=== PATIENT | female | born 1940 | race Caucasian/White ===

== ENCOUNTER 2023-07-06 05:36 | Inpatient (IN) | payer MEDICARE ==
[2023-07-06 05:51] LABS: Glucose,Whole Blood 220 mg/dL (70-110)
[2023-07-06 05:59] LABS: Basophils % (A) 0 %; Eosinophils # (A) 0.1 k/uL (0-0.7); Eosinophils % (A) 1 %; HCT 38.9 % (34.0-46.0); HGB 12.4 gm/dL (11.4-16.0); Hypochromasia Slight; Lymphocytes # (A) 0.5 k/uL (1.0-4.8); Lymphocytes % (A) 3 %; MCH 28.4 pg (25.0-35.0); MCHC 31.9 g/dL (31.0-37.0); MCV 89.1 fL (80.0-100.0); Mean Platelet Volume 9.2; Monocytes # (A) 0.3 k/uL (0-1.0); Monocytes % (A) 2 %; Neutrophils # (A) 14.8 k/uL (1.3-7.7); Neutrophils % (A) 94 %; Platelet Count 318 k/uL (150-450); RBC 4.36 m/uL (3.80-5.40); RDW 14.7 % (11.5-15.5); WBC 15.8 k/uL (3.8-10.6)
[2023-07-06 06:09] LABS: ALT 28 U/L (4-34); AST 35 U/L (14-36); African American GFR (CKD) >90 (>60 ml/min/1.73 sqM); Albumin 3.2 g/dL (3.5-5.0); Alkaline Phosphatase 102 U/L (38-126); Anion Gap 11 mmol/L; Blood Urea Nitrogen 15 mg/dL (7-17); Calcium 8.2 mg/dL (8.4-10.2); Carbon Dioxide 29 mmol/L (22-30); Chloride 93 mmol/L (98-107); Creatine Kinase 26 U/L (30-135); Glucose 235 mg/dL (74-99); Non-African American GFR(CKD) 83 (>60 ml/min/1.73 sqM); Sodium 133 mmol/L (137-145); Total Bilirubin 1.5 mg/dL (0.2-1.3)
--- NOTE | 2023-07-06 06:11 | ED ---
General Adult HPI - General Stated complaint: Possible stroke Time Seen by Provider: 07/06/23 05:38 Source: EMS Mode of arrival: EMS Limitations: altered mental status - History of Present Illness Initial comments: This is an 82-year-old female with a past medical history including previous CVA with right-sided deficits presents emergency department via EMS from a nursing facility for concern for a new stroke. It was reported the patient recently went to her nursing facility yesterday and was speaking it having full conversations around 10 PM which was her last known normal. The patient was awoken at 4:30 this morning and was reportedly minimally responsive, only to painful stimuli. EMS was called and arrival of the patient was responsive to painful stimuli however had slurring of speech and inability to answer any questions. On arrival, the patient was slurring her speech and mumbling without any comprehensible words. The patient denied of any movement in any of her extremities against gravity. The patient was able to provide any further answers any questions. - Related Data Home Medications Medication Instructions Recorded Confirmed Acetaminophen [Tylenol 8 Hour] 650 mg PO Q6H PRN 07/06/23 07/06/23 Apixaban [Eliquis] 2.5 mg PO BID@0700,1900 07/06/23 07/06/23 Aspirin 81 mg PO DAILY 07/06/23 07/06/23 Atorvastatin [Lipitor] 40 mg PO HS@199907/06/23 07/06/23 Citalopram Hydrobromide [CeleXA] 20 mg PO DAILY 07/06/23 07/06/23 Fludrocortisone [Florinef] 0.1 mg PO DAILY 07/06/23 07/06/23 Icy Hot Back External Patch 5% 1 patch TRANSDERM 07/06/23 07/06/23 Insulin Glargine,Hum.rec.anlog 5 units SQ HS@199907/06/23 07/06/23 [Lantus Solostar Pen] Insulin Lispro [humaLOG Kwikpen] See Protocol SQ ACHS 07/06/23 07/06/23 Levothyroxine Sodium [Synthroid] 25 mcg PO DAILY@0500 07/06/23 07/06/23 Metoprolol Tartrate [Lopressor] 25 mg PO BID 07/06/23 07/06/23 Multivitamins, Thera [Multivitamin 1 tab PO DAILY 07/06/23 07/06/23 (formulary)] amLODIPine [Norvasc] 5 mg PO DAILY 07/06/23 07/06/23 Allergies Allergy/AdvReac Type Severity Reaction Status Date / Time Sulfa (Sulfonamide Allergy Unknown Verified 07/06/23 08:03 Antibiotics) Review of Systems ROS Statement: Those systems with pertinent positive or pertinent negative responses have been documented in the HPI. ROS Other: All systems not noted in ROS Statement are negative. General Exam Limitations: altered mental status (ANOx0), physical limitation General appearance: lethargic Head exam: Present: atraumatic, normocephalic, normal inspection Eye exam: Present: normal appearance, PERRL Pupils: Present: normal accommodation ENT exam: Present: normal exam, normal oropharynx, mucous membranes moist Neck exam: Present: normal inspection, full ROM Respiratory exam: Present: normal lung sounds bilaterally Cardiovascular Exam: Present: normal rhythm, tachycardia, normal heart sounds GI/Abdominal exam: Present: soft, normal bowel sounds Extremities exam: Present: normal inspection, other (No movement of any e xtremity to gravity). Absent: full ROM Back exam: Present: normal inspection, full ROM Neurological exam: Present: altered (ANOx0), motor sensory deficit. Absent: alert, oriented X3, CN II-XII intact Psychiatric exam: Present: normal affect, other (Lethargic, arouses to painful stimuli only). Absent: normal mood Skin exam: Present: warm, dry Course Vital Signs 07/06/23 07/06/23 07/06/23 05:42 05:46 06:08 Temperature 96.9 F L Pulse Rate 112 H 96 93 Respiratory 22 20 20 Rate Blood Pressure 136/72 139/71 142/78 O2 Sat by Pulse 90 L 93 L 95 Oximetry Fraction of Inspired Oxygen (FIO2) 07/06/23 07/06/23 07/06/23 06:38 06:53 07:23 Temperature Pulse Rate 98 93 96 Respiratory 18 19 20 Rate Blood Pressure 136/78 118/73 O2 Sat by Pulse 96 95 96 Oximetry Fraction of Inspired Oxygen (FIO2) 07/06/23 07/06/23 07/06/23 12:00 16:00 18:30 Temperature 98.1 F 98.3 F Pulse Rate 98 85 120 H Respiratory 15 12 24 Rate Blood Pressure 156/86 140/70 171/107 O2 Sat by Pulse 97 95 79 L Oximetry Fraction of Inspired Oxygen (FIO2) 07/06/23 07/06/23 07/06/23 19:23 19:41 20:00 Temperature 98.1 F Pulse Rate 101 H Respiratory 24 Rate Blood Pressure 157/87 O2 Sat by Pulse 100 Oximetry Fraction of 100 100 Inspired Oxygen (FIO2) EKG Findings - EKG Comments: EKG Findings:: An EKG was obtained and was interpreted by myself showing a rate of 106, QRS duration of 91, QTC of 423. This EKG showed an atrial fibrillation with minor rapid ventricular response. There was however no ST segment elevation or depression noted. Medical Decision Making - Medical Decision Making Was pt. sent in by a medical professional or institution (, PA, TELEGRAPH INSPECTOR, urgent care, hospital, or [facility]...) When possible be specific @ -Yes, patient was sent in by nursing facility Did you speak to anyone other than the patient for history (EMS, parent, family, police, friend...)? What history was obtained from this source @ -Yes, EMS who stated the patient's last known normal was at 10 PM and was found at 4:30 this morning. Did you review nursing and triage notes (agree or disagree)? Why? @ -I reviewed and agree with nursing and triage notes Were old charts reviewed (outside hosp., previous admission, EMS record, old EKG, old radiological studies, urgent care reports/EKG's, [facility] records)? Report findings @ -No old charts were reviewed Differential Diagnosis (chest pain, altered mental status, abdominal pain women, abdominal pain men, vaginal bleeding, weakness, fever, dyspnea, syncope, headache, dizziness, GI bleed, back pain, seizure, CVA, palpatations, mental health)? @ -CVA, TIA, intracranial hemorrhage, intracranial mass EKG interpreted by me (3pts min.). @ -As above X-rays interpreted by me (1pt min.). @ -Chest x-ray was ordered at this time. CT interpreted by me (1pt min.). @ -CT head and CTA head and neck was obtained per stroke protocol and was interpreted by myself showing a right pericolosal artery occlusion and a chronic left-sided infarct. U/S interpreted by me (1pt. min.). @ -None done What testing was considered but not performed or refused? (CT, X-rays, U/S, labs)? Why? @ -None What meds were considered but not given or refused? Why? @ -None Did you discuss the management of the patient with other professionals (liza burns i.e., Dr., PA, TELEGRAPH INSPECTOR, lab, RT, psych nurse, sr. social media & mobile manager, portable power tool repairer, teacher, chief operations officer, home health care case manager)? Give summary @ -Yes, neurointerventionalist, Dr. Garcia was contacted per protocol at [phone]. He denied agreed that the patient is not a TPA candidate at this time as she is outside the window. The primary care physician was also contacted regarding admission. Was smoking cessation discussed for >3mins.? @ -No Was critical care preformed (if so, how long)? @ -Yes, see above Were there social determinants of health that impacted care today? How? (Homelessness, low income, unemployed, alcoholism, drug addiction, transportation, low edu. Level, literacy, decrease access to med. care, skilled nursing, rehab)? @ -No Was there de-escalation of care discussed even if they declined (Discuss DNR or withdrawal of care, Hospice)? DNR status @ -No What co-morbidities impacted this encounter? (DM, HTN, Smoking, COPD, CAD, Cancer, CVA, ARF, Chemo, Hep., AIDS, mental health diagnosis, sleep apnea, morbid obesity)? @ -Previous CVA, atrial fibrillation, hypertension Was patient admitted / discharged? Hospital course, mention meds given and route, prescriptions, significant lab abnormalities, going to OR and other pertinent info. @ -The patient was seen and evaluated in emergency department. Immediately on arrival, code stroke was called and code stroke protocol was followed. Imaging and laboratory workup was obtained. The patient had a significantly high NIH of 32 secondary to inability of the patient to follow commands and significant deficits. She was outside the window decided to be candidate at this time. Undiagnosed new problem with uncertain prognosis? @ -No Drug Therapy requiring intensive monitoring for toxicity (Heparin, Nitro, Insulin, Cardizem)? @ -No Were any procedures done? @ -No Diagnosis/symptom? @ -Acute CVA Acute, or Chronic, or Acute on Chronic? @ -Acute Uncomplicated (without systemic symptoms) or Complicated (systemic symptoms)? @ -Complicated Side effects of treatment? @ -No Exacerbation, Progression, or Severe Exacerbation? @ -No Poses a threat to life or bodily function? How? (Chest pain, [place], [place], pneumonia, PE, COPD, DKA, ARF, appy, cholecystitis, CVA, Diverticulitis, Homicidal, Suicidal, threat to staff... and all critical care pts) @ -Yes, worsening CVA can lead to permanent damage and possible . - Lab Data Result diagrams: 07/06/23 13:20 07/06/23 05:50 Lab Results 07/06/23 07/06/23 07/06/23 Range/Units 05:49 05:50 05:50 WBC 15.8 H (3.8-10.6) k/uL RBC 4.36 (3.80-5.40) m/uL Hgb 12.4 (11.4-16.0) gm/dL Hct 38.9 (34.0-46.0) % MCV 89.1 (80.0-100.0) fL MCH 28.4 (25.0-35.0) pg MCHC 31.9 (31.0-37.0) g/dL RDW 14.7 (11.5-15.5) % Plt Count 318 (150-450) k/uL MPV 9.2 Neutrophils % 94 % Lymphocytes % 3 % Monocytes % 2 % Eosinophils % 1 % Basophils % 0 % Neutrophils # 14.8 H (1.3-7.7) k/uL Lymphocytes # 0.5 L (1.0-4.8) k/uL Monocytes # 0.3 (0-1.0) k/uL Eosinophils # 0.1 (0-0.7) k/uL Basophils # 0.0 (0-0.2) k/uL Hypochromasia Slight PT 11.5 (9.0-12.0) sec INR 1.1 (<1.2) APTT 23.8 (22.0-30.0) sec Sodium (137-145) mmol/L Potassium (3.5-5.1) mmol/L Chloride (98-107) mmol/L Carbon Dioxide (22-30) mmol/L Anion Gap mmol/L BUN (7-17) mg/dL Creatinine (0.52-1.04) mg/dL Est GFR (CKD-EPI)AfAm (>60 ml/min/1.73 sqM) Est GFR (CKD-EPI)NonAf (>60 ml/min/1.73 sqM) Glucose (74-99) mg/dL POC Glucose (mg/dL) 220 H (70-110) mg/dL POC Glu Possum Trapper ID Christos Lauren Calcium (8.4-10.2) mg/dL Total Bilirubin (0.2-1.3) mg/dL AST (14-36) U/L ALT (4-34) U/L Alkaline Phosphatase (38-126) U/L Creatine Kinase (30-135) U/L Troponin I (0.000-0.034) ng/mL Total Protein (6.3-8.2) g/dL Albumin (3.5-5.0) g/dL 07/06/23 07/06/23 Range/Units 05:50 05:50 WBC (3.8-10.6) k/uL RBC (3.80-5.40) m/uL Hgb (11.4-16.0) gm/dL Hct (34.0-46.0) % MCV (80.0-100.0) fL MCH (25.0-35.0) pg MCHC (31.0-37.0) g/dL RDW (11.5-15.5) % Plt Count (150-450) k/uL MPV Neutrophils % % Lymphocytes % % Monocytes % % Eosinophils % % Basophils % % Neutrophils # (1.3-7.7) k/uL Lymphocytes # (1.0-4.8) k/uL Monocytes # (0-1.0) k/uL Eosinophils # (0-0.7) k/uL Basophils # (0-0.2) k/uL Hypochromasia PT (9.0-12.0) sec INR (<1.2) APTT (22.0-30.0) sec Sodium 133 L (137-145) mmol/L Potassium 3.4 L (3.5-5.1) mmol/L Chloride 93 L (98-107) mmol/L Carbon Dioxide 29 (22-30) mmol/L Anion Gap 11 mmol/L BUN 15 (7-17) mg/dL Creatinine 0.63 (0.52-1.04) mg/dL Est GFR (CKD-EPI)AfAm >90 (>60 ml/min/1.73 sqM) Est GFR (CKD-EPI)NonAf 83 (>60 ml/min/1.73 sqM) Glucose 235 H (74-99) mg/dL POC Glucose (mg/dL) (70-110) mg/dL POC Glu Possum Trapper ID Calcium 8.2 L (8.4-10.2) mg/dL Total Bilirubin 1.5 H (0.2-1.3) mg/dL AST 35 (14-36) U/L ALT 28 (4-34) U/L Alkaline Phosphatase 102 (38-126) U/L Creatine Kinase 26 L (30-135) U/L Troponin I <0.012 (0.000-0.034) ng/mL Total Protein 7.0 (6.3-8.2) g/dL Albumin 3.2 L (3.5-5.0) g/dL Critical Care Time Critical Care Time: Yes Total Critical Care Time: 35 Disposition Clinical Impression: CVA (cerebral vascular accident) Disposition: ADMITTED IP TO THIS [facility] Condition: Serious Is patient prescribed a controlled substance at d/c from ED?: No Time of Disposition: 06:30 Decision to Admit Reason: Admit from EC Decision Date: 07/06/23 Decision Time: 06:30
[2023-07-06 06:12] LABS: Potassium 3.4 mmol/L (3.5-5.1)
--- NOTE | 2023-07-06 06:31 | CT ---
EXAM: CT Head Without Intravenous Contrast CLINICAL HISTORY: ITS.REASON CT Reason: Neuro deficit, acute, stroke suspected TECHNIQUE: Axial computed tomography images of the head/brain without intravenous contrast. CTDI is 56 mGy and DLP is 1633.6 mGy-cm. This CT exam was performed using one or more of the following dose reduction techniques: automated exposure control, adjustment of the mA and/or kV according to patient size, and/or use of iterative reconstruction technique. COMPARISON: No relevant prior studies available. FINDINGS: Brain: Encephalomalacia within the left superior frontal gyrus with additional hypodensity extending to the left middle frontal gyrus. Findings likely relate to chronic infarction. No signs of acute infarction identified. Consider MRI if there is further concern. Areas of decreased attenuation in the deep cerebral white matter are consistent with small vessel ischemic/degenerative changes. The cerebral and cerebellar sulci are prominent consistent with brain atrophy. No hemorrhage. Ventricles: Unremarkable. No ventriculomegaly. Bones/joints: Unremarkable. No acute fracture. Soft tissues: Unremarkable. Vasculature: Atherosclerotic disease. Sinuses: Unremarkable as visualized. Mastoid air cells: Unremarkable as visualized. No mastoid effusion. Orbits: Bilateral lens replacements. IMPRESSION: 1. Encephalomalacia within the left superior frontal gyrus with additional hypodensity extending to the left middle frontal gyrus. Findings likely relate to chronic infarction. No signs of acute infarction identified. Consider MRI if there is further concern. 2. Small vessel ischemic/degenerative changes. 3. Cerebral and cerebellar atrophy.
--- NOTE | 2023-07-06 06:36 | CT ---
EXAM: CT Angiography Head and Neck With Intravenous Contrast CLINICAL HISTORY: ITS.REASON CT Reason: Neuro deficit, acute, stroke suspected TECHNIQUE: [place] of [place]/head and neck CT angiography protocol performed with intravenous contrast. CTDI is 48.8 mGy and DLP is 1119 mGy-cm. This CT exam was performed using one or more of the following dose reduction techniques: automated exposure control, adjustment of the mA and/or kV according to patient size, and/or use of iterative reconstruction technique. MIP reconstructed images were created and reviewed. COMPARISON: None. FINDINGS: Limitations: Limited examination given lack of thin axial imaging of the head. This limits diagnostic accuracy. HEAD: Right anterior cerebral artery: Unremarkable. No significant stenosis at the visualized segments. Anterior communicating artery is present. No aneurysm. Right middle cerebral artery: Unremarkable. No significant stenosis at the visualized segments. No aneurysm. Right posterior cerebral artery: Unremarkable. No occlusion or significant stenosis. No aneurysm. Right intracranial internal carotid artery: Moderate stenosis of the supraclinoid right internal carotid artery. No dissection or occlusion. Right intracranial vertebral artery: Unremarkable. No significant stenosis. No dissection or occlusion. Left anterior cerebral artery: Unremarkable. No significant stenosis at the visualized segments. No aneurysm. Left middle cerebral artery: Unremarkable. No significant stenosis at the visualized segments. No aneurysm. Left posterior cerebral artery: Unremarkable. No occlusion or significant stenosis. No aneurysm. Left intracranial internal carotid artery: Unremarkable. No significant stenosis. No dissection or occlusion. Left intracranial vertebral artery: Unremarkable. No significant stenosis. No dissection or occlusion. Basilar artery: Unremarkable. No significant stenosis. No aneurysm. Other vasculature: Atherosclerotic calcifications and plaque at the proximal left internal carotid artery without evidence of flow-limiting stenosis per NASCET criteria. Atherosclerotic calcifications and plaque at the proximal right internal carotid artery without evidence of flow- limiting stenosis per NASCET criteria. 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 Consider correlation with neurologic examination. NECK: Right common carotid artery: Unremarkable. No significant stenosis. No dissection or occlusion. Right extracranial internal carotid artery: Unremarkable. No significant stenosis. No dissection or occlusion. Right external carotid artery: Unremarkable. No occlusion. Right extracranial vertebral artery: Unremarkable. No significant stenosis. No dissection or occlusion. Left common carotid artery: Unremarkable. No significant stenosis. No dissection or occlusion. Left extracranial internal carotid artery: Unremarkable. No significant stenosis. No dissection or occlusion. Left external carotid artery: Unremarkable. No occlusion. Left extracranial vertebral artery: Unremarkable. No significant stenosis. No dissection or occlusion. Lung apices: Unremarkable as visualized. HEAD and NECK: Bones/joints: Moderate right vertebral ostial stenosis. No discrete lytic or blastic abnormalities. Soft tissues: Unremarkable. CAROTID STENOSIS REFERENCE USING NASCET CRITERIA: % ICA stenosis = (1 - narrowest ICA diameter/diameter of distal cervical ICA) x 100. Mild - <50% stenosis. Moderate - 50-69% stenosis. Severe - 70-94% stenosis. Near occlusion - 95-99% stenosis. Occluded - 100% stenosis. IMPRESSION: 1. Limited examination given lack of thin axial imaging of the head. This limits diagnostic accuracy. 2. 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 Consider correlation with neurologic examination. 3. [place] of atherosclerotic disease as described in the body of report. <MYCVCSECTION> Communications: 07/06/23 06:47 Call Doctor Regarding Above results, called Dr. Torres on 07/06 06:47 (-04:00)
[2023-07-06 06:45] LABS: INR 1.1 (<1.2); Partial Thromboplastin Time 23.8 sec (22.0-30.0); Prothrombin Time 11.5 sec (9.0-12.0)
[2023-07-06] MEDS: SODIUM CHLORIDE 0.9% 1,000 ML IV SCH (06:48)
--- NOTE | 2023-07-06 07:32 | XR ---
EXAMINATION TYPE: XR chest 1V portable DATE OF EXAM: 07/06/2023 HISTORY: Shortness of breath. COMPARISON: None. TECHNIQUE: Single view of the chest is submitted. FINDINGS: Demonstrated are scattered senescent parenchymal change. There is pulmonary venous congestion scattered infiltrates, bilateral pleural effusions and cardiomeg nhan. Hilar and mediastinal structures are within normal limits. Degenerative changes are seen of the dorsal spine. IMPRESSION: 1. There is pulmonary venous congestion scattered infiltrates, bilateral pleural effusions and cardi omegaly.
--- NOTE | 2023-07-06 10:50 | US ---
EXAMINATION TYPE: US carotid duplex BILAT DATE OF EXAM: 07/06/2023 COMPARISON: CTA CLINICAL INDICATION: Female, 82 years old with history of stroke; Stroke, unresponsive TECHNIQUE: Carotid duplex ultrasound examination. Indirect Doppler criteria was utilized. FINDINGS: EXAM MEASUREMENTS: RIGHT: Peak Systolic Velocity (PSV) cm/sec ----- Right CCA: 51.9 ----- Right ICA: 72.4 ----- Right ECA: 100.0 ICA/CCA ratio: 1.4 RIGHT: End Diastole cm/sec ----- Right CCA: 9.2 ----- Right ICA: 9.8 ----- Right ECA: 0.0 LEFT: Peak Systolic Velocity (PSV) cm/sec ----- Left CCA: 46.9 ----- Left ICA: 63.6 ----- Left ECA: 86.7 ICA/CCA ratio: 1.4 LEFT: End Diastole cm/sec ----- Left CCA: 12.0 ----- Left ICA: 23.5 ----- Left ECA: 0.0 VERTEBRALS (direction of flow): Right Vertebral: Antegrade Left Vertebral: Antegrade Rhythm: Arrhythmia GLASS SAGGER NOTES: Pt heavy breathing, unresponsive during exam- difficult to scan No evidence of elevated velocities bilaterally IMPRESSION: Bilateral atherosclerotic changes with no significant hemodynamic stenosis identified. Criteria for Assigning % of Stenosis / Diameter reduction (Estimation based on the indirect measurements of the internal carotid artery velocities (ICA PSV). 1. Normal (no stenosis)=ICA PSV < 125 cm/s: ratio < 2.0: ICA EDV<40 cm/s. 2. Less than 50% stenosis=ICA PSV < 125 cm/s: ratio < 2.0: ICA EDV<40 cm/s. 3. 50 to 69% stenosis=ICA PSV of 125 to 230 cm/s: ration 2.0 ? 4.0: ICA EDV 40-100 cm/s. 4. Greater than 70% stenosis to near occlusion= ICA PSV > 230 cm/s: ratio > 4.0: ICA EDV > 100 cm/s. 5. Near occlusion= ICA PSV velocities may be low or undetectable: variable ratio and ICA EDV. 6. Total occlusion=unable to detect flow.
[2023-07-06] MEDS ORDERED: ACETAMINOPHEN TAB 325 MG TAB PO PRN (12:18)
--- NOTE | 2023-07-06 12:22 | P.CNNES ---
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 History is obtained from the patient's daughters were at bedside as well as medical record. According to patient daughters the patient the currently resides in [place] and it seems that she had an episode of unresponsiveness. Per the daughter the patient had an episode of unresponsiveness this past Sunday and it was brief. She had extensive workup and multiple EEGs according to the daughter and was negative for seizure. She had her initial stroke in January 2023 and had another stroke about 3 days ago. Per the daughter with her stroke she has episode of unresponsiveness in the past. She had EEG's and was told no seizure. She was evaluated by Dr. Mondragon and according to the daughter initially that when the patient was having episode of unresponsiveness she was initially placed on the Keppra but that was weaned off and then eventually stopped in April 2023 since was not felt they were seizures. According to the daughter the EEG she thinks they're short EEGs less than 1 hour. Currently she is more responsive for now. Patient is on eliquis 2.5mg bid, ASA 81mg daily and Lipitor 40mg daily as home medications. Some of the workup during his hospital visit consisted of: White blood cells 5.8 thousand and slightly neutrophilic Initial serum glucose is 235. Calcium is 8.2. Sodium is 133. Potassium 3.4. AST and ALT is within normal limits. CT of the head is reported as encephalomalacia with left superior frontal gyrus additional hypodensity and extending to the left middle frontal gyrus. Findings likely related to chronic infarction. No signs of acute infarction identified. Consider MRI there is further concern. Small vessel ischemic/degenerative changes. Cerebral and cerebellar atrophy. 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 CT of the head and neck was reported as limited examination given the lack of thin axial imaging of the head. This limits diagnostic accuracy. 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 Consider correlation with neurologic examination. [place] of atherosclerotic disease as described in the body of the report. Carotid duplex is reported as bilateral after squatting changes with no significant hemodynamic stenosis identified. Review of Systems Review of system: The 12 point system was reviewed and apparent positive and negative per HPI. Medications and Allergies Home Medications Medication Instructions Recorded Confirmed Type Acetaminophen [Tylenol 8 Hour] 650 mg PO Q6H PRN 07/06/23 07/06/23 History Apixaban [Eliquis] 2.5 mg PO BID@0700,1900 07/06/23 07/06/23 History Aspirin 81 mg PO DAILY 07/06/23 07/06/23 History Atorvastatin [Lipitor] 40 mg PO HS@199907/06/23 07/06/23 History Citalopram Hydrobromide [CeleXA] 20 mg PO DAILY 07/06/23 07/06/23 History Fludrocortisone [Florinef] 0.1 mg PO DAILY 07/06/23 07/06/23 History Icy Hot Back External Patch 5% 1 patch TRANSDERM HS 07/06/23 07/06/23 History Insulin Glargine,Hum.rec.anlog 5 units SQ HS@199907/06/23 07/06/23 History [Lantus Solostar Pen] Insulin Lispro [humaLOG Kwikpen] See Protocol SQ ACHS 07/06/23 07/06/23 History Levothyroxine Sodium [Synthroid] 25 mcg PO DAILY@0500 07/06/23 07/06/23 History Metoprolol Tartrate [Lopressor] 25 mg PO BID 07/06/23 07/06/23 History Multivitamins, Thera [Multivitamin 1 tab PO DAILY 07/06/23 07/06/23 History (formulary)] amLODIPine [Norvasc] 5 mg PO DAILY 07/06/23 07/06/23 History Allergies Allergy/AdvReac Type Severity Reaction Status Date / Time Sulfa (Sulfonamide Allergy Unknown Verified 07/06/23 08:03 Antibiotics) Physical Examination - Vital Signs Vital Signs: Vital Signs Temp Pulse Resp BP Pulse Ox 07/06/23 07:23 96 20 118/73 96 07/06/23 06:53 93 19 136/78 95 07/06/23 06:38 98 18 96 07/06/23 06:08 93 20 142/78 95 07/06/23 05:46 96 20 139/71 93 L 07/06/23 05:42 96.9 F L 112 H 22 136/72 90 L Intake and Output 07/05/23 07/06/23 07/06/23 22:59 06:59 14:59 Other: Weight 70 kg GENERAL: The patient is lying in bed and is not in acute distress. NEUROLOGICAL: Higher mental function: The patient is awake, alert, oriented to self, time. Patient states she is in the hospital but states she's over at [facility] then later states she is in [place]. Patient is slow following commands. Patient is following simple commands. Language is limited but no aphasia. No neglect. Cranial nerves: The pupils are round, equal and reactive to light. Visual vega are full to confrontation throughout. Extraocular movement is intact no nystagmus is noted. Facial sensation is normal to touch throughout. The facial strength is normal throughout. Tongue is midline and moved [id number] without any difficulty. No dysarthria is noted. Has mild hypophonia. Motor: The strength is limited in assessment individual muscles because of cooperation. Is lifting bilateral upper extremities but had to ascetain if focal weakness. Lowers are very limited but is able to wiggle right toes but not movement on the left (per family her baseline is has movement on the left). Normal bulk. Cerebellum: Unable to assess. Sensation: Inconsistent. Reflexes (right/left): Unable to assess. Plantars are mute bilaterally. Results - Laboratory Findings CBC and BMP: 07/06/23 05:50 07/06/23 05:50 Abnormal Lab Findings: Abnormal Labs 07/06/23 07/06/23 07/06/23 05:49 05:50 05:50 WBC 15.8 H Neutrophils # 14.8 H Lymphocytes # 0.5 L Sodium 133 L Potassium 3.4 L Chloride 93 L Glucose 235 H POC Glucose (mg/dL) 220 H Calcium 8.2 L Total Bilirubin 1.5 H Creatine Kinase 26 L Albumin 3.2 L Assessment and Plan Assessment: This is an 82-year-old woman with history of multiple strokes with residual righ t lower extremity weakness, atrial fibrillation on eliquis and ASA, episodes of unresponsiveness but had EEGs in the past and was told no seizures and was initially on short course of Keppra but eventually discontinued by her neurologist in April 2023 who presented emergency department because of the episode of unresponsiveness over [place]. Episode of unresponsiveness and on examination has significant left leg weakness--- rule out acute ischemic stroke versus post ictal ?occlusion of right pericallosal artery just distal to its ostium on CTA but examination is limited. History of multiple strokes (left JEAN territory stroke) in the first stroke is in January 2023 and the last one was about 3 weeks ago with residual right lower extremity weakness History of unresponsiveness and had multiple routine EEGs according to family members and it was feltseizures therefore Keppra was discontinued in April 2023 History of atrial fibrillation on eliquis and ASA. Plan: I ordered MRI of the brain, MRA of the head to rule out any stroke or any occlusion. And ordered 2D echo. Lipid panel is ordered and pending. I ordered a routine EEG to rule out any underlying seizure or discharges. I spoke with the family members (daughters) and they want to hold off antiepileptic use until the workup is done. If MR the brain is negative for acute stroke consider possible starting antiepileptic drug since it is possible that her prior EEGs were negative for any seizures or discharges since with are not capturing the episode while they're happening. Also consider a prolonged EEG as an outpatient. Family would like to keep her on the same dose of Eliquis 2.5mg bid and ASA 81mg daily. But if she does have any acute ischemic stroke then the event focal upon Eliquis or will change aspirin to Plavix. Continue Lipitor 40 mg daily at bedtime for secondary stroke prophylaxis I ordered TSH, vitamin B12, folate, ammonia, HbA1c. Continue neuro checks Cardiac monitoring PT, OT and RECORD CENTER COORDINATOR are consulted. Will defer the rest of medical management to the primary team. The plan is discussed with patient and her two daughters who are at bedside. Thank you for the consultation. Dr. Roca will start neurology service tomorrow A.M. Time with Patient: Greater than 30
[2023-07-06] MEDS: HYDROcodone/APAP 5-325MG 1 EACH TAB PO PRN (13:04)
[2023-07-06] MEDS: ASPIRIN 81 MG PO SCH (13:04)
[2023-07-06 13:44] LABS: Basophils % (A) 0 %; Eosinophils # (A) 0.1 k/uL (0-0.7); Eosinophils % (A) 1 %; HCT 35.1 % (34.0-46.0); HGB 11.4 gm/dL (11.4-16.0); Hypochromasia Slight; Lymphocytes # (A) 0.7 k/uL (1.0-4.8); Lymphocytes % (A) 5 %; MCH 28.9 pg (25.0-35.0); MCHC 32.4 g/dL (31.0-37.0); MCV 89.1 fL (80.0-100.0); Mean Platelet Volume 9.1; Monocytes # (A) 0.4 k/uL (0-1.0); Monocytes % (A) 3 %; Neutrophils # (A) 11.1 k/uL (1.3-7.7); Neutrophils % (A) 90 %; Platelet Count 291 k/uL (150-450); RBC 3.94 m/uL (3.80-5.40); RDW 14.7 % (11.5-15.5); WBC 12.3 k/uL (3.8-10.6)
--- NOTE | 2023-07-06 17:21 | P.HPIM ---
History of Present Illness H&P Date: 07/06/23 Chief Complaint: Altered mental status 82-year-old female with a past medical history including previous CVA with right-sided deficits presents emergency department via EMS from a nursing facility for concern for a new stroke. It was reported the patient recently went to her nursing facility yesterday and was speaking it having full conversa tions around 10 PM which was her last known normal. The patient was awoken at 4:30 this morning and was reportedly minimally responsive, only to painful stimuli. EMS was called and arrival of the patient was responsive to painful stimuli however had slurring of speech and inability to answer any questions. On arrival, the patient was slurring her speech and mumbling without any comprehensible words. The patient denied of any movement in any of her extremities against gravity. The patient was able to provide any further answers any questions. White blood cells 5.8 thousand and slightly neutrophilic Initial serum glucose is 235. Calcium is 8.2. Sodium is 133. Potassium 3.4. AST and ALT is within normal limits. CT of the head is reported as encephalomalacia with left superior frontal gyrus additional hypodensity and extending to the left middle frontal gyrus. Findings likely related to chronic infarction. No signs of acute infarction identified. Consider MRI there is further concern. Small vessel ischemic/degenerative changes. Cerebral and cerebellar atrophy. CT of the head and neck was reported as limited examination given the lack of thin axial imaging of the head. This limits diagnostic accuracy. 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 Consider correlation with neurologic examination. Carotid duplex is reported as bilateral after squatting changes with no significant hemodynamic stenosis identified. Review of Systems REVIEW OF SYSTEMS: CONSTITUTIONAL: No fever, no malaise, no fatigue. HEENT: No recent visual problems or hearing problems. Denied any sore throat. CARDIOVASCULAR: No chest pain, orthopnea, PND, no palpitations, no syncope. PULMONARY: No shortness of breath, no cough, no hemoptysis. GASTROINTESTINAL: No diarrhea, no nausea, no vomiting, no abdominal pain. NEUROLOGICAL: No headaches, no weakness, no numbness. HEMATOLOGICAL: Denies any bleeding or petechiae. GENITOURINARY: Denies any burning micturition, frequency, or urgency. MUSCULOSKELETAL/RHEUMATOLOGICAL: Denies any joint pain, swelling, or any muscle pain. ENDOCRINE: Denies any polyuria or polydipsia. The rest of the 14-point review of systems is negative. Medications and Allergies Home Medications Medication Instructions Recorded Confirmed Type Acetaminophen [Tylenol 8 Hour] 650 mg PO Q6H PRN 07/06/23 07/06/23 History Apixaban [Eliquis] 2.5 mg PO BID@0700,1900 07/06/23 07/06/23 History Aspirin 81 mg PO DAILY 07/06/23 07/06/23 History Atorvastatin [Lipitor] 40 mg PO HS@199907/06/23 07/06/23 History Citalopram Hydrobromide [CeleXA] 20 mg PO DAILY 07/06/23 07/06/23 History Fludrocortisone [Florinef] 0.1 mg PO DAILY 07/06/23 07/06/23 History Icy Hot Back External Patch 5% 1 patch TRANSDERM HS 07/06/23 07/06/23 History Insulin Glargine,Hum.rec.anlog 5 units SQ HS@199907/06/23 07/06/23 History [Lantus Solostar Pen] Insulin Lispro [humaLOG Kwikpen] See Protocol SQ ACHS 07/06/23 07/06/23 History Levothyroxine Sodium [Synthroid] 25 mcg PO DAILY@0500 07/06/23 07/06/23 History Metoprolol Tartrate [Lopressor] 25 mg PO BID 07/06/23 07/06/23 History Multivitamins, Thera [Multivitamin 1 tab PO DAILY 07/06/23 07/06/23 History (formulary)] amLODIPine [Norvasc] 5 mg PO DAILY 07/06/23 07/06/23 History Allergies Allergy/AdvReac Type Severity Reaction Status Date / Time Sulfa (Sulfonamide Allergy Unknown Verified 07/06/23 08:03 Antibiotics) Physical Exam Vitals: Vital Signs Temp Pulse Resp BP Pulse Ox 07/06/23 07:23 96 20 118/73 96 07/06/23 06:53 93 19 136/78 95 07/06/23 06:38 98 18 96 07/06/23 06:08 93 20 142/78 95 07/06/23 05:46 96 20 139/71 93 L 07/06/23 05:42 96.9 F L 112 H 22 136/72 90 L Intake and Output 07/05/23 07/06/23 07/06/23 22:59 06:59 14:59 Other: Weight 70 kg General appearance: lethargic Head exam: Present: atraumatic, normocephalic, normal inspection Eye exam: Present: normal appearance, PERRL Pupils: Present: normal accommodation ENT exam: Present: normal exam, normal oropharynx, mucous membranes moist Neck exam: Present: normal inspection, full ROM Respiratory exam: Present: normal lung sounds bilaterally Cardiovascular Exam: Present: normal rhythm, tachycardia, normal heart sounds GI/Abdominal exam: Present: soft, normal bowel sounds Extremities exam: Present: normal inspection, other (No movement of any extremity to gravity). Absent: full ROM Back exam: Present: normal inspection, full ROM Neurological exam: Present: altered (ANOx0), motor sensory deficit. Absent: alert, oriented X3, CN II-XII intact Psychiatric exam: Present: normal affect, other (Lethargic, arouses to painful stimuli only). Absent: normal mood Skin exam: Present: warm, dry Results CBC & Chem 7: 07/06/23 13:20 07/06/23 05:50 Labs: Abnormal Lab Results - Last 24 Hours (Table) 07/06/23 07/06/23 07/06/23 Range/Units 05:49 05:50 05:50 WBC 15.8 H (3.8-10.6) k/uL Neutrophils # 14.8 H (1.3-7.7) k/uL Lymphocytes # 0.5 L (1.0-4.8) k/uL Sodium 133 L (137-145) mmol/L Potassium 3.4 L (3.5-5.1) mmol/L Chloride 93 L (98-107) mmol/L Glucose 235 H (74-99) mg/dL POC Glucose (mg/dL) 220 H (70-110) mg/dL Calcium 8.2 L (8.4-10.2) mg/dL Total Bilirubin 1.5 H (0.2-1.3) mg/dL Creatine Kinase 26 L (30-135) U/L Albumin 3.2 L (3.5-5.0) g/dL Assessment and Plan Assessment: 1. Weakness/episode of unresponsiveness; CVA versus seizure disorder -- CT reveals questionable occlusion of right pericallosal artery just distal to its ostium; examination seems to be limited -- Patient has been evaluated by neurology with following recommendations -- MRI/MRA of the brain; 2-D echo; EEG to rule out seizure disorder -- Lipid profile, TSH, vitamin B12, folate, ammonia, HbA1c ordered - Monitor neuro checks; continue cardiac monitoring - Consult PT/OT/LIQUEFIER -- keep her on the same dose of Eliquis 2.5mg bid and ASA 81mg daily. But if she does have any acute ischemic stroke then the event focal upon Eliquis or will change aspirin to Plavix. Continue Lipitor 40 mg daily at bedtime for secondary stroke prophylaxis 2. Hypertension; Norvasc 5 mg daily; metoprolol 25 mg twice a day 3. Diabetes mellitus; long-term insulin use; continue home dose of insulin glargine; monitor Accu-Cheks before meals and at bedtime with insulin sliding scale 4. Hyperlipidemia; Lipitor 40 mg by mouth daily at bedtime 5. History of atrial fibrillation; on eliquis and ASA; remains rate controlled on metoprolol. 6. Hypothyroidism; levothyroxin 25 MCG daily DVT prophylaxis; SCDs/systemic anticoagulation CODE STATUS; full code
--- NOTE | 2023-07-06 17:29 | EEG ---
ELECTROENCEPHALOGRAM REPORT CLINICAL HISTORY: This is an 82-year-old woman with a history of stroke, who presents from nursing facility because of episode of unresponsiveness. The video EEG is obtained to evaluate for seizure and epileptiform activity. RELEVANT MEDICATIONS: The patient is not on any antiepileptic drugs. EEG TYPE: A routine 21-channel EEG with video using the 10/20 electrode placement system. DESCRIPTION: Wakefulness is obtained. During awake state, the background consists of low-to- moderate voltage of 6 to 7 Hz intermixed with delta activity. There is no physiological stage II sleep architecture. There is no focal slowing. INTERICTAL AND ICTAL: None. ACTIVATION PROCEDURE: Photic stimulation did not evoke a posterior driving response. There is no abnormality during the photic stimulation. Hyperventilation is not performed. CLINICAL INTERPRETATION: This is an abnormal routine EEG. The background slowing is suggestive of mild-to- moderate encephalopathy. Otherwise, there is no focal slowing, epileptiform discharge, or seizure on the EEG. Clinical correlation is recommended. MMLAURA / GERARDON: [id number] / SANTO
[2023-07-06 18:07] LABS: Appearance,Urine Clear (Clear); Bilirubin,Urine Negative (Negative); Blood,Urine Negative (Negative); Color,Urine Yellow; Glucose,Urine (UA) 4+ (Negative); Ketones,Urine 1+ (Negative); Leukocyte Esterase,Urine Negative (Negative); Nitrite,Urine Negative (Negative); Protein,Urine Trace (Negative); Urobilinogen,Urine <2.0 mg/dL (<2.0)
[2023-07-06] MEDS ORDERED: FUROSEMIDE 10 MG/ML 4 ML VIAL IV STA (18:32)
[2023-07-06 18:50] LABS: ABG HCO3 32 mmol/L (21-25); ABG Oxygen Saturation 97.5 % (94-97); ABG PCO2 40 mmHg (35-45); ABG PH 7.51 (7.35-7.45); ABG PO2 95 mmHg (83-108); ABG TCO2 33 mmol/L (19-24); Allen Test Performed? Yes
[2023-07-06 20:38] LABS: Glucose,Whole Blood 163 mg/dL (70-110)
[2023-07-06] MEDS: INSULIN ASPART (NovoLOG) 100 UNIT/ML VIAL SQ SCH (22:05)
[2023-07-06] MEDS: ATORVASTATIN 40 MG TAB PO SCH (22:05)
[2023-07-06] MEDS: INSULIN DETEMIR (LEVEMIR) 100 UNIT/ML SYR SQ SCH (23:05)
[2023-07-07 06:20] LABS: Glucose,Whole Blood 173 mg/dL (70-110)
[2023-07-07] MEDS: LEVOTHYROXINE 25 MCG TAB PO SCH (06:46)
[2023-07-07 09:52] LABS: Glucose,Whole Blood 163 mg/dL (70-110)
[2023-07-07] MEDS: MULTIVITAMINS, THERA 1 EACH TAB PO SCH (09:58)
[2023-07-07] MEDS: ASPIRIN 81 MG PO SCH (09:58)
[2023-07-07] MEDS: FLUDROCORTISONE 0.1 MG TAB PO SCH (09:58)
[2023-07-07] MEDS: CITALOPRAM HYDROBROMIDE 20 MG TAB PO SCH (09:58)
[2023-07-07] MEDS: INSULIN ASPART (NovoLOG) 100 UNIT/ML VIAL SQ SCH ×4 (10:00→20:56)
[2023-07-07] MEDS ORDERED: FUROSEMIDE 10 MG/ML 2 ML VIAL IV ONE (10:13)
--- NOTE | 2023-07-07 10:56 | CA ---
Transthoracic Echo Report Name: Willow Daniels Age: 82 Gender: F : 1940 Exam Date: 07/07/2023 08:57 Exam Location: [facility] Ht (in): 60 Wt (lb): 154 Ordering Physician: Kaushal Aguilera MD Attending/Referring Phys: Ale Easley;[id number] Warp Doffer Sharla Artis RDCS Procedure CPT: Indications: stroke Cardiac Hx: Hx of CABG Technical Quality: Good Contrast 1: Total Dose (mL): Contrast 2: Total Dose (mL): MEASUREMENTS (Male / Female) Normal Values 2D ECHO LV Diastolic Diameter PLAX 3.6 cm 4.2 - 5.9 / 3.9 - 5.3 cm LV Systolic Diameter PLAX 2.6 cm IVS Diastolic Thickness 1.2 cm 0.6 - 1.0 / 0.6 - 0.9 cm LVPW Diastolic Thickness 1.1 cm 0.6 - 1.0 / 0.6 - 0.9 cm LV Relative Wall Thickness 0.6 RV Internal Dim ED PLAX 3.5 cm LA Systolic Diameter LX 3.6 cm 3.0 - 4.0 / 2.7 - 3.8 cm LV Diastolic Volume MOD BP 30.9 cm??? 67 - 155 / 56 - 104 cm??? LV Systolic Volume MOD BP 24.7 cm??? - 58 / 19 - 49 cm??? LV Ejection Fraction MOD BP 19.9 % >= 55 % LV Cardiac Index MOD BP 337.8 cm???/min???m??? LV Diastolic Volume MOD 4C 28.0 cm??? LV Systolic Volume MOD 4C 16.8 cm??? LV Ejection Fraction MOD 4C 39.9 % LV Cardiac Index MOD 4C 613.2 cm???/min???m??? LV Diastolic Length 4C 6.7 cm LV Systolic Length 4C 5.7 cm LV Diastolic Volume MOD 2C 43.8 cm??? LV Systolic Volume MOD 2C 23.3 cm??? LV Ejection Fraction MOD 2C 46.9 % LV Cardiac Index MOD 2C 1129.6 cm???/min???m??? LV Diastolic Length 2C 6.3 cm LV Systolic Length 2C 4.5 cm LA Volume 61.0 cm??? 18 - 58 / 22 - 52 cm??? M-MODE Aortic Root Diameter MM 3.1 cm MV E Point Septal Separation 0.8 cm AV Cusp Separation MM 1.8 cm DOPPLER AV Peak Velocity 107.7 cm/s AV Peak Gradient 4.6 mmHg AI Peak Velocity 292.2 cm/s AI Peak Gradient 34.1 mmHg AI Pressure Half Time 665.4 ms MV Area PHT 5.1 cm??? MV Deceleration Time 135.9 ms TR Peak Velocity 338.2 cm/s TR Peak Gradient 45.8 mmHg Right Ventricular Systolic Press 50.7 mmHg FINDINGS Left Ventricle Left ventricular ejection fraction is estimated at 40-45 %. Small left ventricular cavity. Mildly increased septal wall thickness. Mildly increased posterior wall thickness. Moderatly decreased left ventricular ejection fraction. Right Ventricle Mild right ventricular dilatation. Moderate pulmonary hypertension. Right Atrium Normal right atrial size. Left Atrium Mildly increased left atrial volume. Mitral Valve Mitral valve thickened. Mild mitral annular calcification. Mild to moderate mitral regurgitation. Aortic Valve Trileaflet aortic valve. Mild aortic regurgitation. Tricuspid Valve Structurally normal tricuspid valve. Mild tricuspid regurgitation. Pulmonic Valve Structurally normal pulmonic valve. No pulmonic regurgitation. Pericardium No pericardial effusion, pleural effusion. Aorta Normal size aortic root and proximal ascending aorta. CONCLUSIONS Mildly impaired LV function with EF between 40-45% Thickened mitral valve/mitral valve prolapse was mild to moderate MR Previewed by: Dr. Bernard Farrell MD (Electronically Signed) Final Date: 07 July 2023 10:55
[2023-07-07 11:35] LABS: Glucose,Whole Blood 168 mg/dL (70-110)
--- NOTE | 2023-07-07 11:43 | P.CNPUL ---
History of Present Illness Consult date: 07/07/23 Requesting physician: Jet Coulter Reason for consult: other Chief complaint: Strokelike symptoms. History of present illness: Pulmonary consult dated 07/07/2023. 82-year-old female seen in the emergency department, on July 06. She has a history of prior CVA with right-sided deficits, and presents to the emergency department, from a nursing facility, for possible new CVA. The patient was found to be minimally responsive at the [facility], and only responsive to painful stimuli. For that reason, EMS was called, and she was brought to be evaluated. On arrival to the ER, the patient was slurring her words, and mumbling, without any comprehensible words. Brain CT showed evidence of encephalomalacia, within the left superior frontal gyrus with additional hypodensity extending to the left middle frontal gyrus. Findings were likely to reflect more chronic infarction then acute abnormality. Laboratory data includes a white count 12.3, hemoglobin 11.4, hematocrit 35.1, and a normal platelet count. Blood gases show pO2 of 95, pCO2 40, pH is 7.51. Sodium 133, potassium 3.4, chlorides 93, CO2 29, within normal BUN and creatinine. Pro- calcitonin level was 0.28. TSH was normal. Chest x-ray showed evidence of pulmonary vascular congestion, scattered infiltrates, and bilateral pleural effusions with cardiomegaly. Review of Systems REVIEW OF SYSTEMS: CONSTITUTIONAL: Confused. NEUROLOGIC: Slurred speech, mumbling her words. HEENT: [ Negative.] CARDIAC: [Negative.] PULMONARY: [Negative.] GI: [Negative.] : [Negative.] RHEUMATOLOGIC: [ Negative.] IMMUNOLOGIC: [ Negative.] ENDOCRINE: [Negative. ] DERMATOLOGIC: [Negative.] Medications and Allergies Home Medications Medication Instructions Recorded Confirmed Type Acetaminophen [Tylenol 8 Hour] 650 mg PO Q6H PRN 07/06/23 07/06/23 History Apixaban [Eliquis] 2.5 mg PO BID@0700,1900 07/06/23 07/06/23 History Aspirin 81 mg PO DAILY 07/06/23 07/06/23 History Atorvastatin [Lipitor] 40 mg PO HS@2000 07/06/23 07/06/23 History Citalopram Hydrobromide [CeleXA] 20 mg PO DAILY 07/06/23 07/06/23 History Fludrocortisone [Florinef] 0.1 mg PO DAILY 07/06/23 07/06/23 History Icy Hot Back External Patch 5% 1 patch TRANSDERM HS 07/06/23 07/06/23 History Insulin Glargine,Hum.rec.anlog 5 units SQ HS@199907/06/23 07/06/23 History [Lantus Solostar Pen] Insulin Lispro [humaLOG Kwikpen] See Protocol SQ ACHS 07/06/23 07/06/23 History Levothyroxine Sodium [Synthroid] 25 mcg PO DAILY@0500 07/06/23 07/06/23 History Metoprolol Tartrate [Lopressor] 25 mg PO BID 07/06/23 07/06/23 History Multivitamins, Thera [Multivitamin 1 tab PO DAILY 07/06/23 07/06/23 History (formulary)] amLODIPine [Norvasc] 5 mg PO DAILY 07/06/23 07/06/23 History Allergies Allergy/AdvReac Type Severity Reaction Status Date / Time Sulfa (Sulfonamide Allergy Unknown Verified 07/06/23 08:03 Antibiotics) Physical Exam Osteopathic Statement: *. No significant issues noted on an osteopathic structural exam other than those noted in the History and Physical/Consult. Vitals: Vital Signs Temp Pulse Pulse Pulse Resp BP BP 07/07/23 11:25 07/07/23 09:55 98 F 99 20 152/82 07/07/23 08:35 07/07/23 04:47 07/07/23 04:00 97.2 F L 104 H 145/73 07/07/23 02:00 104 H 24 07/06/23 23:31 07/06/23 22:10 98 F 110 H 145/70 07/06/23 20:00 98.1 F 101 H 24 157/87 07/06/23 19:41 07/06/23 19:23 07/06/23 18:30 120 H 24 171/107 07/06/23 16:00 98.3 F 85 12 140/70 07/06/23 12:00 98.1 F 98 15 156/86 Pulse Ox FiO2 07/07/23 11:25 50 07/07/23 09:55 100 07/07/23 08:35 50 07/07/23 04:47 50 07/07/23 04:00 95 07/07/23 02:00 07/06/23 23:31 80 07/06/23 22:10 100 07/06/23 20:00 100 07/06/23 19:41 100 07/06/23 19:23 100 07/06/23 18:30 79 L 07/06/23 16:00 95 07/06/23 12:00 97 Intake and Output 07/06/23 07/07/23 07/07/23 22:59 06:59 14:59 Other: Voiding Method External Catheter Weight 78 kg No acute distress, oriented, currently on BiPAP, with settings of 12/6 and 50%. No IV fluids.. HEENT examination is grossly unremarkable. Neck supple. Full range of motion. No adenopathy thyromegaly or neck vein distention. Cardiovascular examination reveals regular rhythm rate. S1-S2 normal. No S3 or S4. No discernible murmur noted. Heart rate 95 bpm. Heart sounds are distant. Lungs reveal scattered rhonchi. No wheezes or crackles. Saturations are 100% on BiPAP. Saturations are 90% on 6 L nasal cannula. Abdomen soft bowel sounds are heard. No masses or tenderness. Extremities are intact. No cyanosis clubbing or edema. Skin is without rash or lesion. Neurologic examination is brief but nonfocal. Results - Laboratory Findings CBC and BMP: 07/06/23 13:20 07/06/23 05:50 ABG ABG pH 7.51 (7.35-7.45) H 07/06/23 18:41 ABG pCO2 40 mmHg (35-45) 07/06/23 18:41 ABG pO2 95 mmHg (83-108) 07/06/23 18:41 ABG O2 Saturation 97.5 % (94-97) H 07/06/23 18:41 PT/INR, D-dimer PT 11.5 sec (9.0-12.0) 07/06/23 05:50 INR 1.1 (<1.2) 07/06/23 05:50 Abnormal lab findings: Abnormal Labs 07/06/23 07/06/23 07/06/23 05:49 05:50 05:50 WBC 15.8 H Neutrophils # 14.8 H Lymphocytes # 0.5 L ABG pH ABG HCO3 ABG Total CO2 ABG O2 Saturation Sodium 133 L Potassium 3.4 L Chloride 93 L Glucose 235 H POC Glucose (mg/dL) 220 H Hemoglobin A1c Calcium 8.2 L Total Bilirubin 1.5 H Creatine Kinase 26 L Albumin 3.2 L Vitamin B12 Procalcitonin Ur Specific [place] Urine Protein Urine Glucose (UA) Urine Ketones 07/06/23 07/06/23 07/06/23 13:20 13:20 13:20 WBC 12.3 H Neutrophils # 11.1 H Lymphocytes # 0.7 L ABG pH ABG HCO3 ABG Total CO2 ABG O2 Saturation Sodium Potassium Chloride Glucose POC Glucose (mg/dL) Hemoglobin A1c 8.6 H Calcium Total Bilirubin Creatine Kinase Albumin Vitamin B12 Procalcitonin 0.28 H Ur Specific [place] Urine Protein Urine Glucose (UA) Urine Ketones 07/06/23 07/06/23 07/06/23 13:20 17:55 18:41 WBC Neutrophils # Lymphocytes # ABG pH 7.51 H ABG HCO3 32 H ABG Total CO2 33 H ABG O2 Saturation 97.5 H Sodium Potassium Chloride Glucose POC Glucose (mg/dL) Hemoglobin A1c Calcium Total Bilirubin Creatine Kinase Albumin Vitamin B12 1382.0 H Procalcitonin Ur Specific [place] 1.050 H Urine Protein Trace H Urine Glucose (UA) 4+ H Urine Ketones 1+ H 07/06/23 07/07/23 07/07/23 20:37 06:18 09:49 WBC Neutrophils # Lymphocytes # ABG pH ABG HCO3 ABG Total CO2 ABG O2 Saturation Sodium Potassium Chloride Glucose POC Glucose (mg/dL) 163 H 173 H 163 H Hemoglobin A1c Calcium Total Bilirubin Creatine Kinase Albumin Vitamin B12 Procalcitonin Ur Specific [place] Urine Protein Urine Glucose (UA) Urine Ketones - Diagnostic Findings Chest x-ray: image reviewed Assessment and Plan Assessment: Acute on chronic neurologic symptomatology, rule out new CVA. Abnormal chest x-ray, consistent with either CHF/and/or pneumonia. History of hypertension. History of diabetes mellitus. History of atrial fibrillation. History of hyperlipidemia. History of hypothyroidism. Plan: Plan dated 07/07/2023. The patient's chest x-ray could be consistent with fluid overload/CHF, versus pneumonia. The patient's pro-calcitonin level is a bit elevated, and the patient was previously on Rocephin, but is now on Zosyn, for concerns of aspiration pneumonia. In addition, we ordered an N-terminal proBNP. Labs, x- rays, and medications are reviewed. The patient is stable clinically. Currently, she is on BiPAP, with settings of 12/6, and 50%. An echocardiogram has been ordered. Additional recommendations and suggestions are forthcoming. Prognosis is certainly guarded. Time with Patient: Greater than 30
[2023-07-07 11:55] LABS: Basophils % (A) 0 %; Eosinophils % (A) 0 %; HCT 38.4 % (34.0-46.0); HGB 12.1 gm/dL (11.4-16.0); Hypochromasia Moderate; Lymphocytes # (A) 0.5 k/uL (1.0-4.8); Lymphocytes % (A) 4 %; MCH 28.6 pg (25.0-35.0); MCHC 31.5 g/dL (31.0-37.0); MCV 90.9 fL (80.0-100.0); Mean Platelet Volume 10.4; Monocytes # (A) 0.3 k/uL (0-1.0); Monocytes % (A) 3 %; Neutrophils # (A) 11.3 k/uL (1.3-7.7); Neutrophils % (A) 92 %; Platelet Count 296 k/uL (150-450); RBC 4.23 m/uL (3.80-5.40); RDW 14.6 % (11.5-15.5); WBC 12.3 k/uL (3.8-10.6)
[2023-07-07 11:59] LABS: C Reactive Protein 15.7 mg/dL (<1.0)
[2023-07-07] MEDS: SODIUM CHLORIDE 0.9% 1,000 ML IV SCH (13:04)
[2023-07-07] MEDS: PIPERACILLIN-TAZOBACTAM 3.375 GM in SODIUM CHLORIDE 0.9% 100 ML IVPB SCH ×2 (13:04→20:23)
[2023-07-07 17:00] LABS: Glucose,Whole Blood 126 mg/dL (70-110)
--- NOTE | 2023-07-07 17:04 | P.PN ---
Subjective Progress Note Date: 07/07/23 82-year-old female with a past medical history including previous CVA with right-sided deficits presents emergency department via EMS from a nursing facility for concern for a new stroke. It was reported the patient recently went to her nursing facility yesterday and was speaking it having full conversations around 10 PM which was her last known normal. The patient was a woken at 4:30 this morning and was reportedly minimally responsive, only to painful stimuli. EMS was called and arrival of the patient was responsive to painful stimuli however had slurring of speech and inability to answer any questions. On arrival, the patient was slurring her speech and mumbling without any comprehensible words. The patient denied of any movement in any of her extremities against gravity. The patient was able to provide any further answers any questions. White blood cells 5.8 thousand and slightly neutrophilic Initial serum glucose is 235. Calcium is 8.2. Sodium is 133. Potassium 3.4. AST and ALT is within normal limits. CT of the head is reported as encephalomalacia with left superior frontal gyrus additional hypodensity and extending to the left middle frontal gyrus. Findings likely related to chronic infarction. No signs of acute infarction identified. Consider MRI there is further concern. Small vessel ischemic/degenerative changes. Cerebral and cerebellar atrophy. CT of the head and neck was reported as limited examination given the lack of thin axial imaging of the head. This limits diagnostic accuracy. 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 Consider correlation with neurologic examination. Carotid duplex is reported as bilateral after squatting changes with no signif icant hemodynamic stenosis identified. Objective - Vital Signs Vital signs: Vital Signs Temp 97.2 F L 07/07/23 04:00 Pulse 104 H 07/07/23 04:00 Resp 24 07/07/23 02:00 BP 145/73 07/07/23 04:00 Pulse Ox 95 07/07/23 04:00 FiO2 50 07/07/23 08:35 Intake & Output 07/06/23 07/07/23 07/07/23 18:59 06:59 18:59 Weight 78 kg Other: Voiding Method External Catheter - Exam Head exam: Present: atraumatic, normocephalic, normal inspection Eye exam: Present: normal appearance, PERRL Pupils: Present: normal accommodation Neck exam: Present: normal inspection, full ROM Respiratory exam: Present: normal lung sounds bilaterally Cardiovascular Exam: Present: normal rhythm, tachycardia, normal heart sounds GI/Abdominal exam: Present: soft, normal bowel sounds Extremities exam: Present: normal inspection, other (No movement of any extremity to gravity). Absent: full ROM Neurological exam: Present: altered (ANOx0), motor sensory deficit. Absent: alert, oriented X3, CN II-XII intact Skin exam: Present: warm, dry - Labs CBC & Chem 7: 07/07/23 10:24 07/06/23 05:50 Labs: Abnormal Lab Results - Last 24 Hours (Table) 07/06/23 07/06/23 07/06/23 Range/Units 13:20 13:20 13:20 WBC 12.3 H (3.8-10.6) k/uL Neutrophils # 11.1 H (1.3-7.7) k/uL Lymphocytes # 0.7 L (1.0-4.8) k/uL ABG pH (7.35-7.45) ABG HCO3 (21-25) mmol/L ABG Total CO2 (19-24) mmol/L ABG O2 Saturation (94-97) % POC Glucose (mg/dL) (70-110) mg/dL Hemoglobin A1c 8.6 H (<=6.0) % Vitamin B12 (200.0-944.0) pg/mL Procalcitonin 0.28 H (0.02-0.09) ng/mL Ur Specific [place] (1.001-1.035) Urine Protein (Negative) Urine Glucose (UA) (Negative) Urine Ketones (Negative) 07/06/23 07/06/23 07/06/23 Range/Units 13:20 17:55 18:41 WBC (3.8-10.6) k/uL Neutrophils # (1.3-7.7) k/uL Lymphocytes # (1.0-4.8) k/uL ABG pH 7.51 H (7.35-7.45) ABG HCO3 32 H (21-25) mmol/L ABG Total CO2 33 H (19-24) mmol/L ABG O2 Saturation 97.5 H (94-97) % POC Glucose (mg/dL) (70-110) mg/dL Hemoglobin A1c (<=6.0) % Vitamin B12 1382.0 H (200.0-944.0) pg/mL Procalcitonin (0.02-0.09) ng/mL Ur Specific [place] 1.050 H (1.001-1.035) Urine Protein Trace H (Negative) Urine Glucose (UA) 4+ H (Negative) Urine Ketones 1+ H (Negative) 07/06/23 07/07/23 07/07/23 Range/Units 20:37 06:18 09:49 WBC (3.8-10.6) k/uL Neutrophils # (1.3-7.7) k/uL Lymphocytes # (1.0-4.8) k/uL ABG pH (7.35-7.45) ABG HCO3 (21-25) mmol/L ABG Total CO2 (19-24) mmol/L ABG O2 Saturation (94-97) % POC Glucose (mg/dL) 163 H 173 H 163 H (70-110) mg/dL Hemoglobin A1c (<=6.0) % Vitamin B12 (200.0-944.0) pg/mL Procalcitonin (0.02-0.09) ng/mL Ur Specific [place] (1.001-1.035) Urine Protein (Negative) Urine Glucose (UA) (Negative) Urine Ketones (Negative) Assessment and Plan Assessment: 1. Weakness/episode of unresponsiveness; CVA versus seizure disorder -- CT reveals questionable occlusion of right pericallosal artery just distal to its ostium; examination seems to be limited -- Patient has been evaluated by neurology with following recommendations -- MRI/MRA of the brain; 2-D echo; EEG to rule out seizure disorder -- Lipid profile, TSH, vitamin B12, folate, ammonia, HbA1c ordered - Monitor neuro checks; continue cardiac monitoring - Consult PT/OT/REDUCTION PLANT SUPERVISOR -- keep her on the same dose of Eliquis 2.5mg bid and ASA 81mg daily. But if she does have any acute ischemic stroke then the event focal upon Eliquis or will change aspirin to Plavix. Continue Lipitor 40 mg daily at bedtime for secondary stroke prophylaxis 2. Hypertension; Norvasc 5 mg daily; metoprolol 25 mg twice a day 3. Diabetes mellitus; long-term insulin use; continue home dose of insulin glargine; monitor Accu-Cheks before meals and at bedtime with insulin sliding scale 4. Hyperlipidemia; Lipitor 40 mg by mouth daily at bedtime 5. History of atrial fibrillation; on eliquis and ASA; remains rate controlled on metoprolol. 6. Hypothyroidism; levothyroxin 25 MCG daily DVT prophylaxis; SCDs/systemic anticoagulation CODE STATUS; full code
--- NOTE | 2023-07-07 17:38 | P.PN ---
Subjective Progress Note Date: 07/07/23 Patient initially seen by Dr. Kaushal Aguilera. Please refer to his note for details. Patient is a 82-year-old female with history of multiple strokes, who presented because of unresponsiveness. Patient was found to have new left-sided weakness. EEG was negative for seizures. Stroke workup in process. Patient was already on Eliquis and aspirin prior to arrival to the hospital. Telemetry monitoring showing atrial fibrillation with a heart rate of 90, some PVC. Some of the workup during this hospital visit consisted of: White blood cells 5.8 thousand and slightly neutrophilic Initial serum glucose is 235. Calcium is 8.2. Sodium is 133. Potassium 3.4. AST and ALT is within normal limits. CT of the head is reported as encephalomalacia with left superior frontal gyrus additional hypodensity and extending to the left middle frontal gyrus. Findings likely related to chronic infarction. No signs of acute infarction identified. Consider MRI there is further concern. Small vessel ischemic/degenerative changes. Cerebral and cerebellar atrophy. I personally reviewed the CT of the head and the patient does have old left [place] encephalomalacia. CT of the head and neck was reported as limited examination given the lack of thin axial imaging of the head. This limits diagnostic accuracy. 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 Consider correlation with neurologic examination. [place] of atherosclerotic disease as described in the body of the report. Carotid duplex is reported as bilateral after squatting changes with no significant hemodynamic stenosis identified. Objective - Vital Signs Vital signs: Vital Signs Temp 98.1 F 07/07/23 13:00 Pulse 94 07/07/23 13:00 Resp 16 07/07/23 13:00 BP 148/87 07/07/23 13:00 Pulse Ox 99 07/07/23 13:00 FiO2 50 07/07/23 11:25 Intake & Output 07/06/23 07/07/23 07/07/23 18:59 06:59 18:59 Weight 78 kg 78 kg Other: Voiding Method External Catheter External Catheter - Exam Patient is alert and awake, no distress. Patient has slow mentation. Patient knows it is June and the year is 2022. She knows that she is in [facility] in [facility]. She has mildly slurred speech. On cranial nerve examination, pupils are equal, round and reactive to light, visual vega are full, face is symmetric. Tongue protrudes to the midline. On muscle strength testing, patient has right sided drift without pronation. The strength is (right/left) biceps 4+/4+, triceps 4/4, deltoid 3+4-/3+4-, hip flexion 2-3/2-3, ankle dorsiflexion 5/3+. No ataxia for [id number] testing although she is very slow to perform. She has slow mentation. Sensory to touch is equal. - Labs CBC & Chem 7: 07/08/23 16:53 07/09/23 10:18 Labs: Abnormal Lab Results - Last 24 Hours (Table) 07/06/23 07/06/23 07/06/23 Range/Units 13:20 13:20 13:20 WBC (3.8-10.6) k/uL Neutrophils # (1.3-7.7) k/uL Lymphocytes # (1.0-4.8) k/uL ABG pH (7.35-7.45) ABG HCO3 (21-25) mmol/L ABG Total CO2 (19-24) mmol/L ABG O2 Saturation (94-97) % POC Glucose (mg/dL) (70-110) mg/dL Hemoglobin A1c 8.6 H (<=6.0) % C-Reactive Protein (<1.0) mg/dL Vitamin B12 1382.0 H (200.0-944.0) pg/mL Procalcitonin 0.28 H (0.02-0.09) ng/mL Ur Specific [place] (1.001-1.035) Urine Protein (Negative) Urine Glucose (UA) (Negative) Urine Ketones (Negative) 07/06/23 07/06/23 07/06/23 Range/Units 17:55 18:41 20:37 WBC (3.8-10.6) k/uL Neutrophils # (1.3-7.7) k/uL Lymphocytes # (1.0-4.8) k/uL ABG pH 7.51 H (7.35-7.45) ABG HCO3 32 H (21-25) mmol/L ABG Total CO2 33 H (19-24) mmol/L ABG O2 Saturation 97.5 H (94-97) % POC Glucose (mg/dL) 163 H (70-110) mg/dL Hemoglobin A1c (<=6.0) % C-Reactive Protein (<1.0) mg/dL Vitamin B12 (200.0-944.0) pg/mL Procalcitonin (0.02-0.09) ng/mL Ur Specific [place] 1.050 H (1.001-1.035) Urine Protein Trace H (Negative) Urine Glucose (UA) 4+ H (Negative) Urine Ketones 1+ H (Negative) 07/07/23 07/07/23 07/07/23 Range/Units 06:18 09:49 10:24 WBC 12.3 H (3.8-10.6) k/uL Neutrophils # 11.3 H (1.3-7.7) k/uL Lymphocytes # 0.5 L (1.0-4.8) k/uL ABG pH (7.35-7.45) ABG HCO3 (21-25) mmol/L ABG Total CO2 (19-24) mmol/L ABG O2 Saturation (94-97) % POC Glucose (mg/dL) 173 H 163 H (70-110) mg/dL Hemoglobin A1c (<=6.0) % C-Reactive Protein (<1.0) mg/dL Vitamin B12 (200.0-944.0) pg/mL Procalcitonin (0.02-0.09) ng/mL Ur Specific [place] (1.001-1.035) Urine Protein (Negative) Urine Glucose (UA) (Negative) Urine Ketones (Negative) 07/07/23 07/07/23 07/07/23 Range/Units 10:24 11:31 16:59 WBC (3.8-10.6) k/uL Neutrophils # (1.3-7.7) k/uL Lymphocytes # (1.0-4.8) k/uL ABG pH (7.35-7.45) ABG HCO3 (21-25) mmol/L ABG Total CO2 (19-24) mmol/L ABG O2 Saturation (94-97) % POC Glucose (mg/dL) 168 H 126 H (70-110) mg/dL Hemoglobin A1c (<=6.0) % C-Reactive Protein 15.7 H (<1.0) mg/dL Vitamin B12 (200.0-944.0) pg/mL Procalcitonin (0.02-0.09) ng/mL Ur Specific [place] (1.001-1.035) Urine Protein (Negative) Urine Glucose (UA) (Negative) Urine Ketones (Negative) Assessment and Plan Assessment: This is an 82-year-old woman with history of multiple strokes with residual right lower extremity weakness, atrial fibrillation on eliquis and ASA, episodes of unresponsiveness but had EEGs in the past and was told no seizures and was initially on short course of Keppra but eventually discontinued by her neurologist (Jose Storm) in April 2023 who presented in emergency department because of the episode of unresponsiveness over [place]. Episode of unresponsiveness and on examination has significant left leg weakness--- rule out acute ischemic stroke versus post ictal ?occlusion of right pericallosal artery just distal to its ostium on CTA but examination is limited. History of multiple strokes (left [place] stroke) in the first stroke is in January 2023 and the last one was about 3 weeks ago with residual right lower extremity weakness History of unresponsiveness and had multiple routine EEGs according to family members and it was feltseizures therefore Keppra was discontinued in April 2023 History of atrial fibrillation on eliquis and ASA. Plan: Await MRI of the brain, MRA of the head to rule out any stroke or any occlusion. 2D echo revealed mildly impaired left ventricular systolic function with EF 40- 45%. Thickened mitral valve/mitral valve prolapse with mild to moderate MR. Mildly increased septal and posterior wall thickness. Left atrium is mildly increased in volume. Lipid panel with cholesterol is ordered and pending. EEG revealed mild to moderate encephalopathy. No epileptiform activity was seen. Hemoglobin A1c 8.6. Recommend optimize control of diabetes to target A1c < 7.0 B12 1382, folate 26, TSH 1.[address] Kaushal Aguilera head spoken with the family members (daughters) and they want to hold off antiepileptic use until the workup is done. If MR the brain is negati ve for acute stroke consider possible starting antiepileptic drug since it is possible that her prior EEGs were negative for any seizure discharges due to just not capturing the seizure activity. Also consider a prolonged EEG as an outpatient. Family would like to keep her on the same dose of Eliquis 2.5mg bid and ASA 81mg daily. But if she does have any acute ischemic stroke then Dr. Aguilera re commended to the continue Eliquis and may change aspirin to Plavix. Continue Lipitor 40 mg daily at bedtime for secondary stroke prophylaxis Continue neuro checks Cardiac monitoring PT, OT and SUPPORT REPRESENTATIVE are consulted. Will defer the rest of medical management to the primary team.
[2023-07-07] MEDS: ATORVASTATIN 40 MG TAB PO SCH (20:24)
[2023-07-07 20:34] LABS: Glucose,Whole Blood 140 mg/dL (70-110)
[2023-07-07] MEDS: INSULIN DETEMIR (LEVEMIR) 100 UNIT/ML SYR SQ SCH (22:41)
[2023-07-08] MEDS: PIPERACILLIN-TAZOBACTAM 3.375 GM in SODIUM CHLORIDE 0.9% 100 ML IVPB SCH ×3 (03:45→18:22)
[2023-07-08 06:09] LABS: Glucose,Whole Blood 154 mg/dL (70-110)
[2023-07-08] MEDS: SODIUM CHLORIDE 0.9% 1,000 ML IV SCH (06:43)
[2023-07-08] MEDS: INSULIN ASPART (NovoLOG) 100 UNIT/ML VIAL SQ SCH ×4 (06:43→20:16)
[2023-07-08] MEDS: LEVOTHYROXINE 25 MCG TAB PO SCH (06:43)
[2023-07-08] MEDS: CITALOPRAM HYDROBROMIDE 20 MG TAB PO SCH (08:57)
[2023-07-08] MEDS: ASPIRIN 81 MG PO SCH (08:57)
[2023-07-08] MEDS: MULTIVITAMINS, THERA 1 EACH TAB PO SCH (08:57)
[2023-07-08] MEDS: FLUDROCORTISONE 0.1 MG TAB PO SCH (08:57)
--- NOTE | 2023-07-08 10:37 | P.PN ---
Subjective Progress Note Date: 07/08/23 Principal diagnosis: CHF. Pulmonary consult dated 07/07/2023. 82-year-old female seen in the emergency department, on July 06. She has a history of prior CVA with right-sided deficits, and presents to the emergency department, from a nursing facility, for possible new CVA. The patient was found to be minimally responsive at the senior living, and only responsive to painful stimuli. For that reason, EMS was called, and she was brought to be evaluated. On arrival to the ER, the patient was slurring her words, and mumbling, without any comprehensible words. Brain CT showed evidence of encephalomalacia, within the left superior frontal gyrus with additional hypodensity extending to the left middle frontal gyrus. Findings were likely to reflect more chronic infarction then acute abnormality. Laboratory data includes a white count 12.3, hemoglobin 11.4, hematocrit 35.1, and a normal platelet count. Blood gases show pO2 of 95, pCO2 40, pH is 7.51. Sodium 133, p otassium 3.4, chlorides 93, CO2 29, within normal BUN and creatinine. Pro- calcitonin level was 0.28. TSH was normal. Chest x-ray showed evidence of pulmonary vascular congestion, scattered infiltrates, and bilateral pleural effusions with cardiomegaly. Progress note dated 07/08/2023. 82-year-old female seen yesterday in consultation. The patient was thought to have either pneumonia and/or heart failure. Clinically, she feels better today. She remains on O2 at 6 L, with saturations of 98%. That can be titrated down. She's getting saline at 20 mL an hour. She did not use BiPAP last night. She was on BiPAP yesterday when I saw her. Current labs included glucose 154. Objective - Vital Signs Vital signs: Vital Signs Temp 97.7 F 07/08/23 08:55 Pulse 95 07/08/23 08:55 Resp 18 07/08/23 08:55 BP 150/77 07/08/23 08:55 Pulse Ox 100 07/08/23 08:55 FiO2 50 07/07/23 11:25 Intake & Output 07/07/23 07/08/23 07/08/23 18:59 06:59 18:59 Intake Total 580 Output Total 750 Balance 580 -750 Weight 78 kg 79 kg Intake: Intake, IV Titration 100 Amount Piperacillin-Tazobactam 3 100 .375 gm In Sodium Chloride 0.9% 100 ml @ 25 mls/hr IVPB Q8H [facility] Rx#: [id number] Oral 480 Output: Urine 750 Other: Voiding Method External Catheter External Catheter - Exam No acute distress, oriented, currently on 6 L nasal cannula, with saturations of 98%. HEENT examination is grossly unremarkable. Neck supple. Full range of motion. No adenopathy thyromegaly or neck vein distention. Cardiovascular examination reveals regular rhythm rate. S1-S2 normal. No S3 or S4. No discernible murmur noted. Heart rate 89 bpm. Heart sounds are distant. Lungs reveal scattered rhonchi. No wheezes or crackles. Saturations are 98% on 6 L nasal cannula. Saturations are 90% on 6 L nasal cannula. Abdomen soft bowel sounds are heard. No masses or tenderness. Extremities are intact. No cyanosis clubbing or edema. Skin is without rash or lesion. Neurologic examination is brief but nonfocal. - Labs CBC & Chem 7: 07/07/23 10:24 07/06/23 05:50 Labs: Abnormal Lab Results - Last 24 Hours (Table) 07/07/23 07/07/23 07/07/23 Range/Units 10:24 10:24 10:24 WBC 12.3 H (3.8-10.6) k/uL Neutrophils # 11.3 H (1.3-7.7) k/uL Lymphocytes # 0.5 L (1.0-4.8) k/uL POC Glucose (mg/dL) (70-110) mg/dL C-Reactive Protein 15.7 H (<1.0) mg/dL Procalcitonin 0.30 H (0.02-0.09) ng/mL 07/07/23 07/07/23 07/07/23 Range/Units 11:31 16:59 20:32 WBC (3.8-10.6) k/uL Neutrophils # (1.3-7.7) k/uL Lymphocytes # (1.0-4.8) k/uL POC Glucose (mg/dL) 168 H 126 H 140 H (70-110) mg/dL C-Reactive Protein (<1.0) mg/dL Procalcitonin (0.02-0.09) ng/mL 07/08/23 Range/Units 06:05 WBC (3.8-10.6) k/uL Neutrophils # (1.3-7.7) k/uL Lymphocytes # (1.0-4.8) k/uL POC Glucose (mg/dL) 154 H (70-110) mg/dL C-Reactive Protein (<1.0) mg/dL Procalcitonin (0.02-0.09) ng/mL Assessment and Plan Assessment: Acute on chronic neurologic symptomatology, rule out new CVA. Abnormal chest x-ray, consistent with either CHF and/or pneumonia. History of hypertension. History of diabetes mellitus. History of atrial fibrillation. History of hyperlipidemia. History of hypothyroidism. Plan: Plan dated 07/07/2023. The patient's chest x-ray could be consistent with fluid overload/CHF, versus pneumonia. The patient's pro-calcitonin level is a bit elevated, and the patient was previously on Rocephin, but is now on Zosyn, for concerns of aspiration pneumonia. In addition, we ordered an N-terminal proBNP. Labs, x- rays, and medications are reviewed. The patient is stable clinically. Currently, she is on BiPAP, with settings of 12/6, and 50%. An echocardiogram has been ordered. Additional recommendations and suggestions are forthcoming. Prognosis is certainly guarded. Plan dated 07/08/2023. The patient did not use BiPAP last night. The patient is on 6 L nasal cannula, and saturations are 98%. I told her nurse, that the FiO2 can be titrated down. The patient remains on Zosyn. In addition, the patient is on Lasix. We will continue to follow make recommendations along the way. Prognosis is certainly guarded. Clinically, she appears much more comfortable today than yesterday. Time with Patient: Less than 30
[2023-07-08 11:24] LABS: Glucose,Whole Blood 164 mg/dL (70-110)
[2023-07-08] MEDS ORDERED: ZOLPIDEM 5 MG TAB PO PRN (12:28)
[2023-07-08] MEDS ORDERED: QUEtiapine 25 MG TAB PO PRN (12:28)
[2023-07-08] MEDS: HYDROcodone/APAP 5-325MG 1 EACH TAB PO PRN (12:33)
[2023-07-08 16:44] LABS: Glucose,Whole Blood 149 mg/dL (70-110)
[2023-07-08 17:17] LABS: Basophils % (A) 0 %; Eosinophils # (A) 0.1 k/uL (0-0.7); Eosinophils % (A) 1 %; HCT 37.4 % (34.0-46.0); HGB 12.4 gm/dL (11.4-16.0); Hypochromasia Slight; Lymphocytes # (A) 0.8 k/uL (1.0-4.8); Lymphocytes % (A) 9 %; MCH 29.2 pg (25.0-35.0); MCHC 33.3 g/dL (31.0-37.0); MCV 87.7 fL (80.0-100.0); Mean Platelet Volume 9.8; Monocytes # (A) 0.4 k/uL (0-1.0); Monocytes % (A) 4 %; Neutrophils # (A) 7.5 k/uL (1.3-7.7); Neutrophils % (A) 85 %; Platelet Count 260 k/uL (150-450); RBC 4.27 m/uL (3.80-5.40); WBC 8.9 k/uL (3.8-10.6)
[2023-07-08 20:11] LABS: Glucose,Whole Blood 149 mg/dL (70-110)
--- NOTE | 2023-07-08 20:29 | P.PN ---
Subjective Progress Note Date: 07/08/23 82-year-old female with a past medical history including previous CVA with right-sided deficits presents emergency department via EMS from a nursing facility for concern for a new stroke. It was reported the patient recently went to her nursing facility yesterday and was speaking it having full conversations around 10 PM which was her last known normal. The patient was a woken at 4:30 this morning and was reportedly minimally responsive, only to painful stimuli. EMS was called and arrival of the patient was responsive to painful stimuli however had slurring of speech and inability to answer any questions. On arrival, the patient was slurring her speech and mumbling without any comprehensible words. The patient denied of any movement in any of her extremities against gravity. The patient was able to provide any further answers any questions. White blood cells 5.8 thousand and slightly neutrophilic Initial serum glucose is 235. Calcium is 8.2. Sodium is 133. Potassium 3.4. AST and ALT is within normal limits. CT of the head is reported as encephalomalacia with left superior frontal gyrus additional hypodensity and extending to the left middle frontal gyrus. Findings likely related to chronic infarction. No signs of acute infarction identified. Consider MRI there is further concern. Small vessel ischemic/degenerative changes. Cerebral and cerebellar atrophy. CT of the head and neck was reported as limited examination given the lack of thin axial imaging of the head. This limits diagnostic accuracy. 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 Consider correlation with neurologic examination. Carotid duplex is reported as bilateral after squatting changes with no signif icant hemodynamic stenosis identified. 07/08/2023 The patient is seen and evaluated in room at bedside; more awake this morning; was thought to have either pneumonia and/or heart failure. Clinically, she feels better today. She remains on O2 at 6 L, with saturations of 98%. That can be titrated down. She did not use BiPAP last night. She was on BiPAP yesterday when I saw her. Current labs included glucose 154. The patient remains on Zosyn. In addition, the patient is on Lasix. -- Await MRI of the brain, MRA of the head to rule out any stroke or any occlusion. 2D echo revealed mildly impaired left ventricular systolic function with EF 40- 45%. Thickened mitral valve/mitral valve prolapse with mild to moderate MR. Mildly increased septal and posterior wall thickness. Left atrium is mildly increased in volume. EEG revealed mild to moderate encephalopathy. No epileptiform activity was seen. Neurology on board-- if MR the brain is negative for acute stroke consider possible starting antiepileptic drug since it is possible that her prior EEGs were negative for any seizures or discharges since with are not capturing the episode while they're happening. Also consider a prolonged EEG as an outpatient. Family would like to keep her on the same dose of Eliquis 2.5mg bid and ASA 81mg daily. But if she does have any acute ischemic stroke then the event focal upon Eliquis or will change aspirin to Plavix. Continue Lipitor 40 mg daily at bedtime for secondary stroke prophylaxis Objective - Vital Signs Vital signs: Vital Signs Temp 97.7 F 07/08/23 08:55 Pulse 95 07/08/23 08:55 Resp 18 07/08/23 08:55 BP 150/77 07/08/23 08:55 Pulse Ox 100 07/08/23 08:55 FiO2 50 07/07/23 11:25 Intake & Output 07/07/23 07/08/23 07/08/23 18:59 06:59 18:59 Intake Total 580 Output Total 750 Balance 580 -750 Weight 78 kg 79 kg Intake: Intake, IV Titration 100 Amount Piperacillin-Tazobactam 3 100 .375 gm In Sodium Chloride 0.9% 100 ml @ 25 mls/hr IVPB Q8H [facility] Rx#: [id number] Oral 480 Output: Urine 750 Other: Voiding Method External Catheter External Catheter - Exam Head exam: Present: atraumatic, normocephalic, normal inspection Eye exam: Present: normal appearance, PERRL Pupils: Present: normal accommodation Neck exam: Present: normal inspection, full ROM Respiratory exam: Present: normal lung sounds bilaterally Cardiovascular Exam: Present: normal rhythm, tachycardia, normal heart sounds GI/Abdominal exam: Present: soft, normal bowel sounds Extremities exam: Present: normal inspection, other (No movement of any extr emity to gravity). Absent: full ROM Neurological exam: Present: altered (ANOx0), motor sensory deficit. Absent: alert, oriented X3, CN II-XII intact Skin exam: Present: warm, dry - Labs CBC & Chem 7: 07/08/23 16:53 07/06/23 05:50 Labs: Abnormal Lab Results - Last 24 Hours (Table) 07/07/23 07/07/23 07/07/23 Range/Units 10:24 10:24 10:24 WBC 12.3 H (3.8-10.6) k/uL Neutrophils # 11.3 H (1.3-7.7) k/uL Lymphocytes # 0.5 L (1.0-4.8) k/uL POC Glucose (mg/dL) (70-110) mg/dL C-Reactive Protein 15.7 H (<1.0) mg/dL Procalcitonin 0.30 H (0.02-0.09) ng/mL 07/07/23 07/07/23 07/07/23 Range/Units 11:31 16:59 20:32 WBC (3.8-10.6) k/uL Neutrophils # (1.3-7.7) k/uL Lymphocytes # (1.0-4.8) k/uL POC Glucose (mg/dL) 168 H 126 H 140 H (70-110) mg/dL C-Reactive Protein (<1.0) mg/dL Procalcitonin (0.02-0.09) ng/mL 07/08/23 Range/Units 06:05 WBC (3.8-10.6) k/uL Neutrophils # (1.3-7.7) k/uL Lymphocytes # (1.0-4.8) k/uL POC Glucose (mg/dL) 154 H (70-110) mg/dL C-Reactive Protein (<1.0) mg/dL Procalcitonin (0.02-0.09) ng/mL Assessment and Plan Assessment: 1. Weakness/episode of unresponsiveness; CVA versus seizure disorder -- CT reveals questionable occlusion of right pericallosal artery just distal to its ostium; examination seems to be limited -- Patient has been evaluated by neurology with following recommendations -- MRI/MRA of the brain; 2-D echo; EEG to rule out seizure disorder -- Lipid profile, TSH, vitamin B12, folate, ammonia, HbA1c ordered - Monitor neuro checks; continue cardiac monitoring - Consult PT/OT/HEAD SCREEN WORKER -- keep her on the same dose of Eliquis 2.5mg bid and ASA 81mg daily. But if she does have any acute ischemic stroke then the event focal upon Eliquis or will change aspirin to Plavix. Continue Lipitor 40 mg daily at bedtime for secondary stroke prophylaxis 2. Hypertension; Norvasc 5 mg daily; metoprolol 25 mg twice a day 3. Diabetes mellitus; long-term insulin use; continue home dose of insulin glargine; monitor Accu-Cheks before meals and at bedtime with insulin sliding scale 4. Hyperlipidemia; Lipitor 40 mg by mouth daily at bedtime 5. History of atrial fibrillation; on eliquis and ASA; remains rate controlled on metoprolol. 6. Hypothyroidism; levothyroxin 25 MCG daily DVT prophylaxis; SCDs/systemic anticoagulation CODE STATUS; full code
[2023-07-08] MEDS: ATORVASTATIN 40 MG TAB PO SCH (20:40)
[2023-07-08] MEDS: INSULIN DETEMIR (LEVEMIR) 100 UNIT/ML SYR SQ SCH (21:40)
[2023-07-09 06:07] LABS: Glucose,Whole Blood 136 mg/dL (70-110)
[2023-07-09] MEDS: PIPERACILLIN-TAZOBACTAM 3.375 GM in SODIUM CHLORIDE 0.9% 100 ML IVPB SCH ×3 (06:38→17:46)
[2023-07-09] MEDS: LEVOTHYROXINE 25 MCG TAB PO SCH (06:43)
[2023-07-09] MEDS: INSULIN ASPART (NovoLOG) 100 UNIT/ML VIAL SQ SCH ×4 (06:43→21:46)
[2023-07-09] MEDS: FLUDROCORTISONE 0.1 MG TAB PO SCH (08:20)
[2023-07-09] MEDS: ASPIRIN 81 MG PO SCH (08:20)
[2023-07-09] MEDS: MULTIVITAMINS, THERA 1 EACH TAB PO SCH (08:21)
[2023-07-09] MEDS: CITALOPRAM HYDROBROMIDE 20 MG TAB PO SCH (08:21)
[2023-07-09] MEDS ORDERED: HEPARIN SODIUM,PORCINE 5,000 UNIT/ML 1 ML VIAL SQ SCH (09:45)
[2023-07-09] MEDS: APIXABAN 2.5 MG TABLET PO SCH ×2 (10:34→17:45)
[2023-07-09] MEDS: FAMOTIDINE 20 MG TAB PO SCH (10:34)
[2023-07-09 10:51] LABS: African American GFR (CKD) >90 (>60 ml/min/1.73 sqM); Blood Urea Nitrogen 14 mg/dL (7-17); Calcium 7.8 mg/dL (8.4-10.2); Carbon Dioxide 28 mmol/L (22-30); Glucose 175 mg/dL (74-99); Non-African American GFR(CKD) >90 (>60 ml/min/1.73 sqM)
[2023-07-09 11:01] LABS: Anion Gap 8 mmol/L; Chloride 95 mmol/L (98-107); Sodium 131 mmol/L (137-145)
[2023-07-09 11:06] LABS: Potassium 3.5 mmol/L (3.5-5.1)
[2023-07-09 11:26] LABS: Glucose,Whole Blood 192 mg/dL (70-110)
[2023-07-09] MEDS: SODIUM CHLORIDE 0.9% 1,000 ML IV SCH (12:01)
[2023-07-09] MEDS: FUROSEMIDE 10 MG/ML 2 ML VIAL IV SCH ×2 (12:42→21:45)
--- NOTE | 2023-07-09 13:26 | XR ---
EXAMINATION TYPE: XR chest 2V DATE OF EXAM: 07/09/2023 COMPARISON: 07/06/2023 TECHNIQUE: PA and lateral views submitted. HISTORY: Hypoxia FINDINGS: Interstitial pattern with bilateral consolidation small effusion. Postoperative changes with atrial a ppendage with median sternotomy changes. Atherosclerotic change aorta. No pneumothorax. Diffuse osteo penia. Arthropathy of the shoulder. Surgical clips in epigastrium. IMPRESSION: 1. CHF..
--- NOTE | 2023-07-09 14:39 | P.PN ---
Subjective Progress Note Date: 07/09/23 Patient evaluated today resting in bed no neurological deficits noted. Left sided weakness appears resolved at this time, patient does have chronic right weakness from prior stroke. Echocardiogram completed with an EF noted of 40- 45%. Patient remains on 5 L of oxygen with a oxygen saturation around 90%. Chest x-ray reveals CHF with bilateral consolidation and small effusion. Patient will be given IV Lasix. Pending MRI/MRA and neurology is following this patient closely. Remains on high flow cannula which is being weaned. Labs today show sodium of 131, BUN 14, creatinine 0.44, blood glucose 192. Review of Systems Constitutional: Denied any fatigue denied any fever. Cardio vascular: denied any chest pain, palpitations Gastrointestinal: denied any nausea, vomiting, diarrhea Pulmonary: Reports shortness of breath, cough Neurologic denied any new focal deficits All inpatient medications were reviewed and appropriate changes in these medications as dictated in the interval history and assessment and plan. PHYSICAL EXAMINATION: GENERAL: The patient is alert and oriented x3, not in any acute distress. Well developed, well nourished. HEENT: Pupils are round and equally reacting to light. EOMI. No scleral icterus. No conjunctival pallor. Normocephalic, atraumatic. No pharyngeal erythema. No thyromegaly. CARDIOVASCULAR: S1 and S2 present. No murmurs, rubs, or gallops. PULMONARY: Chest is clear to auscultation, no wheezing or crackles. ABDOMEN: Soft, nontender, nondistended, normoactive bowel sounds. No palpable organomegaly. MUSCULOSKELETAL: No joint swelling or deformity. EXTREMITIES: No cyanosis, clubbing, Bilateral lower extremity edema and right arm peripheral edema NEUROLOGICAL: Gross neurological examination did not reveal any focal deficits. Right UE weakness SKIN: No rashes. Assessment Significant episode of unresponsiveness rule out CVA versus seizure Acute hypoxic respiratory status failure secondary to possibly aspiration pneumonia with underlying CHF Hypertension Acute systolic CHF with EF of 40-45% Hyponatremia hypervolemic Diabetes mellitus insulin-dependent History of stroke with right-sided deficits Hyperlipidemia History of atrial fibrillation rate controlled Hypothyroidism History of colon and uterine cancer GI prophylaxis DVT prophylaxis Full code Plan Continue frequent neuro checks and neurology following closely patient to undergo an MRI/MRA today IV Lasix BID and strict intake and output monitoring Wean oxygen as tolerated Repeat labs in AM Therapy recommending subacute rehab versus ECF The impression and plan of care has been dictated by Janie Thompson Nurse Practitioner as directed. Dr. Vicky MD I have performed a history and physical examination and medical decision making of this patient, discussed the same with the dictator, and agree with the dictators assessment and plan as written, documented as a scribe. Based on total visit time, I have performed more than 50% of this visit. Objective - Vital Signs Vital signs: Vital Signs Temp 96.5 F L 07/09/23 08:00 Pulse 99 07/09/23 08:00 Resp 18 07/09/23 08:00 BP 145/82 07/09/23 08:00 Pulse Ox 90 L 07/09/23 08:00 FiO2 50 07/07/23 11:25 Intake & Output 07/08/23 07/09/23 07/09/23 18:59 06:59 18:59 Intake Total 220 Output Total 300 Balance -80 Weight 78 kg Intake: Intake, IV Titration 100 Amount Piperacillin-Tazobactam 3 100 .375 gm In Sodium Chloride 0.9% 100 ml @ 25 mls/hr IVPB Q8H [facility] Rx#: [id number] Oral 120 Output: Urine 300 Other: Voiding Method External Catheter External Catheter # Voids 1 - Labs CBC & Chem 7: 07/08/23 16:53 07/09/23 10:18 Labs: Abnormal Lab Results - Last 24 Hours (Table) 07/08/23 07/08/23 07/08/23 Range/Units 11:23 16:41 16:53 Lymphocytes # 0.8 L (1.0-4.8) k/uL POC Glucose (mg/dL) 164 H 149 H (70-110) mg/dL 07/08/23 07/09/23 Range/Units 20:07 06:05 Lymphocytes # (1.0-4.8) k/uL POC Glucose (mg/dL) 149 H 136 H (70-110) mg/dL Assessment and Plan Time with Patient: Less than 30
[2023-07-09] MEDS: HYDROcodone/APAP 5-325MG 1 EACH TAB PO PRN ×2 (14:53→21:47)
--- NOTE | 2023-07-09 16:06 | P.PN ---
Subjective Progress Note Date: 07/09/23 82-year-old female seen in the emergency department, on July 06. She has a history of prior CVA with right-sided deficits, and presents to the emergency department, from a nursing facility, for possible new CVA. The patient was found to be minimally responsive at the [facility], and only responsive to painful stimuli. For that reason, EMS was called, and she was brought to be evaluated. On arrival to the ER, the patient was slurring her words, and mumbling, without any comprehensible words. Brain CT showed evidence of encephalomalacia, within the left superior frontal gyrus with additional hypodensity extending to the left middle frontal gyrus. Findings were likely to reflect more chronic infarction then acute abnormality. Laboratory data includes a white count 12.3, hemoglobin 11.4, hematocrit 35.1, and a normal platelet count. Blood gases show pO2 of 95, pCO2 40, pH is 7.51. Sodium 133, potassium 3.4, chlorides 93, CO2 29, within normal BUN and creatinine. Pro- calcitonin level was 0.28. TSH was normal. Chest x-ray showed evidence of pulmonary vascular congestion, scattered infiltrates, and bilateral pleural effusions with cardiomegaly. Progress note dated 07/08/2023. 82-year-old female seen yesterday in consultation. The patient was thought to have either pneumonia and/or heart failure. Clinically, she feels better today. She remains on O2 at 6 L, with saturations of 98%. That can be titrated down. She's getting saline at 20 mL an hour. She did not use BiPAP last night. She was on BiPAP yesterday when I saw her. Current labs included glucose 154. On today's evaluation of 07/09/2023, seeing the patient for a follow-up. The patient is resting comfortably in bed. No signs of any significant respiratory distress. No focal neurological deficits. The patient's left-sided weakness is improved. Cardiac exam shows an ejection fraction of 40-45% and the patient's chest x-ray showed CHF and bilateral small pleural effusions the patient remains on IV Lasix. The patient has no significant complaints otherwise. Blood work from today shows a sodium level of 131, potassium level of 3.5, BUN is 40 with a creatinine of 0.4. Blood sugars at 192. Neuro workup is in progress and the patient is going to undergo an MRI/MRA of the brain. Chest x-ray from today still showing CHF with small pleural effusion and interstitial infiltrates bilaterally and the patient has previous sternotomy. The patient remains on IV Zosyn. The patient remains on Lasix 20 mg IV every 12 hours. The fluid balance over the past 24 hours essentially negative. The patient has no specific complaints at this point in time. Objective - Vital Signs Vital signs: Vital Signs Temp 96.5 F L 07/09/23 08:00 Pulse 99 07/09/23 08:00 Resp 18 07/09/23 08:00 BP 145/82 07/09/23 08:00 Pulse Ox 90 L 07/09/23 08:00 FiO2 50 07/07/23 11:25 Intake & Output 07/08/23 07/09/23 07/09/23 18:59 06:59 18:59 Intake Total 220 10 Output Total 300 Balance -80 10 Weight 78 kg Intake: Intake, IV Titration 100 Amount Piperacillin-Tazobactam 3 100 .375 gm In Sodium Chloride 0.9% 100 ml @ 25 mls/hr IVPB Q8H [facility] Rx#: [id number] Oral 120 10 Output: Urine 300 Other: Voiding Method External Catheter External Catheter External Catheter # Voids 1 - Exam No acute distress, oriented, currently on 2 L of oxygen by nasal cannula HEENT examination is grossly unremarkable. Neck supple. Full range of motion. No adenopathy thyromegaly or neck vein distention. Cardiovascular examination reveals regular rhythm rate. S1-S2 normal. No S3 or S4. No discernible murmur noted. Heart rate 89 bpm. Heart sounds are distant. Lungs reveal scattered rhonchi. No wheezes or crackles. The patient diminished breath sounds bilaterally Abdomen soft bowel sounds are heard. No masses or tenderness. Extremities are intact. No cyanosis clubbing or edema. Skin is without rash or lesion. Neurologically, the patient is awake and alert and the patient does not have any focal neurological deficit. Cranial nerves are essentially intact. - Labs CBC & Chem 7: 07/08/23 16:53 07/09/23 10:18 Labs: Abnormal Lab Results - Last 24 Hours (Table) 07/08/23 07/08/23 07/08/23 Range/Units 11:23 16:41 16:53 Lymphocytes # 0.8 L (1.0-4.8) k/uL POC Glucose (mg/dL) 164 H 149 H (70-110) mg/dL 07/08/23 07/09/23 Range/Units 20:07 06:05 Lymphocytes # (1.0-4.8) k/uL POC Glucose (mg/dL) 149 H 136 H (70-110) mg/dL Assessment and Plan Plan: Acute on chronic neurologic symptomatology, rule out new CVA., Currently inactive and stable and the patient is undergoing further workup including MRI/MRA of the brain. Acute hypoxic respiratory failure and the patient is currently on 2 L of O2 by nasal cannula. Chest x-ray at the time of presentation was more consistent with CHF with lower lobe pulmonary infiltrates. Aspiration pneumonia cannot be completely ruled out. The patient is currently on IV Zosyn. The patient is being dialyzed IV Lasix and the patient is also covered with broad-spectrum antibiotics. Chronic systolic heart failure with an ejection fraction of 40-45% along with some mild mitral regurgitation History of hypertension. History of diabetes mellitus. History of atrial fibrillation. The rate is controlled at this point in time History of hyperlipidemia. History of hypothyroidism. History of colon and uterine cancer Plan: Repeat chest x-ray in a.m. Wean down FiO2 and currently she is on 2 L Continue IV Lasix Continue on IV Zosyn MRI/MRA of the brain Obtain a follow-up chest x-ray We'll continue to follow Full CODE STATUS for now Review blood work in the morning
[2023-07-09 16:31] LABS: Glucose,Whole Blood 160 mg/dL (70-110)
--- NOTE | 2023-07-09 16:36 | MR ---
EXAMINATION TYPE: MR brain wo con DATE OF EXAM: 07/09/2023 2:02 PM COMPARISON: 07/06/2023.. CLINICAL INDICATION:Female, 82 years old with history of dysarthria; TECHNIQUE: Multi planar, multi sequence imaging was performed through the brain including: T1, T2, In version recovery, Diffusion weighted imaging, and gradient echo imaging. No gadolinium was given. FINDINGS: Multiple areas of restricted diffusion are seen within the posterior medial aspect of the r ight frontal lobe with at least a single focus within the left frontal lobe and area surrounded by wh ite matter change likely representing prior injury.. Ventricular dilation proportion to cerebral atro phy.. Scattered foci of high T2 signal intensity are seen within the periventricular white matter. M idline structures show no abnormality. Blooming artifact within the left thalamus compatible with neo or microhemorrhage. The bone marrow signal is within normal limits. Paranasal sinuses and mastoid air cells: No significant paranasal sinus disease. Visualized orbits: Bilaterally aphakia. IMPRESSION: 1. Acute/Subacute CVA involving the right medial frontal lobe possibly the cortex of the medial aspec t of the left frontal lobe which is superimposed on a remote appearing injury of the left frontal lob e. 2. Nonspecific white matter changes, likely secondary to small vessel ischemic disease.
--- NOTE | 2023-07-09 16:59 | MR ---
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 IV Contrast: None Findings: Vertebral arteries: The vertebral arteries are patent. Vertebral arteries are: Codominant. Basilar artery: The basilar artery is intact. The basilar artery bifurcation is normal. Internal Carotid arteries: The cervical, petrous, cavernous and supraclinoid segments are normal. Mil d to moderate narrowing of the right supraclinoid artery. JEAN: Prior mentioned occlusion of the right pericallosal artery is not in the [id number] on this M RA. Hypoplastic A1 segment on the right. ACOM: Present without evidence of aneurysm. MCA: Patent with no evidence of aneurysm. BUNDLES HANGER: Patent with no evidence of aneurysm. PCOM: Hypoplastic bilaterally. IMPRESSION: 1. No significant change from findings on CT. 2. Prior visualization of the occlusion of the right pericallosal artery is not in the [id number] on this MRA. 3. [id number] narrowing of the right supraclinoid internal carotid artery otherwise there is n o aneurysm or significant stenosis.
[2023-07-09 18:19] LABS: NT-Pro-B-Type Natriuretic Pept 803 pg/mL
[2023-07-09 21:27] LABS: Glucose,Whole Blood 199 mg/dL (70-110)
[2023-07-09] MEDS: INSULIN DETEMIR (LEVEMIR) 100 UNIT/ML SYR SQ SCH (21:45)
[2023-07-09] MEDS: ATORVASTATIN 40 MG TAB PO SCH (21:45)
[2023-07-10] MEDS: PIPERACILLIN-TAZOBACTAM 3.375 GM in SODIUM CHLORIDE 0.9% 100 ML IVPB SCH ×3 (04:34→21:20)
[2023-07-10] MEDS: SODIUM CHLORIDE 0.9% 1,000 ML IV SCH (04:34)
[2023-07-10 05:26] LABS: Chol/HDL Ratio 2.87 Ratio; LDL Cholesterol,Calculated 61.7 mg/dL (0.0-131.0)
[2023-07-10 06:05] LABS: Glucose,Whole Blood 183 mg/dL (70-110)
[2023-07-10] MEDS: LEVOTHYROXINE 25 MCG TAB PO SCH (06:35)
[2023-07-10] MEDS: INSULIN ASPART (NovoLOG) 100 UNIT/ML VIAL SQ SCH ×4 (06:35→21:21)
[2023-07-10] MEDS: APIXABAN 2.5 MG TABLET PO SCH ×2 (06:35→21:20)
[2023-07-10] MEDS: FAMOTIDINE 20 MG TAB PO SCH (08:36)
[2023-07-10] MEDS: FLUDROCORTISONE 0.1 MG TAB PO SCH (08:36)
[2023-07-10] MEDS: ASPIRIN 81 MG PO SCH (08:36)
[2023-07-10] MEDS: MULTIVITAMINS, THERA 1 EACH TAB PO SCH (08:36)
[2023-07-10] MEDS: CITALOPRAM HYDROBROMIDE 20 MG TAB PO SCH (08:36)
[2023-07-10] MEDS: FUROSEMIDE 10 MG/ML 2 ML VIAL IV SCH (08:36)
--- NOTE | 2023-07-10 10:42 | P.PN ---
Subjective Progress Note Date: 07/09/23 07/09/2023: Patient was seen for a follow-up. Patient says that she is feeling slightly better. Patient has been eating better, and was able to eat carrots mashed potatoes. Offers no new complaints. 07/07/2023: Patient initially seen by Dr. Kaushal Aguilera. Please refer to his note for details. Patient is a 82-year-old female with history of multiple strokes, who presented because of unresponsiveness. Patient was found to have new left- sided weakness. EEG was negative for seizures. Stroke workup in process. Patient was already on Eliquis and aspirin prior to arrival to the hospital. Telemetry monitoring showing atrial fibrillation with a heart rate of 90, some PVC. Some of the workup during this hospital visit consisted of: White blood cells 5.8 thousand and slightly neutrophilic Initial serum glucose is 235. Calcium is 8.2. Sodium is 133. Potassium 3.4. AST and ALT is within normal limits. CT of the head is reported as encephalomalacia with left superior frontal gyrus additional hypodensity and extending to the left middle frontal gyrus. Findings likely related to chronic infarction. No signs of acute infarction identified. Consider MRI there is further concern. Small vessel ischemic/degenerative changes. Cerebral and cerebellar atrophy. I personally reviewed the CT of the head and the patient does have old left JEAN territory encephalomalacia. CTA of the head and neck was reported as limited examination given the lack of thin axial imaging of the head. This limits diagnostic accuracy. 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 Consider correlation with neurologic examination. [place] of atherosclerotic disease as described in the body of the report. Carotid duplex is reported as bilateral atherosclerotic changes with no significant hemodynamic stenosis identified. Objective - Vital Signs Vital signs: Vital Signs Temp 96.7 F L 07/09/23 15:57 Pulse 112 H 07/09/23 15:57 Resp 18 07/09/23 15:57 BP 133/76 07/09/23 15:57 Pulse Ox 93 L 07/09/23 15:57 FiO2 50 07/07/23 11:25 Intake & Output 07/08/23 07/09/23 07/09/23 18:59 06:59 18:59 Intake Total 220 10 Output Total 300 Balance -80 10 Weight 78 kg Intake: Intake, IV Titration 100 Amount Piperacillin-Tazobactam 3 100 .375 gm In Sodium Chloride 0.9% 100 ml @ 25 mls/hr IVPB Q8H [facility] Rx#: [id number] Oral 120 10 Output: Urine 300 Other: Voiding Method External Catheter External Catheter External Catheter # Voids 1 - Exam Patient is alert and awake, no distress. Patient has slow mentation. Patient knows it is June and the year is 2022. She knows that she is in [facility] in [facility]. She has mildly slurred speech. On cranial nerve examination, pupils are equal, round and reactive to light, visual vega are full, face is symmetric. Tongue protrudes to the midline. On muscle strength testing, patient has right sided drift without pronation. The strength is (right/left) biceps 4+/4+, triceps 4/4, deltoid 3+4-/3+4-, hip flexion 2-3/2-3, ankle dorsiflexion 5/3+. No ataxia for vokfga-li-mldi testing although she is very slow to perform. She has slow mentation. Sensory to touch is equal. - Labs CBC & Chem 7: 07/08/23 16:53 07/09/23 10:18 Labs: Abnormal Lab Results - Last 24 Hours (Table) 07/08/23 07/09/23 07/09/23 Range/Units 20:07 06:05 10:18 Sodium 131 L (137-145) mmol/L Chloride 95 L (98-107) mmol/L Creatinine 0.44 L (0.52-1.04) mg/dL Glucose 175 H (74-99) mg/dL POC Glucose (mg/dL) 149 H 136 H (70-110) mg/dL Calcium 7.8 L (8.4-10.2) mg/dL 07/09/23 07/09/23 Range/Units 11:25 16:30 Sodium (137-145) mmol/L Chloride (98-107) mmol/L Creatinine (0.52-1.04) mg/dL Glucose (74-99) mg/dL POC Glucose (mg/dL) 192 H 160 H (70-110) mg/dL Calcium (8.4-10.2) mg/dL Assessment and Plan Assessment: This is an 82-year-old woman with history of multiple strokes with residual right lower extremity weakness, atrial fibrillation on eliquis and ASA, episodes of unresponsiveness but had EEGs in the past and was told no seizures and was initially on short course of Keppra but eventually discontinued by her neurologist (Jose Storm) in April 2023 who presented in emergency department because of the episode of unresponsiveness over [place]. Acute ischemic stroke involving the right medial frontal lobe in JEAN territory. Also a smaller area of acute ischemia in the left medial frontal lobe anteriorl y. Patient has presented with worsening of left leg weakness. 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 This is likely acute and symptomatic. History of multiple strokes (left JEAN territory stroke) in the first stroke is in January 2023 and the last one was about 3 weeks ago with residual right lower extremity weakness History of unresponsiveness and had multiple routine EEGs according to family members and it was felt seizures therefore Keppra was discontinued in April 2023 History of atrial fibrillation on eliquis and ASA. Plan: MRI of the brain revealed acute/subacute CVA involving the right medial frontal lobe possibly the cortex of the medial aspect of the left frontal lobe which is superimposed on a remote appearing injury of the left frontal lobe. I personally reviewed MRI, agree with the findings. There is evidence of an acute ischemic stroke right medial frontal lobe in JEAN territory. Also smaller area of acute ischemia in the left medial frontal lobe anteriorly. MRA of the head revealed no significant change from findings on the CT. Prior visualization of the occlusion of the right pericallosal artery is not in the field of view on this MRA. Mild to moderate narrowing of the right supraclinoid internal carotid artery. Otherwise there is no aneurysm or significant stenosis. 2D echo revealed mildly impaired left ventricular systolic function with EF 40- 45%. Thickened mitral valve/mitral valve prolapse with mild to moderate MR. Mildly increased septal and posterior wall thickness. Left atrium is mildly increased in volume. Consider DIANNE for recurrent embolic events. Lipid panel cholesterol 129, LDL 61, HDL 44 and triglycerides 112. Continue Lipitor 40 mg daily. EEG revealed mild to moderate encephalopathy. No epileptiform activity was seen. Hemoglobin A1c 8.6. Recommend optimize control of diabetes to target A1c < 7.0 B12 1382, folate 26, TSH 1.[address] Kaushal Aguilera head spoken with the family members (daughters) and they want to hold off antiepileptic use until the workup is done. If MR the brain is negative for acute stroke consider possible starting antiepileptic drug since it is possible that her prior EEGs were negative for any seizure discharges due to just not capturing the seizure activity. Also consider a prolonged EEG as an outpatient. Family would like to keep her on the same dose of Eliquis 2.5mg bid and ASA 81mg daily. But if she does have any acute ischemic stroke then Dr. Aguilera recommended to the continue Eliquis and may change aspirin to Plavix. Continue Lipitor 40 mg daily at bedtime for secondary stroke prophylaxis. Will discuss with primary physician regarding switching from aspirin to Plavix. Continue neuro checks Cardiac monitoring PT, OT and [employer] are consulted. Will defer the rest of medical management to the primary team.
[2023-07-10] MEDS: HYDROcodone/APAP 5-325MG 1 EACH TAB PO PRN (11:37)
[2023-07-10 11:39] LABS: Glucose,Whole Blood 112 mg/dL (70-110)
[2023-07-10 12:09] LABS: African American GFR (CKD) >90 (>60 ml/min/1.73 sqM); Anion Gap 3 mmol/L; Blood Urea Nitrogen 10 mg/dL (7-17); Carbon Dioxide 38 mmol/L (22-30); Chloride 88 mmol/L (98-107); Glucose 106 mg/dL (74-99); Magnesium 1.5 mg/dL (1.6-2.3); Non-African American GFR(CKD) 90 (>60 ml/min/1.73 sqM); Sodium 129 mmol/L (137-145)
[2023-07-10 12:27] LABS: Potassium 2.4 mmol/L (3.5-5.1)
--- NOTE | 2023-07-10 12:37 | P.PN ---
Subjective Progress Note Date: 07/10/23 82-year-old female seen in the emergency department, on July 06. She has a history of prior CVA with right-sided deficits, and presents to the emergency department, from a nursing facility, for possible new CVA. The patient was [facility], and only responsive to painful stimuli. For that reason, EMS was called, and she was brought to be evaluated. On arrival to the ER, the patient was slurring her words, and mumbling, without any comprehensible words. Brain CT showed evidence of encephalomalacia, within the left superior frontal gyrus with additional hypodensity extending to the left middle frontal gyrus. Findings were likely to reflect more chronic infarction then acute abnormality. Laboratory data includes a white count 12.3, hemoglobin 11.4, hematocrit 35.1, and a normal platelet count. Blood gases show pO2 of 95, pCO2 40, pH is 7.51. Sodium 133, potassium 3.4, chlorides 93, CO2 29, within normal BUN and creatinine. Pro- calcitonin level was 0.28. TSH was normal. Chest x-ray showed evidence of pulmonary vascular congestion, scattered infiltrates, and bilateral pleural effusions with cardiomegaly. Progress note dated 07/08/2023. 82-year-old female seen yesterday in consultation. The patient was thought to have either pneumonia and/or heart failure. Clinically, she feels better today. She remains on O2 at 6 L, with saturations of 98%. That can be titrated down. She's getting saline at 20 mL an hour. She did not use BiPAP last night. She was on BiPAP yesterday when I saw her. Current labs included glucose 154. On today's evaluation of 07/09/2023, seeing the patient for a follow-up. The patient is resting comfortably in bed. No signs of any significant respiratory distress. No focal neurological deficits. The patient's left-sided weakness is improved. Cardiac exam shows an ejection fraction of 40-45% and the patient's chest x-ray showed CHF and bilateral small pleural effusions the patient remains on IV Lasix. The patient has no significant complaints otherwise. Blood work from today shows a sodium level of 131, potassium level of 3.5, BUN is 40 with a creatinine of 0.4. Blood sugars at 192. Neuro workup is in progress and the patient is going to undergo an MRI/MRA of the brain. Chest x-ray from today still showing CHF with small pleural effusion and interstitial infiltrates bilaterally and the patient has previous sternotomy. The patient remains on IV Zosyn. The patient remains on Lasix 20 mg IV every 12 hours. The fluid balance over the past 24 hours essentially negative. The patient has no specific complaints at this point in time. 07/10/2023, I'm seeing the patient for a follow-up. The patient has been on oxygen and she remains on 1.5 L nasal cannula with a pulse ox of 93-94%. She has a congested cough. She is quite weak and debilitated. She is afebrile. She remains on broad-spectrum antibiotics and the patient remains on IV Zosyn. She is also receiving Lasix 20 mg IV every 12 hours. Blood work from today shows a sodium level of 129, potassium levels at 2.4 to be replaced, BUN is at 10 with a creatinine of 0.49. Neurologically, the patient is quite debilitated. She is weak. She is responsive. She does have some residual left-sided weakness. Her mentation is also slow. She is on aspirin and anticoagulation without a course regarding her chronic atrial fibrillation. Neurology is still on the case. MRI of the brain was completed yesterday and the patient was found to have an acute/subacute CVA involving the right medial frontal lobe possibly the cortex of the medial aspect of the left frontal lobe which is superimposed remote-appearing injury on the left frontal lobe. There is also nonspecific white matter changes. MRA of the brain showed no significant change and there was some mild to moderate narrowing of the right supraclinoid internal carotid artery otherwise there was no aneurysm. 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 Objective - Vital Signs Vital signs: Vital Signs Temp 97.7 F 07/10/23 08:35 Pulse 104 H 07/10/23 08:35 Resp 18 07/10/23 08:35 BP 116/69 07/10/23 08:35 Pulse Ox 97 07/10/23 09:41 FiO2 50 07/07/23 11:25 Intake & Output 07/09/23 07/10/23 07/10/23 18:59 06:59 18:59 Intake Total 10 Output Total 350 650 425 Balance -849 -651 -413 Weight 79.5 kg Intake: Oral 10 Output: Urine 350 650 425 Other: Voiding Method External Catheter External Catheter External Catheter - Exam No acute distress, oriented, currently on 2 L of oxygen by nasal cannula HEENT examination is grossly unremarkable. Neck supple. Full range of motion. No adenopathy thyromegaly or neck vein distention. Cardiovascular examination reveals regular rhythm rate. S1-S2 normal. No S3 or S4. No discernible murmur noted. Heart rate 89 bpm. Heart sounds are distant. Lungs reveal scattered rhonchi. No wheezes or crackles. The patient diminished breath sounds bilaterally Abdomen soft bowel sounds are heard. No masses or tenderness. Extremities are intact. No cyanosis clubbing or edema. Skin is without rash or lesion. Neurologically, the patient is awake and alert and the patient does not have any focal neurological deficit. Cranial nerves are essentially intact. - Labs CBC & Chem 7: 07/08/23 16:53 07/10/23 10:44 Labs: Abnormal Lab Results - Last 24 Hours (Table) 07/09/23 07/09/23 07/09/23 Range/Units 10:18 11:25 16:30 Sodium 131 L (137-145) mmol/L Chloride 95 L (98-107) mmol/L Creatinine 0.44 L (0.52-1.04) mg/dL Glucose 175 H (74-99) mg/dL POC Glucose (mg/dL) 192 H 160 H (70-110) mg/dL Calcium 7.8 L (8.4-10.2) mg/dL 07/09/23 07/10/23 Range/Units 21:14 06:03 Sodium (137-145) mmol/L Chloride (98-107) mmol/L Creatinine (0.52-1.04) mg/dL Glucose (74-99) mg/dL POC Glucose (mg/dL) 199 H 183 H (70-110) mg/dL Calcium (8.4-10.2) mg/dL Assessment and Plan Plan: Acute on chronic neurologic symptomatology, rule out new CVA., Currently inactive and stable and the patient is undergoing further workup including MRI/MRA of the brain. The patient is currently on aspirin and anticoagulation with Eliquis MRI of the brain showed an acute/subacute CVA involving the right medial frontal lobe possibly the cortex of the medial aspect of the left frontal lobe which is superimposed on a remote-appearing injury of the left frontal lobe. Acute hypoxic respiratory failure and the patient is currently on 2 L of O2 by nasal cannula. Chest x-ray at the time of presentation was more consistent with CHF with lower lobe pulmonary infiltrates. Aspiration pneumonia cannot be c ompletely ruled out. The patient is currently on IV Zosyn. The patient is being dialyzed IV Lasix and the patient is also covered with broad-spectrum antibiotics. Chronic systolic heart failure with an ejection fraction of 40-45% along with some mild mitral regurgitation History of hypertension. History of diabetes mellitus. History of atrial fibrillation. The rate is controlled at this point in time, the patient is currently on anti-coagulation with Eliquis History of hyperlipidemia. History of hypothyroidism. History of colon and uterine cancer Plan: Replace potassium Repeat chest x-ray in a.m., and this will be ordered for tomorrow Wean down FiO2 and currently she is on 1.5 L of Oxymizer nasal cannula Continue IV Lasix Continue on IV Zosyn MRI/MRA of the brain was noted We'll continue to follow Full CODE STATUS for now
[2023-07-10] MEDS ORDERED: Potassium Replacement Protocol 1 EACH MISC MISCELLANE PRN (13:56)
[2023-07-10] MEDS ORDERED: Magnesium Replacement Protocol 1 EACH MISC MISCELLANE PRN (13:58)
[2023-07-10] MEDS: POTASSIUM CHLORIDE 10 MEQ in WATER FOR INJECTION 1 100ML.BAG IVPB SCH ×2 (14:18→15:20)
[2023-07-10] MEDS: MAGNESIUM SULFATE-D5W PMX 1 GM in DEXTROSE/WATER 1 100ML.BAG IVPB SCH ×2 (15:53→17:22)
[2023-07-10 16:30] LABS: Glucose,Whole Blood 178 mg/dL (70-110)
[2023-07-10] MEDS: METOPROLOL SUCCINATE (ER) 25 MG TAB.ER.24H PO SCH (17:22)
--- NOTE | 2023-07-10 19:40 | P.PN ---
Subjective Progress Note Date: 07/10/23 Patient evaluated today resting in bed no neurological deficits noted. Left sided weakness appears resolved at this time, patient does have chronic right weakness from prior stroke. Echocardiogram completed with an EF noted of 40- 45%. Patient remains on 5 L of oxygen with a oxygen saturation around 90%. Chest x-ray reveals CHF with bilateral consolidation and small effusion. Patient will be given IV Lasix. Pending MRI/MRA and neurology is following this patient closely. Remains on high flow cannula which is being weaned. Labs today show sodium of 131, BUN 14, creatinine 0.44, blood glucose 192. 07/10/2023 Patient evaluated today sitting up in bed family at the bedside. Discussed positive MRI findings with daughter which does show acute/subacute CVA right medial frontal lobe possibly the cortex of the medial aspect of the left frontal lobe which is super imposed on a remote appearing injury of the left frontal lobe. Nonspecific white matter changes, likely secondary to small vessel isc hemic change. Patient was discharged from [facility] 1 week ago for acute stroke and at that time pts dtr states LV function was normal with EF of 65%. Reports are requested and cardiology has also been consulted for the decreased EF. 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 We will ask wound care to see. Review of Systems Constitutional: Denied any fatigue denied any fever. Cardio vascular: denied any chest pain, palpitations Gastrointestinal: denied any nausea, vomiting, diarrhea Pulmonary: Reports shortness of breath, cough Neurologic: Continues with diffuse weakness and right greater than left UE weakness. All inpatient medications were reviewed and appropriate changes in these med ications as dictated in the interval history and assessment and plan. PHYSICAL EXAMINATION: GENERAL: The patient is alert and oriented x3, not in any acute distress. Well developed, well nourished. HEENT: Pupils are round and equally reacting to light. EOMI. No scleral icterus. No conjunctival pallor. Normocephalic, atraumatic. No pharyngeal erythema. No thyromegaly. CARDIOVASCULAR: S1 and S2 present. No murmurs, rubs, or gallops. PULMONARY: Chest is clear to auscultation, no wheezing or crackles. ABDOMEN: Soft, nontender, nondistended, normoactive bowel sounds. No palpable organomegaly. MUSCULOSKELETAL: No joint swelling or deformity. EXTREMITIES: No cyanosis, clubbing, Bilateral lower extremity edema and right arm peripheral edema NEUROLOGICAL: Gross neurological examination did not reveal any focal deficits. Right UE weakness and edema Has mild LE weakness as well. SKIN: No rashes. Pressure injury/wound to the coccyx. Assessment Significant episode of unresponsiveness and new left sided weakness MRI positive for acute/subacute CVA right medial frontal lobe. 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 Patient had positive stroke while on aspirin and eliquis combination. IV Lasix BID and strict intake and output monitoring, lasix has been increased to 40 mg Q12 and patient continues with significant peripheral edema. Wean oxygen as tolerated Wound care has been consulted for coccyx wound. Cardiology consultation for the decreased LV systolic function. Reports have been requested from [facility]. Repeat labs in AM Therapy recommending subacute rehab versus ECF The impression and plan of care has been dictated by Janie Thompson, Nurse Practitioner as directed. Dr. Vicky MD I have performed a history and physical examination and medical decision making of this patient, discussed the same with the dictator, and agree with the dictators assessment and plan as written, documented as a scribe. Based on total visit time, I have performed more than 50% of this visit. Objective - Vital Signs Vital signs: Vital Signs Temp 96.9 F L 07/10/23 04:00 Pulse 83 07/10/23 04:00 Resp 18 07/10/23 04:00 BP 145/82 07/10/23 04:00 Pulse Ox 97 07/10/23 09:41 FiO2 50 07/07/23 11:25 Intake & Output 07/09/23 07/10/23 07/10/23 18:59 06:59 18:59 Intake Total 10 Output Total 350 650 Balance -340 -650 Weight 79.5 kg Intake: Oral 10 Output: Urine 350 650 Other: Voiding Method External Catheter External Catheter - Labs CBC & Chem 7: 07/08/23 16:53 07/10/23 10:44 Labs: Abnormal Lab Results - Last 24 Hours (Table) 07/09/23 07/09/23 07/09/23 Range/Units 10:18 11:25 16:30 Sodium 131 L (137-145) mmol/L Chloride 95 L (98-107) mmol/L Creatinine 0.44 L (0.52-1.04) mg/dL Glucose 175 H (74-99) mg/dL POC Glucose (mg/dL) 192 H 160 H (70-110) mg/dL Calcium 7.8 L (8.4-10.2) mg/dL 07/09/23 07/10/23 Range/Units 21:14 06:03 Sodium (137-145) mmol/L Chloride (98-107) mmol/L Creatinine (0.52-1.04) mg/dL Glucose (74-99) mg/dL POC Glucose (mg/dL) 199 H 183 H (70-110) mg/dL Calcium (8.4-10.2) mg/dL Assessment and Plan Time with Patient: Less than 30
[2023-07-10 20:30] LABS: Glucose,Whole Blood 200 mg/dL (70-110)
[2023-07-10] MEDS: ATORVASTATIN 40 MG TAB PO SCH (21:20)
[2023-07-10] MEDS: FUROSEMIDE 10 MG/ML 4 ML VIAL IV SCH (21:21)
[2023-07-11] MEDS: INSULIN DETEMIR (LEVEMIR) 100 UNIT/ML SYR SQ SCH ×2 (00:11→20:02)
[2023-07-11] MEDS: PIPERACILLIN-TAZOBACTAM 3.375 GM in SODIUM CHLORIDE 0.9% 100 ML IVPB SCH ×3 (02:40→20:06)
[2023-07-11 03:56] LABS: Potassium 2.2 mmol/L (3.5-5.1)
[2023-07-11 04:06] LABS: Magnesium 1.8 mg/dL (1.6-2.3)
[2023-07-11] MEDS: POTASSIUM CHLORIDE ER 20 MEQ TAB.ER PO SCH ×6 (04:14→20:10)
[2023-07-11] MEDS: LEVOTHYROXINE 25 MCG TAB PO SCH (04:18)
[2023-07-11 05:51] LABS: Glucose,Whole Blood 158 mg/dL (70-110)
[2023-07-11] MEDS: INSULIN ASPART (NovoLOG) 100 UNIT/ML VIAL SQ SCH ×4 (06:18→20:33)
[2023-07-11] MEDS: APIXABAN 2.5 MG TABLET PO SCH (06:20)
[2023-07-11] MEDS: CLOPIDOGREL 75 MG TAB PO SCH (08:05)
[2023-07-11] MEDS: FLUDROCORTISONE 0.1 MG TAB PO SCH (08:05)
[2023-07-11] MEDS: FAMOTIDINE 20 MG TAB PO SCH (08:05)
[2023-07-11] MEDS: METOPROLOL SUCCINATE (ER) 25 MG TAB.ER.24H PO SCH (08:05)
[2023-07-11] MEDS: FUROSEMIDE 10 MG/ML 4 ML VIAL IV SCH (08:05)
[2023-07-11] MEDS: MULTIVITAMINS, THERA 1 EACH TAB PO SCH (08:05)
[2023-07-11] MEDS: CITALOPRAM HYDROBROMIDE 20 MG TAB PO SCH (08:05)
--- NOTE | 2023-07-11 09:00 | P.PN ---
Subjective Progress Note Date: 07/10/23 07/10/2023: Patient was seen for a follow-up. Patient is laying comfortably in the bed. Offers no new complaints. Denies any headache. 07/09/2023: Patient was seen for a follow-up. Patient says that she is feeling slightly better. Patient has been eating better, and was able to eat carrots mashed potatoes. Offers no new complaints. 07/07/2023: Patient initially seen by Dr. Kaushal Aguilera. Please refer to his note for details. Patient is a 82-year-old female with history of multiple strokes, who presented because of unresponsiveness. Patient was found to have new left- sided weakness. EEG was negative for seizures. Stroke workup in process. Patient was already on Eliquis and aspirin prior to arrival to the hospital. Telemetry monitoring showing atrial fibrillation with a heart rate of 90, some PVC. Some of the workup during this hospital visit consisted of: White blood cells 5.8 thousand and slightly neutrophilic Initial serum glucose is 235. Calcium is 8.2. Sodium is 133. Potassium 3.4. AST and ALT is within normal limits. CT of the head is reported as encephalomalacia with left superior frontal gyrus additional hypodensity and extending to the left middle frontal gyrus. Findings likely related to chronic infarction. No signs of acute infarction identified. Consider MRI there is further concern. Small vessel ischemic/degenerative changes. Cerebral and cerebellar atrophy. I personally reviewed the CT of the head and the patient does have old left JEAN territory encephalomalacia. CTA of the head and neck was reported as limited examination given the lack of thin axial imaging of the head. This limits diagnostic accuracy. 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 Consider correlation with neurologic examination. [place] of atherosclerotic disease as described in the body of the report. Carotid duplex is reported as bilateral atherosclerotic changes with no significant hemodynamic stenosis identified. Objective - Vital Signs Vital signs: Vital Signs Temp 97.7 F 07/10/23 08:35 Pulse 68 07/10/23 15:05 Resp 17 07/10/23 15:05 BP 130/81 07/10/23 15:05 Pulse Ox 91 L 07/10/23 15:05 FiO2 50 07/07/23 11:25 Intake & Output 07/10/23 07/10/23 07/11/23 06:59 18:59 06:59 Intake Total 240 Output Total 650 1125 Balance -650 -885 Weight 79.5 kg Intake: Oral 240 Output: Urine 650 1125 Other: Voiding Method External Catheter External Catheter # Voids 1 - Exam Patient is alert and awake, no distress. Patient has slow mentation. Patient knows it is June and the year is 2022. She knows that she is in [facility] in [facility]. She has mildly slurred speech. On cranial nerve examination, pupils are equal, round and reactive to light, visual vega are full, face is symmetric. Tongue protrudes to the midline. On muscle strength testing, patient has right sided drift without pronation. The strength is (right/left) biceps 4+/4+, triceps 4/4, deltoid 3+4-/3+4-, hip flexion 2-3/2-3, ankle dorsiflexion 5/3+. No ataxia for [id number] testing although she is very slow to perform. She has slow mentation. Sensory to touch is equal. - Labs CBC & Chem 7: 07/08/23 16:53 07/11/23 03:21 Labs: Abnormal Lab Results - Last 24 Hours (Table) 07/09/23 07/10/23 07/10/23 Range/Units 21:14 06:03 10:44 Sodium 129 L (137-145) mmol/L Potassium 2.4 L* (3.5-5.1) mmol/L Chloride 88 L (98-107) mmol/L Carbon Dioxide 38 H (22-30) mmol/L Creatinine 0.49 L (0.52-1.04) mg/dL Glucose 106 H (74-99) mg/dL POC Glucose (mg/dL) 199 H 183 H (70-110) mg/dL Calcium 7.0 L (8.4-10.2) mg/dL Magnesium 1.5 L (1.6-2.3) mg/dL 07/10/23 07/10/23 07/10/23 Range/Units 11:38 16:28 20:29 Sodium (137-145) mmol/L Potassium (3.5-5.1) mmol/L Chloride (98-107) mmol/L Carbon Dioxide (22-30) mmol/L Creatinine (0.52-1.04) mg/dL Glucose (74-99) mg/dL POC Glucose (mg/dL) 112 H 178 H 200 H (70-110) mg/dL Calcium (8.4-10.2) mg/dL Magnesium (1.6-2.3) mg/dL Assessment and Plan Assessment: This is an 82-year-old woman with history of multiple strokes with residual right lower extremity weakness, atrial fibrillation on eliquis and ASA, episodes of unresponsiveness but had EEGs in the past and was told no seizures and was initially on short course of Keppra but eventually discontinued by her neurologist (Jose Storm) in April 2023 who presented in emergency department because of the episode of unresponsiveness over [place]. Acute ischemic stroke involving the right medial frontal lobe in JEAN territory. Also a smaller area of acute ischemia in the left medial frontal lobe anteriorly. Patient has presented with worsening of left leg weakness. 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 This is likely acute and symptomatic. History of multiple strokes (left JEAN territory stroke) in the first stroke is in January 2023 and the last one was about 3 weeks ago with residual right lower extremity weakness History of unresponsiveness and had multiple routine EEGs according to family members and it was felt seizures therefore Keppra was discontinued in April 2023 History of atrial fibrillation on eliquis and ASA. Plan: MRI of the brain revealed acute/subacute CVA involving the right medial frontal lobe possibly the cortex of the medial aspect of the left frontal lobe which is superimposed on a remote appearing injury of the left frontal lobe. I personally reviewed MRI, agree with the findings. There is evidence of an acute ischemic stroke right medial frontal lobe in JEAN territory. Also smaller area of acute ischemia in the left medial frontal lobe anteriorly. MRA of the head revealed no significant change from findings on the CT. Prior visualization of the occlusion of the right pericallosal artery is not in the field of view on this MRA. Mild to moderate narrowing of the right supraclinoid internal carotid artery. Otherwise there is no aneurysm or significant stenosis. 2D echo revealed mildly impaired left ventricular systolic function with EF 40-45%. Thickened mitral valve/mitral valve prolapse with mild to moderate MR. Mildly increased septal and posterior wall thickness. Left atrium is mildly increased in volume. Consider DIANNE for recurrent embolic events. Lipid panel cholesterol 129, LDL 61, HDL 44 and triglycerides 112. Continue Lipitor 40 mg daily. EEG revealed mild to moderate encephalopathy. No epileptiform activity was seen. Hemoglobin A1c 8.6. Recommend optimize control of diabetes to target A1c < 7.0 B12 1382, folate 26, TSH 1.[address] Kaushal Aguilera head spoken with the family members (daughters) and they want to hold off antiepileptic use until the workup is done. If MR the brain is negative for acute stroke consider possible starting antiepileptic drug since it is possible that her prior EEGs were negative for any seizure discharges due to just not capturing the seizure activity. Also consider a prolonged EEG as an outpatient. Family would like to keep her on the same dose of Eliquis 2.5mg bid and ASA 81mg daily. But if she does have any acute ischemic stroke then Dr. Aguilera recommended to the continue Eliquis and may change aspirin to Plavix. Continue Lipitor 40 mg daily at bedtime for secondary stroke prophylaxis. Will discuss with primary physician regarding switching from aspirin to Plavix. Continue neuro checks Cardiac monitoring PT, OT and INTENSIVE CARE NURSE are consulted. Will defer the rest of medical management to the primary team.
[2023-07-11 11:03] LABS: African American GFR (CKD) >90 (>60 ml/min/1.73 sqM); Anion Gap 3 mmol/L; Blood Urea Nitrogen 9 mg/dL (7-17); Calcium 6.8 mg/dL (8.4-10.2); Carbon Dioxide 36 mmol/L (22-30); Chloride 87 mmol/L (98-107); Glucose 116 mg/dL (74-99); Non-African American GFR(CKD) 87 (>60 ml/min/1.73 sqM); Sodium 126 mmol/L (137-145)
[2023-07-11 11:56] LABS: Glucose,Whole Blood 186 mg/dL (70-110)
[2023-07-11] MEDS: HYDROcodone/APAP 5-325MG 1 EACH TAB PO PRN (12:00)
--- NOTE | 2023-07-11 12:56 | P.CRDCN ---
History of Present Illness History of present illness: HISTORY OF PRESENT ILLNESS: This is a 82-year-old female with a past medical history significant for atrial fibrillation, hypertension, hyperlipidemia, hypothyroidism, and CVA with right- sided deficit. Patient follows with a acid splicer at [facility]. We have been as ked to see the patient in consultation for CHF and decreased EF. Patient examined at the bedside. Patient presented to the hospital with a chief complaint of left sided weakness. Patient denies chest pain or pressure. Denies SOB. Vital signs are stable. Apparently, the patient was at [facility] last week for an acute stroke and patient's daughter states she had an echocardiogram performed at that time with an ejection fraction of 65%. * EKG reveals atrial fibrillation with mild RVR. No signs of acute ischemia. * Chest xray on 07/09/2023 reveals congestive heart failure * Laboratory data: WBC 8.9. Hemoglobin 12.4. Platelet count 260. Sodium 126. Potassium 2.2. BUN 9. Creatinine 0.54. ProBNP 803. * Current home cardiac medications include metoprolol tartrate 25 mg twice a day, aspirin 81 mg daily, amlodipine 5 mg daily, atorvastatin 40 mg at night, and Eliquis 2.5mg BID * Most recent echocardiogram obtained revealed ejection fraction 40-45%, thickened mitral valve, mitral valve prolapse with [id number] MR, mild tricuspid regurgitation, and mild aortic regurgitation REVIEW OF SYSTEMS: At the time of my exam: CONSTITUTIONAL: Denies fever or chills. HEENT: Denies blurred vision, vision changes, or eye pain. Denies hemoptysis CARDIOVASCULAR: Denies chest pain. Denies orthopnea. Denies PND. Denies palpitations RESPIRATORY: Denies shortness of breath. GASTROINTESTINAL: Denies abdominal pain. Denies nausea or vomiting. HEMATOLOGIC: Denies bleeding disorders. GENITOURINARY: Denies any blood in urine. SKIN: Denies pruitis. Denies rash. PHYSICAL EXAM: VITAL SIGNS: Reviewed. GENERAL: Well-developed in no acute distress. HEENT: Head is normocephalic. Pupils are equal, round. Sclerae anicteric. Mucous membranes of the mouth are moist. Neck supple. No JVD or thyromegaly LUNGS: Respirations even and unlabored. Lungs essentially clear to auscultation bilaterally. HEART: Regular rate and rhythm. S1 and S2 heard. ABDOMEN: Soft. Nondistended. Nontender. EXTREMITIES: Normal range of motion. No clubbing or cyanosis. Peripheral pulses intact. No lower extremity edema NEUROLOGIC: Awake and alert. Oriented x 3. 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 Aspirin has been discontinued. Increase Eliquis to 5mg BID which is appropriate dosing for her atrial fibrillation for thromboembolic protection Continue telemetry monitoring No plans for cardiac cath at this time secondary to CVA Possible outpatient stress testing and repeat echo in 6-8 weeks Patient may follow up with her primary acid splicer at [facility] post discharge Further recommendations pending patient course Nurse practitioner note has been reviewed by physician. Signing provider agrees with the documented findings, assessment, and plan of care. Dr. Perales's Addendum Patient is noticed to have new cardiomyopathy which is most likely nonischemic stress induced to due CVA. CVA can have wall motion abnormalities involving the apex which this patient has. Would recommend to increase her Eliquis she failed the dose of 2.5 mg. We'll put her on guideline medical therapy and would recommend outpatient stress test. I have personally seen and examined the patient. I have personally performed all the components of medical care documented above including detailed histoy, review of system, physican exam, and formulating the assessment and plan. I have personally reviewed the relevant labs, imaging and other diagnostics. I have discussed this in detail with my FOREST OFFICER who has helped me with this documentation. I have carefully reviewed this document before finalizing. Thank you for letting cardiology team participating in this patient's care. Dr. Maximiliano Perales MD Cardiovascular Disease Past Medical History Past Medical History: Atrial Fibrillation, Cancer, CVA/TIA, Diabetes Mellitus, Hyperlipidemia, Hypertension, Thyroid Disorder Additional Past Medical History / Comment(s): colon cancer, uterine cancer History of Any Multi-Drug Resistant Organisms: None Reported Past Anesthesia/Blood Transfusion Reactions: No Reported Reaction Past Psychological History: No Psychological Hx Reported Smoking Status: Former smoker Medications and Allergies Home Medications Medication Instructions Recorded Confirmed Type Acetaminophen [Tylenol 8 Hour] 650 mg PO Q6H PRN 07/06/23 07/06/23 History Apixaban [Eliquis] 2.5 mg PO BID@0700,1900 07/06/23 07/06/23 History Aspirin 81 mg PO DAILY 07/06/23 07/06/23 History Atorvastatin [Lipitor] 40 mg PO HS@199907/06/23 07/06/23 History Citalopram Hydrobromide [CeleXA] 20 mg PO DAILY 07/06/23 07/06/23 History Fludrocortisone [Florinef] 0.1 mg PO DAILY 07/06/23 07/06/23 History Icy Hot Back External Patch 5% 1 patch TRANSDERM HS 07/06/23 07/06/23 History Insulin Glargine,Hum.rec.anlog 5 units SQ HS@199907/06/23 07/06/23 History [Lantus Solostar Pen] Insulin Lispro [humaLOG Kwikpen] See Protocol SQ ACHS 07/06/23 07/06/23 History Levothyroxine Sodium [Synthroid] 25 mcg PO DAILY@0500 07/06/23 07/06/23 History Metoprolol Tartrate [Lopressor] 25 mg PO BID 07/06/23 07/06/23 History Multivitamins, Thera [Multivitamin 1 tab PO DAILY 07/06/23 07/06/23 History (formulary)] amLODIPine [Norvasc] 5 mg PO DAILY 07/06/23 07/06/23 History Allergies Allergy/AdvReac Type Severity Reaction Status Date / Time Sulfa (Sulfonamide Allergy Unknown Verified 07/06/23 08:03 Antibiotics) Physical Exam Vitals: Vital Signs Temp Pulse Pulse Resp BP Pulse Ox 07/11/23 08:05 97.7 F 88 17 133/68 94 L 07/11/23 06:00 98.1 F 18 94 L 07/11/23 04:00 98.1 F 70 18 118/54 94 L 07/11/23 02:00 75 75 18 07/11/23 00:00 75 18 138/59 93 L 07/10/23 20:00 98.3 F 80 80 18 133/66 91 L 07/10/23 15:05 68 17 130/81 91 L 07/10/23 11:30 60 18 116/75 95 Intake and Output 07/10/23 07/11/23 07/11/23 22:59 06:59 14:59 Intake Total 330 Output Total 750 Balance -420 Intake: Intake, IV Titration 160 Amount Piperacillin-Tazobactam 3 100 .375 gm In Sodium Chloride 0.9% 100 ml @ 25 mls/hr IVPB Q8H [facility] Rx#: [id number] Sodium Chloride 0.9% 1, 60 000 ml @ 20 mls/hr IV . Q24H [facility] Rx#:[id number] Oral 170 Output: Urine 750 Other: Voiding Method External Catheter External Catheter External Catheter # Voids 1 Results 07/12/23 07:21 07/12/23 07:21 Comprehensive Metabolic Panel 07/10/23 07/11/23 Range/Units 10:44 03:21 Sodium 129 L 126 L (137-145) mmol/L Potassium 2.4 L* 2.2 L* (3.5-5.1) mmol/L Chloride 88 L 87 L (98-107) mmol/L Carbon Dioxide 38 H 36 H (22-30) mmol/L BUN 10 9 (7-17) mg/dL Creatinine 0.49 L 0.54 (0.52-1.04) mg/dL Glucose 106 H 116 H (74-99) mg/dL Calcium 7.0 L 6.8 L (8.4-10.2) mg/dL Current Medications Generic Name Dose Route Start Last Admin Trade Name Freq PRN Reason Stop Dose Admin Acetaminophen 650 mg 07/06/23 12:18 07/09/23 17:52 Acetaminophen Tab 325 Mg Tab PO 650 mg Q6H PRN Administration Pain Hydrocodone Bitart/Acetaminophen 1 each 07/06/23 12:48 07/10/23 11:37 Hydrocodone/Apap 5-325mg 1 Each Tab PO 1 each Q6HR PRN Administration Pain Apixaban 2.5 mg 07/09/23 09:34 07/11/23 06:20 Apixaban 2.5 Mg Tablet PO 2.5 mg BID@0700,1900 ANY Administration Protocol Atorvastatin Calcium 40 mg 07/06/23 21:00 07/10/23 21:20 Atorvastatin 40 Mg Tab PO 40 mg HS ANY Administration Citalopram Hydrobromide 20 mg 07/07/23 09:00 07/11/23 08:05 Citalopram Hydrobromide 20 Mg Tab PO 20 mg DAILY ANY Administration Clopidogrel Bisulfate 75 mg 07/11/23 09:00 07/11/23 08:05 Clopidogrel 75 Mg Tab PO 75 mg DAILY ANY Administration Famotidine 20 mg 07/09/23 09:45 07/11/23 08:05 Famotidine 20 Mg Tab PO 20 mg DAILY ANY Administration Fludrocortisone Acetate 0.1 mg 07/07/23 09:00 07/11/23 08:05 Fludrocortisone 0.1 Mg Tab PO 0.1 mg DAILY ANY Administration Furosemide 40 mg 07/10/23 21:00 07/11/23 08:05 Furosemide 10 Mg/Ml 4 Ml Vial IV 40 mg Q12HR ANY Administration Sodium Chloride 1,000 mls @ 20 mls/hr 07/06/23 06:45 07/10/23 04:34 Saline 0.9% IV 20 mls/hr .Q24H ANY Administration Piperacillin Sod/Tazobactam 100 mls @ 25 mls/hr 07/07/23 11:00 07/11/23 02:40 Sod 3.375 gm/ Sodium Chloride IVPB 25 mls/hr Q8H [facility] Administration Protocol Insulin Aspart 0 unit 07/06/23 21:00 07/11/23 06:18 Insulin Aspart (Novolog) 100 Unit/Ml Vial SQ Not Given ACHS [facility] Protocol Insulin Detemir 5 unit 07/06/23 20:00 07/11/23 00:11 Insulin Detemir (Levemir) 100 Unit/Ml Syr SQ 5 unit HS@2000 ANY Administration Levothyroxine Sodium 25 mcg 07/07/23 05:00 07/11/23 04:18 Levothyroxine 25 Mcg Tab PO 25 mcg DAILY@0500 ANY Administration Lisinopril 2.5 mg 07/10/23 16:45 07/11/23 08:05 Lisinopril 2.5 Mg Tab PO 2.5 mg DAILY ANY Administration Metoprolol Succinate 12.5 mg 07/10/23 16:45 07/11/23 08:05 Metoprolol Succinate (Er) 25 Mg Tab.Er.24h PO 12.5 mg DAILY ANY Administration Miscellaneous Information 1 each 07/10/23 13:56 Potassium Replacement Protocol 1 Each Misc MISCELLANE DAILY PRN Per Protocol Protocol Miscellaneous Information 1 each 07/10/23 13:58 Magnesium Replacement Protocol 1 Each Misc MISCELLANE DAILY PRN Per Protocol Protocol Multivitamins 1 each 07/07/23 09:00 07/11/23 08:05 Multivitamins, Thera 1 Each Tab PO 1 each DAILY ANY Administration Potassium Chloride 20 meq 07/11/23 10:15 Potassium Chloride Er 20 Meq Tab.Er PO DAILY ANY Quetiapine Fumarate 25 mg 07/08/23 12:28 Quetiapine 25 Mg Tab PO HS PRN Insomnia Zolpidem Tartrate 5 mg 07/08/23 12:28 07/09/23 21:46 Zolpidem 5 Mg Tab PO 5 mg HS PRN Administration Insomnia Intake and Output 07/10/23 07/11/23 07/11/23 22:59 06:59 14:59 Intake Total 330 Output Total 750 Balance -420 Intake: Intake, IV Titration 160 Amount Piperacillin-Tazobactam 3 100 .375 gm In Sodium Chloride 0.9% 100 ml @ 25 mls/hr IVPB Q8H [facility] Rx#: [id number] Sodium Chloride 0.9% 1, 60 000 ml @ 20 mls/hr IV . Q24H [facility] Rx#:[id number] Oral 170 Output: Urine 750 Other: Voiding Method External Catheter External Catheter External Catheter # Voids 1 07/08/23 16:53 07/11/23 03:21
--- NOTE | 2023-07-11 13:33 | P.CONS ---
History of Present Illness - Reason for Consult Consult date: 07/11/23 wound care - History of Present Illness This is an 82-year-old patient with past medical history significant for atrial fibrillation, CVA, diabetes, hyperlipidemia, hypertension, hyperthyroidism, colon and uterine cancer. She is a former smoker. Patient has a stage I pressure ulcer to the left heel. And a stage II pressure ulcer to the coccyx. Patient has been hospitalized for approximately 1 month and is currently a resident at [facility]. Patient states that there is not been any treatment on the ulcerations. Left heel is a stage I pressure ulcer measuring approximately 1 x 1 x 0.1 cm was blanching and redness noted. Patient has a stage II pressure ulcer to the coccyx measuring approximately 1 x 1 x 0.2 cm a significant amount of ecchymosis noted to the area wound and to the wound bed. There is no granulation noted within the wound beds nonviable tissue is present. Wound edges are attached to the wound base. Review Of Systems: Constitutional: No fever, no chills, no night sweats. No weight change. No weakness, fatigue or lethargy. No daytime sleepiness. Integumentary:reports wounds, no lesions. No rash or pruritus. No unusual bruising. No change in hair or nails. Physical exam: General Appearance: Alert, cooperative, no distress, appears stated age. Skin: See HPI all other Skin color, texture, tugor normal, no rashes or lesions. Neurologic: Alert oriented x3 Assessment: 1. Stage II pressure ulcer coccyx 2. Diabetes with skin ulceration 3. Stage I pressure ulcer left heel Plan: 1. Apply honey gel and sacral border foam to the sacral ulceration. Change Sunday. 2. Apply triad to the left heel continue to use heel protectors. 3. Utilizing air-filled cushion when 17. Turn patient every 2 hours. Increase protein to the patient's diet. Patient would benefit from advance wound care upon discharge. At this time patient would like to see if the extended care facility offers wound care within the facility. Patient for the consultation any questions contact the wound care center DNP note has been reviewed and discussed with Dr. Ochoa and the impression and plan of care has been directed as dictated. Past Medical History Past Medical History: Atrial Fibrillation, Cancer, CVA/TIA, Diabetes Mellitus, Hyperlipidemia, Hypertension, Thyroid Disorder Additional Past Medical History / Comment(s): colon cancer, uterine cancer History of Any Multi-Drug Resistant Organisms: None Reported Past Anesthesia/Blood Transfusion Reactions: No Reported Reaction Past Psychological History: No Psychological Hx Reported Smoking Status: Former smoker Medications and Allergies Home Medications Medication Instructions Recorded Confirmed Type Acetaminophen [Tylenol 8 Hour] 650 mg PO Q6H PRN 07/06/23 07/06/23 History Apixaban [Eliquis] 2.5 mg PO BID@0700,1900 07/06/23 07/06/23 History Aspirin 81 mg PO DAILY 07/06/23 07/06/23 History Atorvastatin [Lipitor] 40 mg PO HS@199907/06/23 07/06/23 History Citalopram Hydrobromide [CeleXA] 20 mg PO DAILY 07/06/23 07/06/23 History Fludrocortisone [Florinef] 0.1 mg PO DAILY 07/06/23 07/06/23 History Icy Hot Back External Patch 5% 1 patch TRANSDERM HS 07/06/23 07/06/23 History Insulin Glargine,Hum.rec.anlog 5 units SQ HS@199907/06/23 07/06/23 History [Lantus Solostar Pen] Insulin Lispro [humaLOG Kwikpen] See Protocol SQ ACHS 07/06/23 07/06/23 History Levothyroxine Sodium [Synthroid] 25 mcg PO DAILY@0500 07/06/23 07/06/23 History Metoprolol Tartrate [Lopressor] 25 mg PO BID 07/06/23 07/06/23 History Multivitamins, Thera [Multivitamin 1 tab PO DAILY 07/06/23 07/06/23 History (formulary)] amLODIPine [Norvasc] 5 mg PO DAILY 07/06/23 07/06/23 History Allergies Allergy/AdvReac Type Severity Reaction Status Date / Time Sulfa (Sulfonamide Allergy Unknown Verified 07/06/23 08:03 Antibiotics) Physical Exam Vitals: Vital Signs Temp Pulse Pulse Resp BP Pulse Ox 07/11/23 08:05 97.7 F 88 17 133/68 94 L 07/11/23 06:00 98.1 F 18 94 L 07/11/23 04:00 98.1 F 70 18 118/54 94 L 07/11/23 02:00 75 75 18 07/11/23 00:00 75 18 138/59 93 L 07/10/23 20:00 98.3 F 80 80 18 133/66 91 L 07/10/23 15:05 68 17 130/81 91 L Intake and Output 07/10/23 07/11/23 07/11/23 22:59 06:59 14:59 Intake Total 330 Output Total 750 Balance -420 Intake: Intake, IV Titration 160 Amount Piperacillin-Tazobactam 3 100 .375 gm In Sodium Chloride 0.9% 100 ml @ 25 mls/hr IVPB Q8H [facility] Rx#: [id number] Sodium Chloride 0.9% 1, 60 000 ml @ 20 mls/hr IV . Q24H [facility] Rx#:[id number] Oral 170 Output: Urine 750 Other: Voiding Method External Catheter External Catheter External Catheter # Voids 1 Results CBC & Chem 7: 07/08/23 16:53 07/11/23 03:21 Labs: Abnormal Lab Results - Last 24 Hours (Table) 07/10/23 07/10/23 07/11/23 Range/Units 16:28 20:29 03:21 Sodium 126 L (137-145) mmol/L Potassium 2.2 L* (3.5-5.1) mmol/L Chloride 87 L (98-107) mmol/L Carbon Dioxide 36 H (22-30) mmol/L Glucose 116 H (74-99) mg/dL POC Glucose (mg/dL) 178 H 200 H (70-110) mg/dL Calcium 6.8 L (8.4-10.2) mg/dL 07/11/23 07/11/23 Range/Units 05:50 11:55 Sodium (137-145) mmol/L Potassium (3.5-5.1) mmol/L Chloride (98-107) mmol/L Carbon Dioxide (22-30) mmol/L Glucose (74-99) mg/dL POC Glucose (mg/dL) 158 H 186 H (70-110) mg/dL Calcium (8.4-10.2) mg/dL Assessment and Plan (1) Pressure injury of coccygeal region, stage 2 Current Visit: Yes Status: Acute Code(s): L89.152 - PRESSURE ULCER OF SACRAL REGION, STAGE 2 SNOMED Code(s): 83109043108905608 (2) Pressure injury of left heel, stage 1 Current Visit: Yes Status: Acute Code(s): L89.621 - PRESSURE ULCER OF LEFT HEEL, STAGE 1 SNOMED Code(s): 85251945879116 (3) Type 2 diabetes mellitus with other skin ulcer Current Visit: Yes Status: Acute Code(s): E11.622 - TYPE 2 DIABETES MELLITUS WITH OTHER SKIN ULCER; L98.499 - NON-PRESSURE CHRONIC ULCER OF SKIN OF SITES W UNSP SEVERITY SNOMED Code(s): 162131964
--- NOTE | 2023-07-11 15:04 | P.PN ---
Subjective Progress Note Date: 07/11/23 Patient evaluated today resting in bed no neurological deficits noted. Left sided weakness appears resolved at this time, patient does have chronic right weakness from prior stroke. Echocardiogram completed with an EF noted of 40- 45%. Patient remains on 5 L of oxygen with a oxygen saturation around 90%. Chest x-ray reveals CHF with bilateral consolidation and small effusion. Patient will be given IV Lasix. Pending MRI/MRA and neurology is following this patient closely. Remains on high flow cannula which is being weaned. Labs today show sodium of 131, BUN 14, creatinine 0.44, blood glucose 192. 07/10/2023 Patient evaluated today sitting up in bed family at the bedside. Discussed positive MRI findings with daughter which does show acute/subacute CVA right medial frontal lobe possibly the cortex of the medial aspect of the left frontal lobe which is super imposed on a remote appearing injury of the left frontal lobe. Nonspecific white matter changes, likely secondary to small vessel isc hemic change. Patient was discharged from [facility] 1 week ago for acute stroke and at that time pts dtr states LV function was normal with EF of 65%. Reports are requested and cardiology has also been consulted for the decreased EF. 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 We will ask wound care to see. 07/11/2023 Is evaluated today resting in bed family at the bedside. She has improved tj pheral edema however her sodium continues to drop on IV Lasix and this will be stopped and nephrology is consulted. Patient also has decreased EF and cardiology was contacted. Discussed with neurology and patient has been transitioned to eliquis 2.5mg twice a day with Plavix 75 mg daily. Wound care has evaluated the patient recommending honey gel and optifoam to the sacral ulceration and to change Sunday as well as tried to left heel and heel protectors. Labs today showing a sodium of 126, potassium 2.2, BUN of 9, creatinine 0.54, magnesium 1.8. A proBNP elevated at 1220. Hemodynamically patient is stable. Review of Systems Constitutional: Denied any fatigue denied any fever. Cardio vascular: denied any chest pain, palpitations Gastrointestinal: denied any nausea, vomiting, diarrhea Pulmonary: Reports shortness of breath, cough Neurologic: Continues with diffuse weakness and right greater than left UE weakness. All inpatient medications were reviewed and appropriate changes in these medications as dictated in the interval history and assessment and plan. PHYSICAL EXAMINATION: GENERAL: The patient is alert and oriented x3, not in any acute distress. Well developed, well nourished. HEENT: Pupils are round and equally reacting to light. EOMI. No scleral icterus. No conjunctival pallor. Normocephalic, atraumatic. No pharyngeal erythema. No thyromegaly. CARDIOVASCULAR: S1 and S2 present. No murmurs, rubs, or gallops. PULMONARY: Chest is clear to auscultation, no wheezing or crackles. ABDOMEN: Soft, nontender, nondistended, normoactive bowel sounds. No palpable organomegaly. MUSCULOSKELETAL: No joint swelling or deformity. EXTREMITIES: No cyanosis, clubbing, Bilateral lower extremity edema and right arm peripheral edema NEUROLOGICAL: Gross neurological examination did not reveal any focal deficits. Right UE weakness and edema Has mild LE weakness as well. SKIN: No rashes. Pressure injury/wound to the coccyx. Assessment Significant episode of unresponsiveness and new left sided weakness MRI positive for acute/subacute CVA right medial frontal lobe. Acute hypoxic respiratory status failure secondary to possibly aspiration pneumonia with underlying CHF Hypertension Acute systolic CHF with EF of 40-45% Hyponatremia worsened from diuresis Hypokalemia from diuresis Diabetes mellitus insulin-dependent History of stroke with right-sided deficits Hyperlipidemia History of atrial fibrillation rate controlled Hypothyroidism History of colon and uterine cancer Chronic pressure injury on coccyx present on admission Stage 1 pressure injury left heel GI prophylaxis DVT prophylaxis Full code Plan Continue frequent neuro checks and neurology following closely patient will be transitioned to eliquis 2.5 BID and plavix 75 mg daily. Patient had positive stroke while on aspirin and eliquis combination. Stop IV lasix. Wean oxygen as tolerated Local wound care to the sacrum and left heel. Cardiology consultation for the decreased LV systolic function. Reports have been requested from [facility]. Repeat labs in AM Therapy recommending subacute rehab versus ECF The impression and plan of care has been dictated by Janie Thompson, Nurse Practitioner as directed. Dr. Vicky MD I have performed a history and physical examination and medical decision making of this patient, discussed the same with the dictator, and agree with the dictators assessment and plan as written, documented as a scribe. Based on total visit time, I have performed more than 50% of this visit. Objective - Vital Signs Vital signs: Vital Signs Temp 98.1 F 07/11/23 06:00 Pulse 70 07/11/23 04:00 Resp 18 07/11/23 06:00 BP 118/54 07/11/23 04:00 Pulse Ox 94 L 07/11/23 06:00 FiO2 50 07/07/23 11:25 Intake & Output 07/10/23 07/11/23 07/11/23 18:59 06:59 18:59 Intake Total 240 330 Output Total 1125 750 Balance -885 -420 Intake: Intake, IV Titration 160 Amount Piperacillin-Tazobactam 3 100 .375 gm In Sodium Chloride 0.9% 100 ml @ 25 mls/hr IVPB Q8H [facility] Rx#: [id number] Sodium Chloride 0.9% 1, 60 000 ml @ 20 mls/hr IV . Q24H [facility] Rx#:[id number] Oral 240 170 Output: Urine 1125 750 Other: Voiding Method External Catheter External Catheter # Voids 1 - Labs CBC & Chem 7: 07/08/23 16:53 07/11/23 03:21 Labs: Abnormal Lab Results - Last 24 Hours (Table) 07/10/23 07/10/23 07/10/23 Range/Units 10:44 11:38 16:28 Sodium 129 L (137-145) mmol/L Potassium 2.4 L* (3.5-5.1) mmol/L Chloride 88 L (98-107) mmol/L Carbon Dioxide 38 H (22-30) mmol/L Creatinine 0.49 L (0.52-1.04) mg/dL Glucose 106 H (74-99) mg/dL POC Glucose (mg/dL) 112 H 178 H (70-110) mg/dL Calcium 7.0 L (8.4-10.2) mg/dL Magnesium 1.5 L (1.6-2.3) mg/dL 07/10/23 07/11/23 07/11/23 Range/Units 20:29 03:21 05:50 Sodium (137-145) mmol/L Potassium 2.2 L* (3.5-5.1) mmol/L Chloride (98-107) mmol/L Carbon Dioxide (22-30) mmol/L Creatinine (0.52-1.04) mg/dL Glucose (74-99) mg/dL POC Glucose (mg/dL) 200 H 158 H (70-110) mg/dL Calcium (8.4-10.2) mg/dL Magnesium (1.6-2.3) mg/dL Assessment and Plan Time with Patient: Less than 30
[2023-07-11] MEDS ORDERED: SODIUM CHLORIDE TAB 1 GM TAB PO STA (15:22)
--- NOTE | 2023-07-11 15:23 | P.NPCON ---
History of Present Illness - Reason for Consult hyponatremia - History of Present Illness Reason for consultation: Hyponatremia History of present illness: Patient is a 82-year-old female seen in renal consultation for hyponatremia. Patient was admitted to the hospital on 07/06/2023. At that time her sodium level was 133. It is progressively dropped and is down to 126 as of this morning. Daughter is present at bedside. Patient is a poor historian. Patient apparently had a recent stroke and was discharged to rehab facility. Patient had right-sided weakness from that stroke. She was sent over due to concern for a new stroke. Patient was found to be minimally responsive and EMS was called. 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 No acute stroke was noted on brain CT. Echocardiogram showed ejection fraction of 40-45% with moderate pulmonary hypertension. Brain MRI showed acute/subacute CVA involving the right medial frontal lobe and possibly the cortex of the medial aspect of the left frontal lobe. She's being followed by neurology. Blood pressure stable. Patient has history of coronary disease and is status post CABG. She also is a diabetic. She does a history of breast cancer but did not require any chemo or radiation going to the daughter. No vomiting or diarrhea. Oral intake is poor. Has been drinking fluids. I don't see any diuretics at home medication list. However patient was receiving IV Lasix this admission and was discontinued as morning. Vital signs are stable. General: No acute distress. HEENT: Head exam is unremarkable. On nasal cannula. LUNGS: No audible rhonchi or wheezes. HEART: Rate and Rhythm are regular. ABDOMEN: Nontender. EXTREMITITES: Trace edema. Past Medical History Past Medical History: Atrial Fibrillation, Cancer, CVA/TIA, Diabetes Mellitus, Hyperlipidemia, Hypertension, Thyroid Disorder Additional Past Medical History / Comment(s): colon cancer, uterine cancer History of Any Multi-Drug Resistant Organisms: None Reported Past Anesthesia/Blood Transfusion Reactions: No Reported Reaction Past Psychological History: No Psychological Hx Reported Smoking Status: Former smoker Medications and Allergies Home Medications Medication Instructions Recorded Confirmed Type Acetaminophen [Tylenol 8 Hour] 650 mg PO Q6H PRN 07/06/23 07/06/23 History Apixaban [Eliquis] 2.5 mg PO BID@0700,1900 07/06/23 07/06/23 History Aspirin 81 mg PO DAILY 07/06/23 07/06/23 History Atorvastatin [Lipitor] 40 mg PO HS@199907/06/23 07/06/23 History Citalopram Hydrobromide [CeleXA] 20 mg PO DAILY 07/06/23 07/06/23 History Fludrocortisone [Florinef] 0.1 mg PO DAILY 07/06/23 07/06/23 History Icy Hot Back External Patch 5% 1 patch TRANSDERM HS 07/06/23 07/06/23 History Insulin Glargine,Hum.rec.anlog 5 units SQ HS@199907/06/23 07/06/23 History [Lantus Solostar Pen] Insulin Lispro [humaLOG Kwikpen] See Protocol SQ [facility] 07/06/23 07/06/23 History Levothyroxine Sodium [Synthroid] 25 mcg PO DAILY@0500 07/06/23 07/06/23 History Metoprolol Tartrate [Lopressor] 25 mg PO BID 07/06/23 07/06/23 History Multivitamins, Thera [Multivitamin 1 tab PO DAILY 07/06/23 07/06/23 History (formulary)] amLODIPine [Norvasc] 5 mg PO DAILY 07/06/23 07/06/23 History Allergies Allergy/AdvReac Type Severity Reaction Status Date / Time Sulfa (Sulfonamide Allergy Unknown Verified 07/06/23 08:03 Antibiotics) Physical Exam Vitals: Vital Signs Temp Pulse Pulse Resp BP Pulse Ox 07/11/23 11:20 81 18 125/70 96 07/11/23 08:05 97.7 F 88 17 133/68 94 L 07/11/23 06:00 98.1 F 18 94 L 07/11/23 04:00 98.1 F 70 18 118/54 94 L 07/11/23 02:00 75 75 18 07/11/23 00:00 75 18 138/59 93 L 07/10/23 20:00 98.3 F 80 80 18 133/66 91 L Intake and Output 07/11/23 07/11/23 07/11/23 06:59 14:59 22:59 Intake Total 330 Output Total 750 1500 Balance -420 -1500 Intake: Intake, IV Titration 160 Amount Piperacillin-Tazobactam 3 100 .375 gm In Sodium Chloride 0.9% 100 ml @ 25 mls/hr IVPB Q8H [facility] Rx#: [id number] Sodium Chloride 0.9% 1, 60 000 ml @ 20 mls/hr IV . Q24H [facility] Rx#:[id number] Oral 170 Output: Urine 750 1500 Other: Voiding Method External Catheter External Catheter # Voids 2 Results - Lab Results Most recent lab results ABG pH 7.51 (7.35-7.45) H 07/06/23 18:41 ABG pCO2 40 mmHg (35-45) 07/06/23 18:41 ABG pO2 95 mmHg (83-108) 07/06/23 18:41 ABG HCO3 32 mmol/L (21-25) H 07/06/23 18:41 ABG O2 Saturation 97.5 % (94-97) H 07/06/23 18:41 Calcium 6.8 mg/dL (8.4-10.2) L 07/11/23 03:21 Magnesium 1.8 mg/dL (1.6-2.3) 07/11/23 03:21 07/08/23 16:53 07/11/23 03:21 Assessment and Plan Plan: Assessment: 1. Hyponatremia. Currently appears euvolemic. Component of poor solute intake. 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 Sodium level CXXVI today. 2. Acute ischemic stroke involving the right medial frontal lobe and left medial frontal lobe. Neurology following. 3. Hypokalemia from poor intake and diuresis. Worsened with Florinef. 4. Hypomagnesemia from diuresis and poor intake. Replaced. Better. 5. Coronary disease status post CABG. 6. Chronic systolic CHF with ejection fraction of 40-45% with moderate pulmonary hypertension. Plan: Lasix discontinue this morning. Add 1200 mL fluid restriction. Sodium chloride tablet 1 dose today. Replace potassium. Check potassium level now. Check serum and urine osmolality and urine sodium level. Check TSH and cortisol level. Thank you for the consultation. I will continue to follow the patient with you during her hospital stay.
[2023-07-11] MEDS: HYDROPHILIC CREAM 180 GM TUBE TOPICAL SCH (15:49)
[2023-07-11] MEDS: SODIUM CHLORIDE 0.9% 1,000 ML IV SCH (15:49)
--- NOTE | 2023-07-11 16:11 | P.PN ---
Subjective Progress Note Date: 07/11/23 82-year-old female seen in the emergency department, on July 06. She has a history of prior CVA with right-sided deficits, and presents to the emergency department, from a nursing facility, for possible new CVA. The patient was found to be minimally responsive at the halfway, and only responsive to painful stimuli. For that reason, EMS was called, and she was brought to be evaluated. On arrival to the ER, the patient was slurring her words, and mumbling, without any comprehensible words. Brain CT showed evidence of encephalomalacia, within the left superior frontal gyrus with additional hypodensity extending to the left middle frontal gyrus. Findings were likely to reflect more chronic infarction then acute abnormality. Laboratory data includes a white count 12.3, hemoglobin 11.4, hematocrit 35.1, and a normal platelet count. Blood gases show pO2 of 95, pCO2 40, pH is 7.51. Sodium 133, potassium 3.4, chlorides 93, CO2 29, within normal BUN and creatinine. Pro- calcitonin level was 0.28. TSH was normal. Chest x-ray showed evidence of pulmonary vascular congestion, scattered infiltrates, and bilateral pleural effusions with cardiomegaly. Progress note dated 07/08/2023. 82-year-old female seen yesterday in consultation. The patient was thought to have either pneumonia and/or heart failure. Clinically, she feels better today. She remains on O2 at 6 L, with saturations of 98%. That can be titrated down. She's getting saline at 20 mL an hour. She did not use BiPAP last night. She was on BiPAP yesterday when I saw her. Current labs included glucose 154. On today's evaluation of 07/09/2023, seeing the patient for a follow-up. The patient is resting comfortably in bed. No signs of any significant respiratory distress. No focal neurological deficits. The patient's left-sided weakness is improved. Cardiac exam shows an ejection fraction of 40-45% and the patient's chest x-ray showed CHF and bilateral small pleural effusions the patient remains on IV Lasix. The patient has no significant complaints otherwise. Blood work from today shows a sodium level of 131, potassium level of 3.5, BUN is 40 with a creatinine of 0.4. Blood sugars at 192. Neuro workup is in progress and the patient is going to undergo an MRI/MRA of the brain. Chest x-ray from today still showing CHF with small pleural effusion and interstitial infiltrates bilaterally and the patient has previous sternotomy. The patient remains on IV Zosyn. The patient remains on Lasix 20 mg IV every 12 hours. The fluid balance over the past 24 hours essentially negative. The patient has no specific complaints at this point in time. 07/10/2023, I'm seeing the patient for a follow-up. The patient has been on oxygen and she remains on 1.5 L nasal cannula with a pulse ox of 93-94%. She has a congested cough. She is quite weak and debilitated. She is afebrile. She remains on broad-spectrum antibiotics and the patient remains on IV Zosyn. She is also receiving Lasix 20 mg IV every 12 hours. Blood work from today shows a sodium level of 129, potassium levels at 2.4 to be replaced, BUN is at 10 with a creatinine of 0.49. Neurologically, the patient is quite debilitated. She is weak. She is responsive. She does have some residual left-sided weakness. Her mentation is also slow. She is on aspirin and anticoagulation without a course regarding her chronic atrial fibrillation. Neurology is still on the case. MRI of the brain was completed yesterday and the patient was found to have an acute/subacute CVA involving the right medial frontal lobe possibly the cortex of the medial aspect of the left frontal lobe which is superimposed remote-appearing injury on the left frontal lobe. There is also nonspecific white matter changes. MRA of the brain showed no significant change and there was some mild to moderate narrowing of the right supraclinoid internal carotid artery otherwise there was no aneurysm. 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 On today's evaluation of 07/11/2023, the patient is on 2 L of oxygen by nasal ca nnula with a pulse ox of 96%. The patient is post CVA with left-sided weakness. The patient is currently on Plavix. The patient is also on anticoagulation with Eliquis 5 mg by mouth twice a day regarding her chronic into fibrillation. No plans for cardiac catheterization per cardiology. Electrolytes are still abnormal and the patient's sodium levels of 126 with a potassium level of 2.2 that needs to be replaced with a BUN of 9 and a creatinine of 0.5 the patient is currently on normal saline at 20 mL an hour. The patient is receiving potassium supplements in addition to potassium replacement. No major change in her condition for now. The patient was seen by nephrology. She is euvolemic. Lasix was discontinued and the patient was placed on fluid restriction and salt tablets. Objective - Vital Signs Vital signs: Vital Signs Temp 97.7 F 07/11/23 08:05 Pulse 81 07/11/23 11:20 Resp 18 07/11/23 11:20 BP 125/70 07/11/23 11:20 Pulse Ox 96 07/11/23 11:20 FiO2 50 07/07/23 11:25 Intake & Output 07/10/23 07/11/23 07/11/23 18:59 06:59 18:59 Intake Total 240 330 Output Total 9940 884 7162 Balance -987 -588 -3672 Intake: Intake, IV Titration 160 Amount Piperacillin-Tazobactam 3 100 .375 gm In Sodium Chloride 0.9% 100 ml @ 25 mls/hr IVPB Q8H ANY Rx#: [id number] Sodium Chloride 0.9% 1, 60 000 ml @ 20 mls/hr IV . Q24H ANY Rx#:[id number] Oral 240 170 Output: Urine 1544 [id number] [id number] Other: Voiding Method External Catheter External Catheter External Catheter # Voids 1 2 - Exam No acute distress, oriented, currently on 2 L of oxygen by nasal cannula HEENT examination is grossly unremarkable. Neck supple. Full range of motion. No adenopathy thyromegaly or neck vein distention. Cardiovascular examination reveals regular rhythm rate. S1-S2 normal. No S3 or S4. No discernible murmur noted. Heart rate 89 bpm. Heart sounds are distant. Lungs reveal scattered rhonchi. No wheezes or crackles. The patient diminished breath sounds bilaterally Abdomen soft bowel sounds are heard. No masses or tenderness. Extremities are intact. No cyanosis clubbing or edema. Skin is without rash or lesion. Neurologically, the patient is awake and alert and the patient does not have any focal neurological deficit. Cranial nerves are essentially intact. - Labs CBC & Chem 7: 07/08/23 16:53 07/11/23 03:21 Labs: Abnormal Lab Results - Last 24 Hours (Table) 07/10/23 07/10/23 07/11/23 Range/Units 16:28 20:29 03:21 Sodium 126 L (137-145) mmol/L Potassium 2.2 L* (3.5-5.1) mmol/L Chloride 87 L (98-107) mmol/L Carbon Dioxide 36 H (22-30) mmol/L Glucose 116 H (74-99) mg/dL POC Glucose (mg/dL) 178 H 200 H (70-110) mg/dL Calcium 6.8 L (8.4-10.2) mg/dL 07/11/23 07/11/23 Range/Units 05:50 11:55 Sodium (137-145) mmol/L Potassium (3.5-5.1) mmol/L Chloride (98-107) mmol/L Carbon Dioxide (22-30) mmol/L Glucose (74-99) mg/dL POC Glucose (mg/dL) 158 H 186 H (70-110) mg/dL Calcium (8.4-10.2) mg/dL Assessment and Plan Plan: Acute on chronic neurologic symptomatology, rule out new CVA., Currently inactive and stable and the patient is undergoing further workup including MRI/MRA of the brain. The patient is currently on aspirin and anticoagulation with Eliquis MRI of the brain showed an acute/subacute CVA involving the right medial frontal lobe possibly the cortex of the medial aspect of the left frontal lobe which is superimposed on a remote-appearing injury of the left frontal lobe. Acute hypoxic respiratory failure and the patient is currently on 2 L of O2 by nasal cannula. Chest x-ray at the time of presentation was more consistent with CHF with lower lobe pulmonary infiltrates. Aspiration pneumonia cannot be completely ruled out. The patient is currently on IV Zosyn. The patient is being dialyzed IV Lasix and the patient is also covered with broad-spectrum antibiotics. Chronic systolic heart failure with an ejection fraction of 40-45% along with some mild mitral regurgitation Acute hyponatremia and hypokalemia, euvolemic History of hypertension. History of diabetes mellitus. History of atrial fibrillation. The rate is controlled at this point in time, the patient is currently on anti-coagulation with Eliquis History of hyperlipidemia. History of hypothyroidism. History of colon and uterine cancer Plan: IV fluids to KVO and stop Lasix Replace potassium Repeat chest x-ray in a.m., and this will be ordered for tomorrow Wean down FiO2 and currently she is on 2 L of Oxymizer nasal cannula Continue on IV Zosyn MRI/MRA of the brain was noted We'll continue to follow Full CODE STATUS for now
[2023-07-11 16:36] LABS: Glucose,Whole Blood 138 mg/dL (70-110)
[2023-07-11 17:30] LABS: Potassium 2.6 mmol/L (3.5-5.1)
[2023-07-11] MEDS: APIXABAN 5 MG TAB PO SCH (20:00)
[2023-07-11] MEDS: ATORVASTATIN 40 MG TAB PO SCH (20:00)
[2023-07-11 20:21] LABS: Glucose,Whole Blood 274 mg/dL (70-110)
[2023-07-11] MEDS ORDERED: POTASSIUM CHLORIDE ER 20 MEQ TAB.ER PO ONE (21:00)
[2023-07-12] MEDS ORDERED: POTASSIUM CHLORIDE 40 MEQ in WATER FOR INJECTION 1 100ML.BAG IVPB STA ×2 (00:26→00:30)
[2023-07-12] MEDS: POTASSIUM CHLORIDE 10 MEQ in WATER FOR INJECTION 1 100ML.BAG IVPB SCH ×4 (00:48→04:12)
[2023-07-12] MEDS: POTASSIUM CHLORIDE ER 20 MEQ TAB.ER PO SCH ×4 (00:49→08:49)
[2023-07-12] MEDS: PIPERACILLIN-TAZOBACTAM 3.375 GM in SODIUM CHLORIDE 0.9% 100 ML IVPB SCH ×3 (02:11→20:17)
[2023-07-12] MEDS: LEVOTHYROXINE 25 MCG TAB PO SCH (04:14)
[2023-07-12] MEDS: INSULIN ASPART (NovoLOG) 100 UNIT/ML VIAL SQ SCH ×4 (06:26→20:21)
[2023-07-12] MEDS: APIXABAN 5 MG TAB PO SCH ×2 (06:29→20:17)
[2023-07-12 06:48] LABS: Glucose,Whole Blood 113 mg/dL (70-110)
[2023-07-12 07:51] LABS: Basophils % (A) 0 %; Eosinophils # (A) 0.1 k/uL (0-0.7); Eosinophils % (A) 1 %; HCT 33.8 % (34.0-46.0); HGB 10.8 gm/dL (11.4-16.0); Hypochromasia Moderate; Lymphocytes # (A) 0.9 k/uL (1.0-4.8); Lymphocytes % (A) 13 %; MCH 28.3 pg (25.0-35.0); MCHC 32.1 g/dL (31.0-37.0); MCV 88.2 fL (80.0-100.0); Mean Platelet Volume 8.9; Monocytes # (A) 0.4 k/uL (0-1.0); Monocytes % (A) 6 %; Neutrophils # (A) 5.4 k/uL (1.3-7.7); Neutrophils % (A) 78 %; Platelet Count 221 k/uL (150-450); RBC 3.83 m/uL (3.80-5.40); RDW 14.9 % (11.5-15.5); WBC 6.9 k/uL (3.8-10.6)
--- NOTE | 2023-07-12 08:28 | XR ---
EXAMINATION TYPE: XR chest 1V DATE OF EXAM: 07/12/2023 COMPARISON: 07/09/2023 HISTORY: Shortness of breath TECHNIQUE: Single frontal view of the chest is obtained. FINDINGS: Interstitial pattern with bilateral consolidation small effusion. Postoperative changes wi th atrial appendage with median sternotomy changes. Atherosclerotic change aorta. No pneumothorax. Di ffuse osteopenia. Arthropathy of the shoulder. Surgical clips in epigastrium. IMPRESSION: Stable findings correlate for CHF favored over pneumonia..
[2023-07-12 08:44] LABS: African American GFR (CKD) >90 (>60 ml/min/1.73 sqM); Anion Gap 2 mmol/L; Blood Urea Nitrogen 6 mg/dL (7-17); Calcium 7.2 mg/dL (8.4-10.2); Carbon Dioxide 33 mmol/L (22-30); Chloride 92 mmol/L (98-107); Glucose 106 mg/dL (74-99); Magnesium 1.7 mg/dL (1.6-2.3); Non-African American GFR(CKD) >90 (>60 ml/min/1.73 sqM); Potassium 3.7 mmol/L (3.5-5.1); Sodium 127 mmol/L (137-145)
[2023-07-12] MEDS: CITALOPRAM HYDROBROMIDE 20 MG TAB PO SCH (08:49)
[2023-07-12] MEDS: CLOPIDOGREL 75 MG TAB PO SCH (08:49)
[2023-07-12] MEDS: FAMOTIDINE 20 MG TAB PO SCH (08:49)
[2023-07-12] MEDS: METOPROLOL SUCCINATE (ER) 25 MG TAB.ER.24H PO SCH (08:49)
[2023-07-12] MEDS: SODIUM CHLORIDE 0.9% 1,000 ML IV SCH (08:50)
[2023-07-12] MEDS: HYDROPHILIC CREAM 180 GM TUBE TOPICAL SCH (08:50)
[2023-07-12] MEDS: MULTIVITAMINS, THERA 1 EACH TAB PO SCH (08:50)
[2023-07-12] MEDS: FLUDROCORTISONE 0.1 MG TAB PO SCH (08:50)
[2023-07-12] MEDS ORDERED: MAGNESIUM SULFATE-D5W PMX 1 GM in DEXTROSE/WATER 1 100ML.BAG IVPB ONE (09:42)
[2023-07-12] MEDS ORDERED: METOPROLOL SUCCINATE (ER) 25 MG TAB.ER.24H PO STA (10:53)
[2023-07-12] MEDS ORDERED: POTASSIUM CHLORIDE ER 20 MEQ TAB.ER PO STA (11:12)
[2023-07-12] MEDS ORDERED: SODIUM CHLORIDE TAB 1 GM TAB PO STA (11:13)
--- NOTE | 2023-07-12 11:14 | P.PN ---
Subjective Patient is seen in follow-up for hyponatremia. Sodium level better. Potassium level also improved. Oral intake poor. Hemodynamically stable. On 2 L nasal cannula. Nonoliguric. Vital signs are stable. General: No acute distress. HEENT: Head exam is unremarkable. LUNGS: No audible rhonchi or wheezes. HEART: Rate and Rhythm are regular. ABDOMEN: Nontender. EXTREMITITES: No edema. Objective - Vital Signs Vital signs: Vital Signs Temp 98.2 F 07/12/23 08:00 Pulse 84 07/12/23 08:00 Resp 18 07/12/23 08:00 BP 155/76 07/12/23 08:00 Pulse Ox 95 07/12/23 08:00 FiO2 50 07/07/23 11:25 Intake & Output 07/11/23 07/12/23 07/12/23 18:59 06:59 18:59 Output Total 1700 750 400 Balance -1700 -750 -400 Output: Urine 1700 750 400 Other: Voiding Method External Catheter External Catheter External Catheter # Voids 2 - Labs CBC & Chem 7: 07/12/23 07:21 07/12/23 07:21 Labs: Abnormal Lab Results - Last 24 Hours (Table) 07/11/23 07/11/23 07/11/23 Range/Units 11:55 15:29 16:34 Hgb (11.4-16.0) gm/dL Hct (34.0-46.0) % Lymphocytes # (1.0-4.8) k/uL Sodium (137-145) mmol/L Potassium 2.6 L* (3.5-5.1) mmol/L Chloride (98-107) mmol/L Carbon Dioxide (22-30) mmol/L BUN (7-17) mg/dL Creatinine (0.52-1.04) mg/dL Glucose (74-99) mg/dL POC Glucose (mg/dL) 186 H 138 H (70-110) mg/dL Osmolality 274 L (280-301) mosm/kg Calcium (8.4-10.2) mg/dL 07/11/23 07/11/23 07/12/23 Range/Units 20:18 23:00 06:21 Hgb (11.4-16.0) gm/dL Hct (34.0-46.0) % Lymphocytes # (1.0-4.8) k/uL Sodium (137-145) mmol/L Potassium 2.7 L* (3.5-5.1) mmol/L Chloride (98-107) mmol/L Carbon Dioxide (22-30) mmol/L BUN (7-17) mg/dL Creatinine (0.52-1.04) mg/dL Glucose (74-99) mg/dL POC Glucose (mg/dL) 274 H 113 H (70-110) mg/dL Osmolality (280-301) mosm/kg Calcium (8.4-10.2) mg/dL 07/12/23 07/12/23 Range/Units 07:21 07:21 Hgb 10.8 L (11.4-16.0) gm/dL Hct 33.8 L (34.0-46.0) % Lymphocytes # 0.9 L (1.0-4.8) k/uL Sodium 127 L (137-145) mmol/L Potassium (3.5-5.1) mmol/L Chloride 92 L (98-107) mmol/L Carbon Dioxide 33 H (22-30) mmol/L BUN 6 L (7-17) mg/dL Creatinine 0.45 L (0.52-1.04) mg/dL Glucose 106 H (74-99) mg/dL POC Glucose (mg/dL) (70-110) mg/dL Osmolality (280-301) mosm/kg Calcium 7.2 L (8.4-10.2) mg/dL Assessment and Plan Plan: Assessment: 1. Hyponatremia. Currently appears euvolemic. Component of poor solute intake. 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 Sodium level 127 today. Urine sodium 81 and urine osmolality 345. TSH normal. Cortisol level not full. 2. Acute ischemic stroke involving the right medial frontal lobe and left medial frontal lobe. Neurology following. 3. Hypokalemia from poor intake and diuresis. Worsened with Florinef. Replaced. Better. 4. Hypomagnesemia from diuresis and poor intake. Improved. 5. Coronary disease status post CABG. 6. Chronic systolic CHF with ejection fraction of 40-45% with moderate pulmonary hypertension. Plan: Maintain fluid restriction. Encouraged oral intake. Repeat sodium chloride tablet 1 dose today. Lasix 20 mg IV once today. Replace potassium. Add oral magnesium oxide.
[2023-07-12 11:52] LABS: Glucose,Whole Blood 101 mg/dL (70-110)
--- NOTE | 2023-07-12 12:40 | P.PN ---
Subjective Progress Note Date: 07/12/23 82-year-old female seen in the emergency department, on July 06. She has a history of prior CVA with right-sided deficits, and presents to the emergency department, from a nursing facility, for possible new CVA. The patient was found to be minimally responsive at the detention, and only responsive to painful stimuli. For that reason, EMS was called, and she was brought to be evaluated. On arrival to the ER, the patient was slurring her words, and mumbling, without any comprehensible words. Brain CT showed evidence of encephalomalacia, within the left superior frontal gyrus with additional hypodensity extending to the left middle frontal gyrus. Findings were likely to reflect more chronic infarction then acute abnormality. Laboratory data includes a white count 12.3, hemoglobin 11.4, hematocrit 35.1, and a normal platelet count. Blood gases show pO2 of 95, pCO2 40, pH is 7.51. Sodium 133, potassium 3.4, chlorides 93, CO2 29, within normal BUN and creatinine. Pro- calcitonin level was 0.28. TSH was normal. Chest x-ray showed evidence of pulmonary vascular congestion, scattered infiltrates, and bilateral pleural effusions with cardiomegaly. Progress note dated 07/08/2023. 82-year-old female seen yesterday in consultation. The patient was thought to have either pneumonia and/or heart failure. Clinically, she feels better today. She remains on O2 at 6 L, with saturations of 98%. That can be titrated down. She's getting saline at 20 mL an hour. She did not use BiPAP last night. She was on BiPAP yesterday when I saw her. Current labs included glucose 154. On today's evaluation of 07/09/2023, seeing the patient for a follow-up. The patient is resting comfortably in bed. No signs of any significant respiratory distress. No focal neurological deficits. The patient's left-sided weakness is improved. Cardiac exam shows an ejection fraction of 40-45% and the patient's chest x-ray showed CHF and bilateral small pleural effusions the patient remains on IV Lasix. The patient has no significant complaints otherwise. Blood work from today shows a sodium level of 131, potassium level of 3.5, BUN is 40 with a creatinine of 0.4. Blood sugars at 192. Neuro workup is in progress and the patient is going to undergo an MRI/MRA of the brain. Chest x-ray from today still showing CHF with small pleural effusion and interstitial infiltrates bilaterally and the patient has previous sternotomy. The patient remains on IV Zosyn. The patient remains on Lasix 20 mg IV every 12 hours. The fluid balance over the past 24 hours essentially negative. The patient has no specific complaints at this point in time. 07/10/2023, I'm seeing the patient for a follow-up. The patient has been on oxygen and she remains on 1.5 L nasal cannula with a pulse ox of 93-94%. She has a congested cough. She is quite weak and debilitated. She is afebrile. She remains on broad-spectrum antibiotics and the patient remains on IV Zosyn. She is also receiving Lasix 20 mg IV every 12 hours. Blood work from today shows a sodium level of 129, potassium levels at 2.4 to be replaced, BUN is at 10 with a creatinine of 0.49. Neurologically, the patient is quite debilitated. She is weak. She is responsive. She does have some residual left-sided weakness. Her mentation is also slow. She is on aspirin and anticoagulation without a course regarding her chronic atrial fibrillation. Neurology is still on the case. MRI of the brain was completed yesterday and the patient was found to have an acute/subacute CVA involving the right medial frontal lobe possibly the cortex of the medial aspect of the left frontal lobe which is superimposed remote-appearing injury on the left frontal lobe. There is also nonspecific white matter changes. MRA of the brain showed no significant change and there was some mild to moderate narrowing of the right supraclinoid internal carotid artery otherwise there was no aneurysm. 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 On today's evaluation of 07/11/2023, the patient is on 2 L of oxygen by nasal ca nnula with a pulse ox of 96%. The patient is post CVA with left-sided weakness. The patient is currently on Plavix. The patient is also on anticoagulation with Eliquis 5 mg by mouth twice a day regarding her chronic into fibrillation. No plans for cardiac catheterization per cardiology. Electrolytes are still abnormal and the patient's sodium levels of 126 with a potassium level of 2.2 that needs to be replaced with a BUN of 9 and a creatinine of 0.5 the patient is currently on normal saline at 20 mL an hour. The patient is receiving potassium supplements in addition to potassium replacement. No major change in her condition for now. The patient was seen by nephrology. She is euvolemic. Lasix was discontinued and the patient was placed on fluid restriction and salt tablets. 07/12/2023, the patient remains on oxygen at 2 L. A repeat chest x-ray was done and showed bibasilar pulmonary infiltrates and effusion consistent with CHF. The patient was on diuretics and diuretics were placed on hold because of hyponatremia. As such, the patient will be given another dose of Lasix today 20 mg IV push. She is still having generalized weakness and the weakness is more so on the right related to her recent CVA. The patient's sodium today is at 127, BUN is at 6 with a creatinine of 0.45 and a potassium levels at 3.7. Bicarb is at 33. The white cell count is 6.9 with a hemoglobin of 10.8. No respiratory distress. No difficulties in swallowing. Her oral intake is quite diminished. She remains significantly debilitated. Objective - Vital Signs Vital signs: Vital Signs Temp 98.2 F 07/12/23 08:00 Pulse 84 07/12/23 08:00 Resp 18 07/12/23 08:00 BP 155/76 07/12/23 08:00 Pulse Ox 95 07/12/23 08:00 FiO2 50 07/07/23 11:25 Intake & Output 07/11/23 07/12/23 07/12/23 18:59 06:59 18:59 Output Total 1700 750 400 Balance -1700 -750 -400 Output: Urine 1700 750 400 Other: Voiding Method External Catheter External Catheter External Catheter # Voids 2 - Exam No acute distress, oriented, currently on 2 L of oxygen by nasal cannula HEENT examination is grossly unremarkable. Neck supple. Full range of motion. No adenopathy thyromegaly or neck vein distention. Cardiovascular examination reveals regular rhythm rate. S1-S2 normal. No S3 or S4. No discernible murmur noted. Heart rate 89 bpm. Heart sounds are distant. Lungs reveal scattered rhonchi. No wheezes or crackles. The patient diminished breath sounds bilaterally Abdomen soft bowel sounds are heard. No masses or tenderness. Extremities are intact. No cyanosis clubbing or edema. Skin is without rash or lesion. Neurologically, the patient is awake and alert and the patient does not have any focal neurological deficit. Cranial nerves are essentially intact. - Labs CBC & Chem 7: 07/12/23 07:21 07/12/23 07:21 Labs: Abnormal Lab Results - Last 24 Hours (Table) 07/11/23 07/11/23 07/11/23 Range/Units 15:29 16:34 20:18 Hgb (11.4-16.0) gm/dL Hct (34.0-46.0) % Lymphocytes # (1.0-4.8) k/uL Sodium (137-145) mmol/L Potassium 2.6 L* (3.5-5.1) mmol/L Chloride (98-107) mmol/L Carbon Dioxide (22-30) mmol/L BUN (7-17) mg/dL Creatinine (0.52-1.04) mg/dL Glucose (74-99) mg/dL POC Glucose (mg/dL) 138 H 274 H (70-110) mg/dL Osmolality 274 L (280-301) mosm/kg Calcium (8.4-10.2) mg/dL 07/11/23 07/12/23 07/12/23 Range/Units 23:00 06:21 07:21 Hgb 10.8 L (11.4-16.0) gm/dL Hct 33.8 L (34.0-46.0) % Lymphocytes # 0.9 L (1.0-4.8) k/uL Sodium (137-145) mmol/L Potassium 2.7 L* (3.5-5.1) mmol/L Chloride (98-107) mmol/L Carbon Dioxide (22-30) mmol/L BUN (7-17) mg/dL Creatinine (0.52-1.04) mg/dL Glucose (74-99) mg/dL POC Glucose (mg/dL) 113 H (70-110) mg/dL Osmolality (280-301) mosm/kg Calcium (8.4-10.2) mg/dL 07/12/23 Range/Units 07:21 Hgb (11.4-16.0) gm/dL Hct (34.0-46.0) % Lymphocytes # (1.0-4.8) k/uL Sodium 127 L (137-145) mmol/L Potassium (3.5-5.1) mmol/L Chloride 92 L (98-107) mmol/L Carbon Dioxide 33 H (22-30) mmol/L BUN 6 L (7-17) mg/dL Creatinine 0.45 L (0.52-1.04) mg/dL Glucose 106 H (74-99) mg/dL POC Glucose (mg/dL) (70-110) mg/dL Osmolality (280-301) mosm/kg Calcium 7.2 L (8.4-10.2) mg/dL Assessment and Plan Plan: Acute on chronic neurologic symptomatology, rule out new CVA., Currently inactive and stable and the patient is undergoing further workup including MRI/MRA of the brain. The patient is currently on aspirin and anticoagulation with Eliquis MRI of the brain showed an acute/subacute CVA involving the right medial frontal lobe possibly the cortex of the medial aspect of the left frontal lobe which is superimposed on a remote-appearing injury of the left frontal lobe. Acute hypoxic respiratory failure and the patient is currently on 2 L of O2 by nasal cannula. Chest x-ray at the time of presentation was more consistent with CHF with lower lobe pulmonary infiltrates. Aspiration pneumonia cannot be completely ruled out. The patient is currently on IV Zosyn. The patient is be ing dialyzed IV Lasix and the patient is also covered with broad-spectrum antibiotics. Chronic systolic heart failure with an ejection fraction of 40-45% along with some mild mitral regurgitation Acute hyponatremia and hypokalemia, euvolemic History of hypertension. History of diabetes mellitus. History of atrial fibrillation. The rate is controlled at this point in time, the patient is currently on anti-coagulation with Eliquis History of hyperlipidemia. History of hypothyroidism. History of colon and uterine cancer Plan: Give the patient does of Lasix 20 mg IV IV monitor urine output Monitor sodium Repeat chest x-ray from today was noted and is consistent with some fluid ove rload and CHF and small bilateral pleural effusions Wean down FiO2 and currently she is on 2 L of Oxymizer nasal cannula Continue on IV Zosyn MRI/MRA of the brain was noted We'll continue to follow Full CODE STATUS for now
[2023-07-12] MEDS: HYDROcodone/APAP 5-325MG 1 EACH TAB PO PRN (13:22)
[2023-07-12] MEDS: MAGNESIUM OXIDE 400 MG TAB PO SCH ×2 (13:23→20:17)
--- NOTE | 2023-07-12 13:29 | P.PN ---
Subjective Progress Note Date: 07/12/23 Patient evaluated today resting in bed no neurological deficits noted. Left sided weakness appears resolved at this time, patient does have chronic right weakness from prior stroke. Echocardiogram completed with an EF noted of 40- 45%. Patient remains on 5 L of oxygen with a oxygen saturation around 90%. Chest x-ray reveals CHF with bilateral consolidation and small effusion. Patient will be given IV Lasix. Pending MRI/MRA and neurology is following this patient closely. Remains on high flow cannula which is being weaned. Labs today show sodium of 131, BUN 14, creatinine 0.44, blood glucose 192. 07/10/2023 Patient evaluated today sitting up in bed family at the bedside. Discussed positive MRI findings with daughter which does show acute/subacute CVA right medial frontal lobe possibly the cortex of the medial aspect of the left frontal lobe which is super imposed on a remote appearing injury of the left frontal lobe. Nonspecific white matter changes, likely secondary to small vessel isc hemic change. Patient was [place] [facility] [place] ago for acute stroke and at that time pts dtr states LV function was normal with EF of 65%. Reports are requested and cardiology has also been consulted for the decreased EF. 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 We will ask wound care to see. 07/11/2023 Is evaluated today resting in bed family at the bedside. She has improved tj pheral edema however her sodium continues to drop on IV Lasix and this will be stopped and nephrology is consulted. Patient also has decreased EF and cardiology was contacted. Discussed with neurology and patient has been transitioned to eliquis 2.5mg twice a day with Plavix 75 mg daily. Wound care has evaluated the patient recommending honey gel and optifoam to the sacral ulceration and to change Sunday as well as tried to left heel and heel protectors. Labs today showing a sodium of 126, potassium 2.2, BUN of 9, creatinine 0.54, magnesium 1.8. A proBNP elevated at 1220. Hemodynamically patient is stable. 07/12/2023 Patient evaluated today resting in bed she continues with diffuse weakness and poor oral intake. IV Lasix was stopped due to the low sodium nephrology was consulted and patient was given a dose of oral sodium bicarbonate. Patient appears to still be in CHF and was given a one-time dose of IV Lasix today. Cardiology was consult for the cardiomyopathy recommending outpatient follow-up in 6-8 weeks for possible stress test. Eliquis has been increased to 5 mg twice a day. Review of Systems Constitutional: Denied any fatigue denied any fever. Cardio vascular: denied any chest pain, palpitations Gastrointestinal: denied any nausea, vomiting, diarrhea Pulmonary: Reports shortness of breath, cough Neurologic: Continues with diffuse weakness and right greater than left UE weakness. All inpatient medications were reviewed and appropriate changes in these medications as dictated in the interval history and assessment and plan. PHYSICAL EXAMINATION: GENERAL: The patient is alert and oriented x3, not in any acute distress. Well developed, well nourished. HEENT: Pupils are round and equally reacting to light. EOMI. No scleral icterus. No conjunctival pallor. Normocephalic, atraumatic. No pharyngeal erythema. No thyromegaly. CARDIOVASCULAR: S1 and S2 present. No murmurs, rubs, or gallops. PULMONARY: Chest is clear to auscultation, no wheezing or crackles. ABDOMEN: Soft, nontender, nondistended, normoactive bowel sounds. No palpable organomegaly. MUSCULOSKELETAL: No joint swelling or deformity. EXTREMITIES: No cyanosis, clubbing, Bilateral lower extremity edema and right arm peripheral edema NEUROLOGICAL: Gross neurological examination did not reveal any focal deficits. Right UE weakness and edema Has mild LE weakness as well. SKIN: No rashes. Pressure injury/wound to the coccyx. Assessment Significant episode of unresponsiveness and new left sided weakness MRI positive for acute/subacute CVA right medial frontal lobe. 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 Cardiology consultation for the decreased LV systolic function recommending outpatient follow up 6 to 8 weeks for stress test. Repeat labs in AM Therapy recommending subacute rehab versus ECF The impression and plan of care has been dictated by Janie Thompson Nurse Practitioner as directed. Dr. Vicky MD I have performed a history and physical examination and medical decision making of this patient, discussed the same with the dictator, and agree with the dictators assessment and plan as written, documented as a scribe. Based on total visit time, I have performed more than 50% of this visit. Objective - Vital Signs Vital signs: Vital Signs Temp 98.2 F 07/12/23 08:00 Pulse 84 07/12/23 08:00 Resp 18 07/12/23 08:00 BP 155/76 07/12/23 08:00 Pulse Ox 95 07/12/23 08:00 FiO2 50 07/07/23 11:25 Intake & Output 07/11/23 07/12/23 07/12/23 18:59 06:59 18:59 Output Total 1700 750 400 Balance -1700 -750 -400 Output: Urine 1700 750 400 Other: Voiding Method External Catheter External Catheter External Catheter # Voids 2 - Labs CBC & Chem 7: 07/12/23 07:21 07/12/23 07:21 Labs: Abnormal Lab Results - Last 24 Hours (Table) 07/11/23 07/11/23 07/11/23 Range/Units 15:29 16:34 20:18 Hgb (11.4-16.0) gm/dL Hct (34.0-46.0) % Lymphocytes # (1.0-4.8) k/uL Sodium (137-145) mmol/L Potassium 2.6 L* (3.5-5.1) mmol/L Chloride (98-107) mmol/L Carbon Dioxide (22-30) mmol/L BUN (7-17) mg/dL Creatinine (0.52-1.04) mg/dL Glucose (74-99) mg/dL POC Glucose (mg/dL) 138 H 274 H (70-110) mg/dL Osmolality 274 L (280-301) mosm/kg Calcium (8.4-10.2) mg/dL 07/11/23 07/12/23 07/12/23 Range/Units 23:00 06:21 07:21 Hgb 10.8 L (11.4-16.0) gm/dL Hct 33.8 L (34.0-46.0) % Lymphocytes # 0.9 L (1.0-4.8) k/uL Sodium (137-145) mmol/L Potassium 2.7 L* (3.5-5.1) mmol/L Chloride (98-107) mmol/L Carbon Dioxide (22-30) mmol/L BUN (7-17) mg/dL Creatinine (0.52-1.04) mg/dL Glucose (74-99) mg/dL POC Glucose (mg/dL) 113 H (70-110) mg/dL Osmolality (280-301) mosm/kg Calcium (8.4-10.2) mg/dL 07/12/23 Range/Units 07:21 Hgb (11.4-16.0) gm/dL Hct (34.0-46.0) % Lymphocytes # (1.0-4.8) k/uL Sodium 127 L (137-145) mmol/L Potassium (3.5-5.1) mmol/L Chloride 92 L (98-107) mmol/L Carbon Dioxide 33 H (22-30) mmol/L BUN 6 L (7-17) mg/dL Creatinine 0.45 L (0.52-1.04) mg/dL Glucose 106 H (74-99) mg/dL POC Glucose (mg/dL) (70-110) mg/dL Osmolality (280-301) mosm/kg Calcium 7.2 L (8.4-10.2) mg/dL Assessment and Plan Time with Patient: Less than 30
--- NOTE | 2023-07-12 13:42 | P.PN ---
Subjective HISTORY OF PRESENT ILLNESS: This is a 82-year-old female with a past medical history significant for atrial fibrillation, hypertension, hyperlipidemia, hypothyroidism, and CVA with right- sided deficit. Patient follows with a rotary saw operator at [place]. We have been asked to see the patient in consultation for CHF and decreased EF. Patient examined at the bedside. Patient presented to the hospital with a chief complaint of left sided weakness. Patient denies chest pain or pressure. Denies SOB. Vital signs are stable. Apparently, the patient was at [facility] [place] an acute stroke and patient's daughter states she had an echocardiogram performed at that time with an ejection fraction of 65%. * EKG reveals atrial fibrillation with mild RVR. No signs of acute ischemia. * Chest xray on 07/09/2023 reveals congestive heart failure * Laboratory data: WBC 8.9. Hemoglobin 12.4. Platelet count 260. Sodium 126. Potassium 2.2. BUN 9. Creatinine 0.54. ProBNP 803. * Current home cardiac medications include metoprolol tartrate 25 mg twice a day, aspirin 81 mg daily, amlodipine 5 mg daily, atorvastatin 40 mg at night, and Eliquis 2.5mg BID * Most recent echocardiogram obtained revealed ejection fraction 40-45%, thickened mitral valve, mitral valve prolapse with [id number] MR, mild tricuspid regurgitation, and mild aortic regurgitation Dr. Perales's Addendum Patient is noticed to have new cardiomyopathy which is most likely nonischemic stress induced to due CVA. CVA can have wall motion abnormalities involving the apex which this patient has. Would recommend to increase her Eliquis she failed the dose of 2.5 mg. We'll put her on guideline medical therapy and would rec ommend outpatient stress test. 07/12/2023 Patient examined this morning at the bedside. Patient denies chest pain or pressure. Denies SOB. Vital signs are stable. PHYSICAL EXAM: VITAL SIGNS: Reviewed. GENERAL: Well-developed in no acute distress. HEENT: Head is normocephalic. Pupils are equal, round. Sclerae anicteric. Mucous membranes of the mouth are moist. Neck supple. No JVD or thyromegaly LUNGS: Respirations even and unlabored. Lungs essentially clear to auscultation bilaterally. HEART: Regular rate and rhythm. S1 and S2 heard. ABDOMEN: Soft. Nondistended. Nontender. EXTREMITIES: Normal range of motion. No clubbing or cyanosis. Peripheral pulses intact. No lower extremity edema NEUROLOGIC: Awake and alert. Oriented x 3. 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 Aspirin has been discontinued. Continue Eliquis to 5mg BID which is appropriate dosing for her atrial fibrillation for thromboembolic protection Increase metoprolol succinate to 25mg daily Continue telemetry monitoring No plans for cardiac cath at this time secondary to CVA Possible outpatient stress testing and repeat echo in 6-8 weeks Patient may follow up with her primary rotary saw operator at [place] post discharge Patient is stable for discharge from a cardiac standpoint Nurse practitioner note has been reviewed by physician. Signing provider agrees with the documented findings, assessment, and plan of care. Objective - Vital Signs Vital signs: Vital Signs Temp 98.2 F 07/12/23 08:00 Pulse 84 07/12/23 08:00 Resp 18 07/12/23 08:00 BP 155/76 07/12/23 08:00 Pulse Ox 95 07/12/23 08:00 FiO2 50 07/07/23 11:25 Intake & Output 07/11/23 07/12/23 07/12/23 18:59 06:59 18:59 Output Total 1700 750 400 Balance -1700 -750 -400 Output: Urine 1700 750 400 Other: Voiding Method External Catheter External Catheter External Catheter # Voids 2 - Labs CBC & Chem 7: 07/12/23 07:21 07/12/23 07:21 Labs: Abnormal Lab Results - Last 24 Hours (Table) 07/11/23 07/11/23 07/11/23 Range/Units 15:29 16:34 20:18 Hgb (11.4-16.0) gm/dL Hct (34.0-46.0) % Lymphocytes # (1.0-4.8) k/uL Sodium (137-145) mmol/L Potassium 2.6 L* (3.5-5.1) mmol/L Chloride (98-107) mmol/L Carbon Dioxide (22-30) mmol/L BUN (7-17) mg/dL Creatinine (0.52-1.04) mg/dL Glucose (74-99) mg/dL POC Glucose (mg/dL) 138 H 274 H (70-110) mg/dL Osmolality 274 L (280-301) mosm/kg Calcium (8.4-10.2) mg/dL 07/11/23 07/12/23 07/12/23 Range/Units 23:00 06:21 07:21 Hgb 10.8 L (11.4-16.0) gm/dL Hct 33.8 L (34.0-46.0) % Lymphocytes # 0.9 L (1.0-4.8) k/uL Sodium (137-145) mmol/L Potassium 2.7 L* (3.5-5.1) mmol/L Chloride (98-107) mmol/L Carbon Dioxide (22-30) mmol/L BUN (7-17) mg/dL Creatinine (0.52-1.04) mg/dL Glucose (74-99) mg/dL POC Glucose (mg/dL) 113 H (70-110) mg/dL Osmolality (280-301) mosm/kg Calcium (8.4-10.2) mg/dL 07/12/23 Range/Units 07:21 Hgb (11.4-16.0) gm/dL Hct (34.0-46.0) % Lymphocytes # (1.0-4.8) k/uL Sodium 127 L (137-145) mmol/L Potassium (3.5-5.1) mmol/L Chloride 92 L (98-107) mmol/L Carbon Dioxide 33 H (22-30) mmol/L BUN 6 L (7-17) mg/dL Creatinine 0.45 L (0.52-1.04) mg/dL Glucose 106 H (74-99) mg/dL POC Glucose (mg/dL) (70-110) mg/dL Osmolality (280-301) mosm/kg Calcium 7.2 L (8.4-10.2) mg/dL
[2023-07-12] MEDS ORDERED: FUROSEMIDE 10 MG/ML 2 ML VIAL IV ONE (15:00)
[2023-07-12 16:49] LABS: Glucose,Whole Blood 139 mg/dL (70-110)
[2023-07-12 19:47] LABS: Glucose,Whole Blood 121 mg/dL (70-110)
[2023-07-12] MEDS: ATORVASTATIN 40 MG TAB PO SCH (20:17)
[2023-07-12] MEDS: INSULIN DETEMIR (LEVEMIR) 100 UNIT/ML SYR SQ SCH (20:18)
[2023-07-13] MEDS: PIPERACILLIN-TAZOBACTAM 3.375 GM in SODIUM CHLORIDE 0.9% 100 ML IVPB SCH ×3 (03:01→19:39)
[2023-07-13 06:17] LABS: Glucose,Whole Blood 53 mg/dL (70-110)
[2023-07-13] MEDS ORDERED: DEXTROSE 50% SYRINGE 50 ML IVP ONE (06:17)
[2023-07-13 06:37] LABS: Glucose,Whole Blood 198 mg/dL (70-110)
[2023-07-13] MEDS: LEVOTHYROXINE 25 MCG TAB PO SCH (08:39)
[2023-07-13] MEDS: INSULIN ASPART (NovoLOG) 100 UNIT/ML VIAL SQ SCH ×4 (08:40→20:07)
[2023-07-13] MEDS: APIXABAN 5 MG TAB PO SCH ×2 (08:40→19:39)
[2023-07-13] MEDS: SODIUM CHLORIDE 0.9% 1,000 ML IV SCH (08:40)
[2023-07-13] MEDS: MULTIVITAMINS, THERA 1 EACH TAB PO SCH (09:40)
[2023-07-13] MEDS: CITALOPRAM HYDROBROMIDE 20 MG TAB PO SCH (09:40)
[2023-07-13] MEDS: METOPROLOL SUCCINATE (ER) 25 MG TAB.ER.24H PO SCH (09:40)
[2023-07-13] MEDS: CLOPIDOGREL 75 MG TAB PO SCH (09:40)
[2023-07-13] MEDS: MAGNESIUM OXIDE 400 MG TAB PO SCH ×2 (09:40→19:39)
[2023-07-13] MEDS: FLUDROCORTISONE 0.1 MG TAB PO SCH (09:40)
[2023-07-13] MEDS: FAMOTIDINE 20 MG TAB PO SCH (09:40)
[2023-07-13] MEDS: POTASSIUM CHLORIDE ER 20 MEQ TAB.ER PO SCH (09:40)
--- NOTE | 2023-07-13 11:11 | P.PN ---
Subjective Patient is seen in follow-up for hyponatremia. Sodium level 127 as of yesterday. Oral intake poor. Hemodynamically stable. On 2 L nasal cannula. Nonoliguric. Vital signs are stable. General: No acute distress. HEENT: Head exam is unremarkable. LUNGS: No audible rhonchi or wheezes. HEART: Rate and Rhythm are regular. ABDOMEN: Nontender. EXTREMITITES: No edema. Objective - Vital Signs Vital signs: Vital Signs Temp 98.4 F 07/13/23 08:00 Pulse 81 07/13/23 08:00 Resp 16 07/13/23 08:00 BP 153/75 07/13/23 08:00 Pulse Ox 100 07/13/23 08:00 FiO2 50 07/07/23 11:25 Intake & Output 07/12/23 07/13/23 07/13/23 18:59 06:59 18:59 Output Total 600 1000 Balance -600 -1000 Weight 79.5 kg Output: Urine 600 1000 Other: Voiding Method External Catheter External Catheter External Catheter # Voids 1 - Labs CBC & Chem 7: 07/12/23 07:21 07/12/23 07:21 Labs: Abnormal Lab Results - Last 24 Hours (Table) 07/12/23 07/12/23 07/13/23 Range/Units 16:45 19:46 06:16 POC Glucose (mg/dL) 139 H 121 H 53 L (70-110) mg/dL 07/13/23 Range/Units 06:36 POC Glucose (mg/dL) 198 H (70-110) mg/dL Assessment and Plan Plan: Assessment: 1. Hyponatremia. Currently appears euvolemic. Component of poor solute intake. 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 Sodium level 127 yesterday. Urine sodium 81 and urine osmolality 345. TSH normal. Cortisol level not low. 2. Acute ischemic stroke involving the right medial frontal lobe and left medial frontal lobe. Neurology following. 3. Hypokalemia from poor intake and diuresis. Worsened with Florinef. Replaced. Better. 4. Hypomagnesemia from diuresis and poor intake. Improved. On oral magnesium oxide. 5. Coronary disease status post CABG. 6. Chronic systolic CHF with ejection fraction of 40-45% with moderate pulmonary hypertension. Plan: Maintain fluid restriction. Encouraged oral intake. Status post IV Lasix given yesterday. Morning labs pending. Consider stopping Florinef as blood pressure is not low.
[2023-07-13 11:41] LABS: Glucose,Whole Blood 218 mg/dL (70-110)
[2023-07-13] MEDS: HYDROPHILIC CREAM 180 GM TUBE TOPICAL SCH (12:51)
[2023-07-13 13:29] LABS: African American GFR (CKD) >90 (>60 ml/min/1.73 sqM); Anion Gap 4 mmol/L; Blood Urea Nitrogen 5 mg/dL (7-17); Calcium 7.6 mg/dL (8.4-10.2); Carbon Dioxide 32 mmol/L (22-30); Chloride 92 mmol/L (98-107); Glucose 111 mg/dL (74-99); Magnesium 1.9 mg/dL (1.6-2.3); Non-African American GFR(CKD) >90 (>60 ml/min/1.73 sqM); Potassium 3.3 mmol/L (3.5-5.1); Sodium 128 mmol/L (137-145)
--- NOTE | 2023-07-13 13:56 | P.PN ---
Subjective Progress Note Date: 07/13/23 82-year-old female seen in the emergency department, on July 06. She has a history of prior CVA with right-sided deficits, and presents to the emergency department, from a nursing facility, for possible new CVA. The patient was found to be minimally responsive at the [facility], and only responsive to painful stimuli. For that reason, EMS was called, and she was brought to be evaluated. On arrival to the ER, the patient was slurring her words, and mumbling, without any comprehensible words. Brain CT showed evidence of encephalomalacia, within the left superior frontal gyrus with additional hypodensity extending to the left middle frontal gyrus. Findings were likely to reflect more chronic infarction then acute abnormality. Laboratory data includes a white count 12.3, hemoglobin 11.4, hematocrit 35.1, and a normal platelet count. Blood gases show pO2 of 95, pCO2 40, pH is 7.51. Sodium 133, potassium 3.4, chlorides 93, CO2 29, within normal BUN and creatinine. Pro- calcitonin level was 0.28. TSH was normal. Chest x-ray showed evidence of pulmonary vascular congestion, scattered infiltrates, and bilateral pleural effusions with cardiomegaly. Progress note dated 07/08/2023. 82-year-old female seen yesterday in consultation. The patient was thought to have either pneumonia and/or heart failure. Clinically, she feels better today. She remains on O2 at 6 L, with saturations of 98%. That can be titrated down. She's getting saline at 20 mL an hour. She did not use BiPAP last night. She was on BiPAP yesterday when I saw her. Current labs included glucose 154. On today's evaluation of 07/09/2023, seeing the patient for a follow-up. The patient is resting comfortably in bed. No signs of any significant respiratory distress. No focal neurological deficits. The patient's left-sided weakness is improved. Cardiac exam shows an ejection fraction of 40-45% and the patient's chest x-ray showed CHF and bilateral small pleural effusions the patient remains on IV Lasix. The patient has no significant complaints otherwise. Blood work from today shows a sodium level of 131, potassium level of 3.5, BUN is 40 with a creatinine of 0.4. Blood sugars at 192. Neuro workup is in progress and the patient is going to undergo an MRI/MRA of the brain. Chest x-ray from today still showing CHF with small pleural effusion and interstitial infiltrates bilaterally and the patient has previous sternotomy. The patient remains on IV Zosyn. The patient remains on Lasix 20 mg IV every 12 hours. The fluid balance over the past 24 hours essentially negative. The patient has no specific complaints at this point in time. 07/10/2023, I'm seeing the patient for a follow-up. The patient has been on oxygen and she remains on 1.5 L nasal cannula with a pulse ox of 93-94%. She has a congested cough. She is quite weak and debilitated. She is afebrile. She remains on broad-spectrum antibiotics and the patient remains on IV Zosyn. She is also receiving Lasix 20 mg IV every 12 hours. Blood work from today shows a sodium level of 129, potassium levels at 2.4 to be replaced, BUN is at 10 with a creatinine of 0.49. Neurologically, the patient is quite debilitated. She is weak. She is responsive. She does have some residual left-sided weakness. Her mentation is also slow. She is on aspirin and anticoagulation without a course regarding her chronic atrial fibrillation. Neurology is still on the case. MRI of the brain was completed yesterday and the patient was found to have an acute/subacute CVA involving the right medial frontal lobe possibly the cortex of the medial aspect of the left frontal lobe which is superimposed remote-appearing injury on the left frontal lobe. There is also nonspecific white matter changes. MRA of the brain showed no significant change and there was some mild to moderate narrowing of the right supraclinoid internal carotid artery otherwise there was no aneurysm. 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 On today's evaluation of 07/11/2023, the patient is on 2 L of oxygen by nasal ca nnula with a pulse ox of 96%. The patient is post CVA with left-sided weakness. The patient is currently on Plavix. The patient is also on anticoagulation with Eliquis 5 mg by mouth twice a day regarding her chronic into fibrillation. No plans for cardiac catheterization per cardiology. Electrolytes are still abnormal and the patient's sodium levels of 126 with a potassium level of 2.2 that needs to be replaced with a BUN of 9 and a creatinine of 0.5 the patient is currently on normal saline at 20 mL an hour. The patient is receiving potassium supplements in addition to potassium replacement. No major change in her condition for now. The patient was seen by nephrology. She is euvolemic. Lasix was discontinued and the patient was placed on fluid restriction and salt tablets. 07/12/2023, the patient remains on oxygen at 2 L. A repeat chest x-ray was done and showed bibasilar pulmonary infiltrates and effusion consistent with CHF. The patient was on diuretics and diuretics were placed on hold because of hyponatremia. As such, the patient will be given another dose of Lasix today 20 mg IV push. She is still having generalized weakness and the weakness is more so on the right related to her recent CVA. The patient's sodium today is at 127, BUN is at 6 with a creatinine of 0.45 and a potassium levels at 3.7. Bicarb is at 33. The white cell count is 6.9 with a hemoglobin of 10.8. No respiratory distress. No difficulties in swallowing. Her oral intake is quite diminished. She remains significantly debilitated. 07/13/2023, the patient is awake and alert and she is communicating. No new complaints. She was given a dose of Lasix yesterday with adequate diuresis. She remains on IV Zosyn. She remains on 2 L of oxygen by nasal cannula. The labs from today shows a sodium level of 128 with a potassium level of 3.3. Note that his sodium level is slightly improved compared to yesterday. BUN is at 5 the creatinine 0.4. Blood sugars at 218. The patient is producing adequate amount of urine output. Oral intake remains poor. Hemodynamically stable. Objective - Vital Signs Vital signs: Vital Signs Temp 98.4 F 07/13/23 12:00 Pulse 89 07/13/23 12:00 Resp 18 07/13/23 12:00 BP 158/74 07/13/23 12:00 Pulse Ox 100 07/13/23 12:00 FiO2 50 07/07/23 11:25 Intake & Output 07/12/23 07/13/23 07/13/23 18:59 06:59 18:59 Intake Total 118 Output Total 600 1000 Balance -600 -1000 118 Weight 79.5 kg Intake: Oral 118 Output: Urine 600 1000 Other: Voiding Method External Catheter External Catheter External Catheter # Voids 1 1 - Labs CBC & Chem 7: 07/12/23 07:21 07/13/23 10:31 Labs: Abnormal Lab Results - Last 24 Hours (Table) 07/12/23 07/12/23 07/13/23 Range/Units 16:45 19:46 06:16 Sodium (137-145) mmol/L Potassium (3.5-5.1) mmol/L Chloride (98-107) mmol/L Carbon Dioxide (22-30) mmol/L BUN (7-17) mg/dL Creatinine (0.52-1.04) mg/dL Glucose (74-99) mg/dL POC Glucose (mg/dL) 139 H 121 H 53 L (70-110) mg/dL Calcium (8.4-10.2) mg/dL 07/13/23 07/13/23 07/13/23 Range/Units 06:36 10:31 11:40 Sodium 128 L (137-145) mmol/L Potassium 3.3 L (3.5-5.1) mmol/L Chloride 92 L (98-107) mmol/L Carbon Dioxide 32 H (22-30) mmol/L BUN 5 L (7-17) mg/dL Creatinine 0.47 L (0.52-1.04) mg/dL Glucose 111 H (74-99) mg/dL POC Glucose (mg/dL) 198 H 218 H (70-110) mg/dL Calcium 7.6 L (8.4-10.2) mg/dL Assessment and Plan Plan: Acute on chronic neurologic symptomatology, rule out new CVA., Currently inactive and stable and the patient is undergoing further workup including MRI/MRA of the brain. The patient is currently on aspirin and anticoagulation with Eliquis MRI of the brain showed an acute/subacute CVA involving the right medial frontal lobe possibly the cortex of the medial aspect of the left frontal lobe which is superimposed on a remote-appearing injury of the left frontal lobe. Acute hypoxic respiratory failure and the patient is currently on 2 L of O2 by nasal cannula. Chest x-ray at the time of presentation was more consistent with CHF with lower lobe pulmonary infiltrates. Aspiration pneumonia cannot be completely ruled out. The patient is currently on IV Zosyn. The patient is being dialyzed IV Lasix and the patient is also covered with broad-spectrum antibiotics. Chronic systolic heart failure with an ejection fraction of 40-45% along with some mild mitral regurgitation Acute hyponatremia and hypokalemia, euvolemic History of hypertension. History of diabetes mellitus. History of atrial fibrillation. The rate is controlled at this point in time, the patient is currently on anti-coagulation with Eliquis History of hyperlipidemia. History of hypothyroidism. History of colon and uterine cancer Plan: Clinically improved and she remains on 2 L of oxygen by nasal cannula. Sodium level is slightly improved compared to yesterday except 128 IV monitor urine output Monitor sodium Repeat chest x-ray from today was noted and is consistent with some fluid overload and CHF and small bilateral pleural effusions Wean down FiO2 and currently she is on 2 L of O2 nasal cannula Continue on IV Zosyn MRI/MRA of the brain was noted We'll continue to follow May recommend additional diuretic doses as long as nephrology is agreeable Full CODE STATUS for now
[2023-07-13] MEDS ORDERED: POTASSIUM CHLORIDE ER 20 MEQ TAB.ER PO STA (14:28)
[2023-07-13] MEDS ORDERED: TOLVAPTAN 15 MG TABLET PO ONE (14:29)
[2023-07-13 16:21] LABS: Glucose,Whole Blood 200 mg/dL (70-110)
--- NOTE | 2023-07-13 16:46 | P.PN ---
Subjective Progress Note Date: 07/13/23 Patient evaluated today resting in bed no neurological deficits noted. Left sided weakness appears resolved at this time, patient does have chronic right weakness from prior stroke. Echocardiogram completed with an EF noted of 40- 45%. Patient remains on 5 L of oxygen with a oxygen saturation around 90%. Chest x-ray reveals CHF with bilateral consolidation and small effusion. Patient will be given IV Lasix. Pending MRI/MRA and neurology is following this patient closely. Remains on high flow cannula which is being weaned. Labs today show sodium of 131, BUN 14, creatinine 0.44, blood glucose 192. 07/10/2023 Patient evaluated today sitting up in bed family at the bedside. Discussed positive MRI findings with daughter which does show acute/subacute CVA right medial frontal lobe possibly the cortex of the medial aspect of the left frontal lobe which is super imposed on a remote appearing injury of the left frontal lobe. Nonspecific white matter changes, likely secondary to small vessel isc hemic change. Patient was discharged from [facility] 1 week ago for acute stroke and at that time pts dtr states LV function was normal with EF of 65%. Reports are requested and cardiology has also been consulted for the decreased EF. 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 We will ask wound care to see. 07/11/2023 Is evaluated today resting in bed family at the bedside. She has improved tj pheral edema however her sodium continues to drop on IV Lasix and this will be stopped and nephrology is consulted. Patient also has decreased EF and cardiology was contacted. Discussed with neurology and patient has been transitioned to eliquis 2.5mg twice a day with Plavix 75 mg daily. Wound care has evaluated the patient recommending honey gel and optifoam to the sacral ulceration and to change Sunday as well as tried to left heel and heel protectors. Labs today showing a sodium of 126, potassium 2.2, BUN of 9, creatinine 0.54, magnesium 1.8. A proBNP elevated at 1220. Hemodynamically patient is stable. 07/12/2023 Patient evaluated today resting in bed she continues with diffuse weakness and poor oral intake. IV Lasix was stopped due to the low sodium nephrology was consulted and patient was given a dose of oral sodium bicarbonate. Patient appears to still be in CHF and was given a one-time dose of IV Lasix today. Cardiology was consult for the cardiomyopathy recommending outpatient follow-up in 6-8 weeks for possible stress test. Eliquis has been increased to 5 mg twice a day. 07/13/2023 Patient evaluated today sitting up in bed and there was concern the patient was having increased lethargy, however today she is alert and oriented 3 and patient feels that she is not lethargic. Patient has not had much activity has not been out of bed for prolonged periods of time patient is a total assistance at this time and has been leaning backwards. Patient was able to stand and pivot to the chair today with a 2 person assist. Cardiology recommending to optimize medications for the cardiomyopathy and follow-up in 6-8 weeks for possible stress test. Again eliquis was increased to 5 mg twice a day. Nephrology is following the hyponatremia and sodium level today is 128. She received a dose of Samsca 7.5 mg once. Remains on IV Zosyn for a possible aspiration pneumonia. Hemodynamically she is stable and she has 100% oxygen saturation on 2 L nasal cannula and this can be weaned. Discharge planning in progress and patient is pending prior authorization to discharge back to [facility]. Diet has been downgraded to a dysphagia level CHF with fluid restriction 12-lead cc and Dr. thick liquids and no straws. Patient is on strict aspiration precautions. Review of Systems Constitutional: Denied any fatigue denied any fever. Cardio vascular: denied any chest pain, palpitations Gastrointestinal: denied any nausea, vomiting, diarrhea Pulmonary: Reports shortness of breath, cough Neurologic: Continues with diffuse weakness and right greater than left UE weakness. All inpatient medications were reviewed and appropriate changes in these medications as dictated in the interval history and assessment and plan. PHYSICAL EXAMINATION: GENERAL: The patient is alert and oriented x3, not in any acute distress. Well developed, well nourished. HEENT: Pupils are round and equally reacting to light. EOMI. No scleral icterus. No conjunctival pallor. Normocephalic, atraumatic. No pharyngeal erythema. No thyromegaly. CARDIOVASCULAR: S1 and S2 present. No murmurs, rubs, or gallops. PULMONARY: Chest is clear to auscultation, no wheezing or crackles. ABDOMEN: Soft, nontender, nondistended, normoactive bowel sounds. No palpable or ganomegaly. MUSCULOSKELETAL: No joint swelling or deformity. EXTREMITIES: No cyanosis, clubbing, Bilateral lower extremity edema and right arm peripheral edema NEUROLOGICAL: Gross neurological examination did not reveal any focal deficits. Right UE weakness and edema Has mild LE weakness as well. SKIN: No rashes. Pressure injury/wound to the coccyx. Assessment Significant episode of unresponsiveness and new left sided weakness MRI positive for acute/subacute CVA right medial frontal lobe. 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 Cardiology consultation for the decreased LV systolic function recommending outpatient follow up 6 to 8 weeks for stress test. Patient is given a dose of Samsca today and will repeat labs in the morning to monitor the sodium level. Patient also received potassium supplementation. Plan is for return to [facility] on discharge and insurance authorization is currently pending. The impression and plan of care has been dictated by Janie Thompson, Nurse Practitioner as directed. Dr. Vicky MD I have performed a history and physical examination and medical decision making of this patient, discussed the same with the dictator, and agree with the dictators assessment and plan as written, documented as a scribe. Based on total visit time, I have performed more than 50% of this visit. Objective - Vital Signs Vital signs: Vital Signs Temp 98.4 F 07/13/23 12:00 Pulse 89 07/13/23 12:00 Resp 18 07/13/23 12:00 BP 158/74 07/13/23 12:00 Pulse Ox 100 07/13/23 12:00 FiO2 50 07/07/23 11:25 Intake & Output 07/12/23 07/13/23 07/13/23 18:59 06:59 18:59 Intake Total 118 Output Total 600 1000 Balance -600 -1000 118 Weight 79.5 kg 79.5 kg Intake: Oral 118 Output: Urine 600 1000 Other: Voiding Method External Catheter External Catheter External Catheter # Voids 1 1 - Labs CBC & Chem 7: 07/12/23 07:21 07/13/23 10:31 Labs: Abnormal Lab Results - Last 24 Hours (Table) 07/12/23 07/12/23 07/13/23 Range/Units 16:45 19:46 06:16 Sodium (137-145) mmol/L Potassium (3.5-5.1) mmol/L Chloride (98-107) mmol/L Carbon Dioxide (22-30) mmol/L BUN (7-17) mg/dL Creatinine (0.52-1.04) mg/dL Glucose (74-99) mg/dL POC Glucose (mg/dL) 139 H 121 H 53 L (70-110) mg/dL Calcium (8.4-10.2) mg/dL 07/13/23 07/13/23 07/13/23 Range/Units 06:36 10:31 11:40 Sodium 128 L (137-145) mmol/L Potassium 3.3 L (3.5-5.1) mmol/L Chloride 92 L (98-107) mmol/L Carbon Dioxide 32 H (22-30) mmol/L BUN 5 L (7-17) mg/dL Creatinine 0.47 L (0.52-1.04) mg/dL Glucose 111 H (74-99) mg/dL POC Glucose (mg/dL) 198 H 218 H (70-110) mg/dL Calcium 7.6 L (8.4-10.2) mg/dL Assessment and Plan Time with Patient: Less than 30
[2023-07-13] MEDS: HYDROcodone/APAP 5-325MG 1 EACH TAB PO PRN (17:14)
[2023-07-13] MEDS: ATORVASTATIN 40 MG TAB PO SCH (19:39)
[2023-07-13 20:04] LABS: Glucose,Whole Blood 260 mg/dL (70-110)
[2023-07-13] MEDS: INSULIN DETEMIR (LEVEMIR) 100 UNIT/ML SYR SQ SCH (20:07)
[2023-07-14] MEDS: PIPERACILLIN-TAZOBACTAM 3.375 GM in SODIUM CHLORIDE 0.9% 100 ML IVPB SCH ×2 (03:31→11:07)
[2023-07-14] MEDS: APIXABAN 5 MG TAB PO SCH ×2 (05:50→17:37)
[2023-07-14] MEDS: LEVOTHYROXINE 25 MCG TAB PO SCH (05:50)
[2023-07-14 06:07] LABS: Glucose,Whole Blood 69 mg/dL (70-110)
[2023-07-14] MEDS: INSULIN ASPART (NovoLOG) 100 UNIT/ML VIAL SQ SCH ×4 (06:14→21:08)
[2023-07-14 06:27] LABS: Glucose,Whole Blood 72 mg/dL (70-110)
[2023-07-14] MEDS: CLOPIDOGREL 75 MG TAB PO SCH (08:35)
[2023-07-14] MEDS: MULTIVITAMINS, THERA 1 EACH TAB PO SCH (08:35)
[2023-07-14] MEDS: CITALOPRAM HYDROBROMIDE 20 MG TAB PO SCH (08:35)
[2023-07-14] MEDS: METOPROLOL SUCCINATE (ER) 25 MG TAB.ER.24H PO SCH (08:35)
[2023-07-14] MEDS: MAGNESIUM OXIDE 400 MG TAB PO SCH ×2 (08:35→21:08)
[2023-07-14] MEDS: FLUDROCORTISONE 0.1 MG TAB PO SCH (08:35)
[2023-07-14] MEDS: FAMOTIDINE 20 MG TAB PO SCH (08:35)
[2023-07-14] MEDS: POTASSIUM CHLORIDE ER 20 MEQ TAB.ER PO SCH (08:35)
[2023-07-14] MEDS: SODIUM CHLORIDE 0.9% 1,000 ML IV SCH (08:36)
[2023-07-14] MEDS: HYDROPHILIC CREAM 180 GM TUBE TOPICAL SCH (08:36)
[2023-07-14 09:57] LABS: African American GFR (CKD) >90 (>60 ml/min/1.73 sqM); Anion Gap 5 mmol/L; Blood Urea Nitrogen 4 mg/dL (7-17); Calcium 8.1 mg/dL (8.4-10.2); Carbon Dioxide 32 mmol/L (22-30); Chloride 96 mmol/L (98-107); Glucose 124 mg/dL (74-99); Magnesium 1.8 mg/dL (1.6-2.3); Non-African American GFR(CKD) 86 (>60 ml/min/1.73 sqM); Potassium 3.9 mmol/L (3.5-5.1); Sodium 133 mmol/L (137-145)
[2023-07-14 11:27] LABS: Glucose,Whole Blood 135 mg/dL (70-110)
[2023-07-14] MEDS: MAGNESIUM SULFATE-D5W PMX 1 GM in DEXTROSE/WATER 1 100ML.BAG IVPB SCH ×2 (13:10→14:23)
--- NOTE | 2023-07-14 13:54 | P.PN ---
Subjective Progress Note Date: 07/14/23 82-year-old female seen in the emergency department, on July 06. She has a history of prior CVA with right-sided deficits, and presents to the emergency department, from a nursing facility, for possible new CVA. The patient was found to be minimally responsive at the retirement, and only responsive to painful stimuli. For that reason, EMS was called, and she was brought to be evaluated. On arrival to the ER, the patient was slurring her words, and mumbling, without any comprehensible words. Brain CT showed evidence of encephalomalacia, within the left superior frontal gyrus with additional hypodensity extending to the left middle frontal gyrus. Findings were likely to reflect more chronic infarction then acute abnormality. Laboratory data includes a white count 12.3, hemoglobin 11.4, hematocrit 35.1, and a normal platelet count. Blood gases show pO2 of 95, pCO2 40, pH is 7.51. Sodium 133, potassium 3.4, chlorides 93, CO2 29, within normal BUN and creatinine. Pro- calcitonin level was 0.28. TSH was normal. Chest x-ray showed evidence of pulmonary vascular congestion, scattered infiltrates, and bilateral pleural effusions with cardiomegaly. Progress note dated 07/08/2023. 82-year-old female seen yesterday in consultation. The patient was thought to have either pneumonia and/or heart failure. Clinically, she feels better today. She remains on O2 at 6 L, with saturations of 98%. That can be titrated down. She's getting saline at 20 mL an hour. She did not use BiPAP last night. She was on BiPAP yesterday when I saw her. Current labs included glucose 154. On today's evaluation of 07/09/2023, seeing the patient for a follow-up. The patient is resting comfortably in bed. No signs of any significant respiratory distress. No focal neurological deficits. The patient's left-sided weakness is improved. Cardiac exam shows an ejection fraction of 40-45% and the patient's chest x-ray showed CHF and bilateral small pleural effusions the patient remains on IV Lasix. The patient has no significant complaints otherwise. Blood work from today shows a sodium level of 131, potassium level of 3.5, BUN is 40 with a creatinine of 0.4. Blood sugars at 192. Neuro workup is in progress and the patient is going to undergo an MRI/MRA of the brain. Chest x-ray from today still showing CHF with small pleural effusion and interstitial infiltrates bilaterally and the patient has previous sternotomy. The patient remains on IV Zosyn. The patient remains on Lasix 20 mg IV every 12 hours. The fluid balance over the past 24 hours essentially negative. The patient has no specific complaints at this point in time. 07/10/2023, I'm seeing the patient for a follow-up. The patient has been on oxygen and she remains on 1.5 L nasal cannula with a pulse ox of 93-94%. She has a congested cough. She is quite weak and debilitated. She is afebrile. She remains on broad-spectrum antibiotics and the patient remains on IV Zosyn. She is also receiving Lasix 20 mg IV every 12 hours. Blood work from today shows a sodium level of 129, potassium levels at 2.4 to be replaced, BUN is at 10 with a creatinine of 0.49. Neurologically, the patient is quite debilitated. She is weak. She is responsive. She does have some residual left-sided weakness. Her mentation is also slow. She is on aspirin and anticoagulation without a course regarding her chronic atrial fibrillation. Neurology is still on the case. MRI of the brain was completed yesterday and the patient was found to have an acute/subacute CVA involving the right medial frontal lobe possibly the cortex of the medial aspect of the left frontal lobe which is superimposed remote-appearing injury on the left frontal lobe. There is also nonspecific white matter changes. MRA of the brain showed no significant change and there was some mild to moderate narrowing of the right supraclinoid internal carotid artery otherwise there was no aneurysm. 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 On today's evaluation of 07/11/2023, the patient is on 2 L of oxygen by nasal ca nnula with a pulse ox of 96%. The patient is post CVA with left-sided weakness. The patient is currently on Plavix. The patient is also on anticoagulation with Eliquis 5 mg by mouth twice a day regarding her chronic into fibrillation. No plans for cardiac catheterization per cardiology. Electrolytes are still abnormal and the patient's sodium levels of 126 with a potassium level of 2.2 that needs to be replaced with a BUN of 9 and a creatinine of 0.5 the patient is currently on normal saline at 20 mL an hour. The patient is receiving potassium supplements in addition to potassium replacement. No major change in her condition for now. The patient was seen by nephrology. She is euvolemic. Lasix was discontinued and the patient was placed on fluid restriction and salt tablets. 07/12/2023, the patient remains on oxygen at 2 L. A repeat chest x-ray was done and showed bibasilar pulmonary infiltrates and effusion consistent with CHF. The patient was on diuretics and diuretics were placed on hold because of hyponatremia. As such, the patient will be given another dose of Lasix today 20 mg IV push. She is still having generalized weakness and the weakness is more so on the right related to her recent CVA. The patient's sodium today is at 127, BUN is at 6 with a creatinine of 0.45 and a potassium levels at 3.7. Bicarb is at 33. The white cell count is 6.9 with a hemoglobin of 10.8. No respiratory distress. No difficulties in swallowing. Her oral intake is quite diminished. She remains significantly debilitated. 07/13/2023, the patient is awake and alert and she is communicating. No new complaints. She was given a dose of Lasix yesterday with adequate diuresis. She remains on IV Zosyn. She remains on 2 L of oxygen by nasal cannula. The labs from today shows a sodium level of 128 with a potassium level of 3.3. Note that his sodium level is slightly improved compared to yesterday. BUN is at 5 the creatinine 0.4. Blood sugars at 218. The patient is producing adequate amount of urine output. Oral intake remains poor. Hemodynamically stable. 07/14/2023, the patient remains on 2 L. No significant respiratory distress. Sodium level is improved and is currently up to 133. BUN is at 4 with a creatinine of 0.5 and the rest of the electrolytes are normal. No fever. No chills. On 3 L O2 nasal cannula with a pulse ox of 99%. She's afebrile. Tolerating her diet. Objective - Vital Signs Vital signs: Vital Signs Temp 97.5 F L 07/14/23 11:36 Pulse 75 07/14/23 11:36 Resp 18 07/14/23 11:36 BP 166/80 07/14/23 11:36 Pulse Ox 99 07/14/23 11:36 FiO2 50 07/07/23 11:25 Intake & Output 07/13/23 07/14/23 07/14/23 18:59 06:59 18:59 Intake Total 118 240 Output Total 400 600 400 Balance -282 -600 -160 Weight 79.5 kg 77.5 kg Intake: Oral 118 240 Output: Urine 400 600 400 Other: Voiding Method External Catheter External Catheter External Catheter # Voids 1 - Exam No acute distress, oriented, currently on 2 L of oxygen by nasal cannula HEENT examination is grossly unremarkable. Neck supple. Full range of motion. No adenopathy thyromegaly or neck vein distention. Cardiovascular examination reveals regular rhythm rate. S1-S2 normal. No S3 or S4. No discernible murmur noted. Heart rate 89 bpm. Heart sounds are distant. Lungs reveal scattered rhonchi. No wheezes or crackles. The patient diminished breath sounds bilaterally Abdomen soft bowel sounds are heard. No masses or tenderness. Extremities are intact. No cyanosis clubbing or edema. Skin is without rash or lesion. Neurologically, the patient is awake and alert and the patient does not have any focal neurological deficit. Cranial nerves are essentially intact. - Labs CBC & Chem 7: 07/12/23 07:21 07/14/23 09:03 Labs: Abnormal Lab Results - Last 24 Hours (Table) 07/13/23 07/13/23 07/13/23 Range/Units 10:31 16:19 20:02 Sodium 128 L (137-145) mmol/L Potassium 3.3 L (3.5-5.1) mmol/L Chloride 92 L (98-107) mmol/L Carbon Dioxide 32 H (22-30) mmol/L BUN 5 L (7-17) mg/dL Creatinine 0.47 L (0.52-1.04) mg/dL Glucose 111 H (74-99) mg/dL POC Glucose (mg/dL) 200 H 260 H (70-110) mg/dL Calcium 7.6 L (8.4-10.2) mg/dL 07/14/23 07/14/23 07/14/23 Range/Units 06:05 09:03 11:25 Sodium 133 L (137-145) mmol/L Potassium (3.5-5.1) mmol/L Chloride 96 L (98-107) mmol/L Carbon Dioxide 32 H (22-30) mmol/L BUN 4 L (7-17) mg/dL Creatinine (0.52-1.04) mg/dL Glucose 124 H (74-99) mg/dL POC Glucose (mg/dL) 69 L 135 H (70-110) mg/dL Calcium 8.1 L (8.4-10.2) mg/dL Assessment and Plan Plan: Acute on chronic neurologic symptomatology, rule out new CVA., Currently inactive and stable and the patient is undergoing further workup including MRI/MRA of the brain. The patient is currently on aspirin and anticoagulation with Eliquis MRI of the brain showed an acute/subacute CVA involving the right medial frontal lobe possibly the cortex of the medial aspect of the left frontal lobe which is superimposed on a remote-appearing injury of the left frontal lobe. Acute hypoxic respiratory failure and the patient is currently on 2 L of O2 by nasal cannula. Chest x-ray at the time of presentation was more consistent with CHF with lower lobe pulmonary infiltrates. Aspiration pneumonia cannot be completely ruled out. The patient is currently on IV Zosyn. The patient is being dialyzed IV Lasix and the patient is also covered with broad-spectrum antibiotics. Chronic systolic heart failure with an ejection fraction of 40-45% along with some mild mitral regurgitation Acute hyponatremia and hypokalemia, euvolemic, the patient was given samsca, sodium levels improved History of hypertension. History of diabetes mellitus. History of atrial fibrillation. The rate is controlled at this point in time, the patient is currently on anti-coagulation with Eliquis History of hyperlipidemia. History of hypothyroidism. History of colon and uterine cancer Plan: Clinically improved and she remains on 2 L of oxygen by nasal cannula. Clinically stable Sodium level is improved IV monitor urine output Patient is currently off diuretics Repeat chest x-ray in a.m. Wean down FiO2 and currently she is on 2 L of O2 nasal cannula Continue on IV Zosyn MRI/MRA of the brain was noted We'll continue to follow May recommend additional diuretic doses as long as nephrology is agreeable Full CODE STATUS for now
[2023-07-14] MEDS: HYDROcodone/APAP 5-325MG 1 EACH TAB PO PRN (14:23)
--- NOTE | 2023-07-14 15:39 | P.PN ---
Subjective Progress Note Date: 07/14/23 Follow-up for hyponatremia. Sodium improving. No nausea vomiting diarrhea. Objective - Vital Signs Vital signs: Vital Signs Temp 97.5 F L 07/14/23 11:36 Pulse 75 07/14/23 11:36 Resp 18 07/14/23 11:36 BP 166/80 07/14/23 11:36 Pulse Ox 99 07/14/23 11:36 FiO2 50 07/07/23 11:25 Intake & Output 07/13/23 07/14/23 07/14/23 18:59 06:59 18:59 Intake Total 118 240 Output Total 400 600 400 Balance -282 -600 -160 Weight 79.5 kg 77.5 kg Intake: Oral 118 240 Output: Urine 400 600 400 Other: Voiding Method External Catheter External Catheter External Catheter # Voids 1 - Exam No acute distress S1-S2 heard Decreased breath sounds Abdomen soft No edema - Labs CBC & Chem 7: 07/12/23 07:21 07/14/23 09:03 Labs: Abnormal Lab Results - Last 24 Hours (Table) 07/13/23 07/13/23 07/14/23 Range/Units 16:19 20:02 06:05 Sodium (137-145) mmol/L Chloride (98-107) mmol/L Carbon Dioxide (22-30) mmol/L BUN (7-17) mg/dL Glucose (74-99) mg/dL POC Glucose (mg/dL) 200 H 260 H 69 L (70-110) mg/dL Calcium (8.4-10.2) mg/dL 07/14/23 07/14/23 Range/Units 09:03 11:25 Sodium 133 L (137-145) mmol/L Chloride 96 L (98-107) mmol/L Carbon Dioxide 32 H (22-30) mmol/L BUN 4 L (7-17) mg/dL Glucose 124 H (74-99) mg/dL POC Glucose (mg/dL) 135 H (70-110) mg/dL Calcium 8.1 L (8.4-10.2) mg/dL Assessment and Plan Assessment: #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 #2 hypokalemia secondary to Florinef, decreased oral intake. #3 hypomagnesemia secondary to diuretic use #4 CHF with systolic dysfunction EF of 40% Plan: #1 sodium improving #2 follow-up in one more dose today. BMP in the morning
[2023-07-14] MEDS ORDERED: TOLVAPTAN 15 MG TABLET PO ONE (16:00)
--- NOTE | 2023-07-14 16:33 | P.PN ---
Subjective Progress Note Date: 07/14/23 Patient evaluated today resting in bed no neurological deficits noted. Left sided weakness appears resolved at this time, patient does have chronic right weakness from prior stroke. Echocardiogram completed with an EF noted of 40- 45%. Patient remains on 5 L of oxygen with a oxygen saturation around 90%. Chest x-ray reveals CHF with bilateral consolidation and small effusion. Patient will be given IV Lasix. Pending MRI/MRA and neurology is following this patient closely. Remains on high flow cannula which is being weaned. Labs today show sodium of 131, BUN 14, creatinine 0.44, blood glucose 192. 07/10/2023 Patient evaluated today sitting up in bed family at the bedside. Discussed positive MRI findings with daughter which does show acute/subacute CVA right medial frontal lobe possibly the cortex of the medial aspect of the left frontal lobe which is super imposed on a remote appearing injury of the left frontal lobe. Nonspecific white matter changes, likely secondary to small vessel isc hemic change. Patient was discharged from [facility] 1 week ago for acute stroke and at that time pts dtr states LV function was normal with EF of 65%. Reports are requested and cardiology has also been consulted for the decreased EF. 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 We will ask wound care to see. 07/11/2023 Is evaluated today resting in bed family at the bedside. She has improved tj pheral edema however her sodium continues to drop on IV Lasix and this will be stopped and nephrology is consulted. Patient also has decreased EF and cardiology was contacted. Discussed with neurology and patient has been transitioned to eliquis 2.5mg twice a day with Plavix 75 mg daily. Wound care has evaluated the patient recommending honey gel and optifoam to the sacral ulceration and to change Sunday as well as tried to left heel and heel protectors. Labs today showing a sodium of 126, potassium 2.2, BUN of 9, creatinine 0.54, magnesium 1.8. A proBNP elevated at 1220. Hemodynamically patient is stable. 07/12/2023 Patient evaluated today resting in bed she continues with diffuse weakness and poor oral intake. IV Lasix was stopped due to the low sodium nephrology was consulted and patient was given a dose of oral sodium bicarbonate. Patient appears to still be in CHF and was given a one-time dose of IV Lasix today. Cardiology was consult for the cardiomyopathy recommending outpatient follow-up in 6-8 weeks for possible stress test. Eliquis has been increased to 5 mg twice a day. 07/13/2023 Patient evaluated today sitting up in bed and there was concern the patient was having increased lethargy, however today she is alert and oriented 3 and patient feels that she is not lethargic. Patient has not had much activity has not been out of bed for prolonged periods of time patient is a total assistance at this time and has been leaning backwards. Patient was able to stand and pivot to the chair today with a 2 person assist. Cardiology recommending to optimize medications for the cardiomyopathy and follow-up in 6-8 weeks for possible stress test. Again eliquis was increased to 5 mg twice a day. Nephrology is following the hyponatremia and sodium level today is 128. She received a dose of Samsca 7.5 mg once. Remains on IV Zosyn for a possible aspiration pneumonia. Hemodynamically she is stable and she has 100% oxygen saturation on 2 L nasal cannula and this can be weaned. Discharge planning in progress and patient is pending prior authorization to discharge back to [facility]. Diet has been downgraded to a dysphagia level CHF with fluid restriction 12-lead cc and Dr. thick liquids and no straws. Patient is on strict aspiration precautions. 07/14/2023 Patient evaluated today sitting in bed she is much more awake and has decreased lethargy. Sodium is also improved 133 patient is being followed by nephrology for this. Pulmonary is recommending additional dose of IV Lasix if okay with nephrology. Remains on IV Zosyn. Patient will discharge back to the [facility] pending insurance authorization. She reports feeling better and hemodynamically she is stable. Review of Systems Constitutional: Denied any fatigue denied any fever. Cardio vascular: denied any chest pain, palpitations Gastrointestinal: denied any nausea, vomiting, diarrhea Pulmonary: Reports shortness of breath, cough Neurologic: Continues with diffuse weakness and right greater than left UE weakness. All inpatient medications were reviewed and appropriate changes in these medications as dictated in the interval history and assessment and plan. PHYSICAL EXAMINATION: GENERAL: The patient is alert and oriented x3, not in any acute distress. Well developed, well nourished. HEENT: Pupils are round and equally reacting to light. EOMI. No scleral icterus. No conjunctival pallor. Normocephalic, atraumatic. No pharyngeal erythema. No thyromegaly. CARDIOVASCULAR: S1 and S2 present. No murmurs, rubs, or gallops. PULMONARY: Chest is clear to auscultation, no wheezing or crackles. ABDOMEN: Soft, nontender, nondistended, normoactive bowel sounds. No palpable organomegaly. MUSCULOSKELETAL: No joint swelling or deformity. EXTREMITIES: No cyanosis, clubbing, Bilateral lower extremity edema and right arm peripheral edema NEUROLOGICAL: Gross neurological examination did not reveal any focal deficits. Right UE weakness and edema Has mild LE weakness as well. SKIN: No rashes. Pressure injury/wound to the coccyx. Assessment Significant episode of unresponsiveness and new left sided weakness MRI positive for acute/subacute CVA right medial frontal lobe. 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 Cardiology consultation for the decreased LV systolic function recommending outpatient follow up 6 to 8 weeks for stress test. Sodium level has improved with further recommendations by nephrology for this. Plan is for return to [facility] on discharge and insurance authorization is currently pending. The impression and plan of care has been dictated by Janie Thompson Nurse Practitioner as directed. Dr. Vicky MD I have performed a history and physical examination and medical decision making of this patient, discussed the same with the dictator, and agree with the dictators assessment and plan as written, documented as a scribe. Based on total visit time, I have performed more than 50% of this visit. Objective - Vital Signs Vital signs: Vital Signs Temp 97.9 F 07/14/23 15:39 Pulse 73 07/14/23 15:39 Resp 18 07/14/23 15:39 BP 161/81 07/14/23 15:39 Pulse Ox 98 07/14/23 16:11 FiO2 50 07/07/23 11:25 Intake & Output 07/13/23 07/14/23 07/14/23 18:59 06:59 18:59 Intake Total 118 240 Output Total 400 600 400 Balance -282 -600 -160 Weight 79.5 kg 77.5 kg Intake: Oral 118 240 Output: Urine 400 600 400 Other: Voiding Method External Catheter External Catheter External Catheter # Voids 1 - Labs CBC & Chem 7: 07/12/23 07:21 07/14/23 09:03 Labs: Abnormal Lab Results - Last 24 Hours (Table) 07/13/23 07/14/23 07/14/23 Range/Units 20:02 06:05 09:03 Sodium 133 L (137-145) mmol/L Chloride 96 L (98-107) mmol/L Carbon Dioxide 32 H (22-30) mmol/L BUN 4 L (7-17) mg/dL Glucose 124 H (74-99) mg/dL POC Glucose (mg/dL) 260 H 69 L (70-110) mg/dL Calcium 8.1 L (8.4-10.2) mg/dL 07/14/23 Range/Units 11:25 Sodium (137-145) mmol/L Chloride (98-107) mmol/L Carbon Dioxide (22-30) mmol/L BUN (7-17) mg/dL Glucose (74-99) mg/dL POC Glucose (mg/dL) 135 H (70-110) mg/dL Calcium (8.4-10.2) mg/dL Assessment and Plan Time with Patient: Less than 30
[2023-07-14 16:42] LABS: Glucose,Whole Blood 169 mg/dL (70-110)
[2023-07-14 20:24] LABS: Glucose,Whole Blood 217 mg/dL (70-110)
[2023-07-14] MEDS: ATORVASTATIN 40 MG TAB PO SCH (21:54)
[2023-07-15 05:58] LABS: Glucose,Whole Blood 172 mg/dL (70-110)
[2023-07-15] MEDS: APIXABAN 5 MG TAB PO SCH ×2 (06:27→18:27)
[2023-07-15] MEDS: INSULIN ASPART (NovoLOG) 100 UNIT/ML VIAL SQ SCH ×6 (06:28→20:40)
[2023-07-15] MEDS: LEVOTHYROXINE 25 MCG TAB PO SCH (06:28)
--- NOTE | 2023-07-15 07:49 | XR ---
EXAMINATION TYPE: XR chest 1V DATE OF EXAM: 07/15/2023 HISTORY: Shortness of breath. COMPARISON: 07/12/2023 TECHNIQUE: Single view of the chest is submitted. FINDINGS: Demonstrated are scattered senescent parenchymal change. Persistent but slightly improved pulmonary venous congestion with basilar pleural effusions and proba ble atelectasis. Underlying infiltrates of other etiology not excluded. The heart is stable. Hilar and mediastinal structures are within normal limits. Degenerative changes are seen of the dorsal spine. IMPRESSION: 1. Persistent but slightly improved pulmonary venous congestion with basilar pleural effusions and p robable atelectasis. Underlying infiltrates of other etiology not excluded.
[2023-07-15] MEDS: CITALOPRAM HYDROBROMIDE 20 MG TAB PO SCH (08:24)
[2023-07-15] MEDS: FAMOTIDINE 20 MG TAB PO SCH (08:24)
[2023-07-15] MEDS: CLOPIDOGREL 75 MG TAB PO SCH (08:24)
[2023-07-15] MEDS: MULTIVITAMINS, THERA 1 EACH TAB PO SCH (08:24)
[2023-07-15] MEDS: POTASSIUM CHLORIDE ER 20 MEQ TAB.ER PO SCH (08:24)
[2023-07-15] MEDS: METOPROLOL SUCCINATE (ER) 25 MG TAB.ER.24H PO SCH (08:24)
[2023-07-15] MEDS: FLUDROCORTISONE 0.1 MG TAB PO SCH (08:24)
[2023-07-15] MEDS: SODIUM CHLORIDE 0.9% 1,000 ML IV SCH (08:25)
[2023-07-15] MEDS: HYDROPHILIC CREAM 180 GM TUBE TOPICAL SCH (08:25)
[2023-07-15 09:19] LABS: African American GFR (CKD) >90 (>60 ml/min/1.73 sqM); Anion Gap 4 mmol/L; Blood Urea Nitrogen 5 mg/dL (7-17); Calcium 8.2 mg/dL (8.4-10.2); Carbon Dioxide 29 mmol/L (22-30); Chloride 102 mmol/L (98-107); Glucose 155 mg/dL (74-99); Non-African American GFR(CKD) >90 (>60 ml/min/1.73 sqM); Sodium 135 mmol/L (137-145)
[2023-07-15 09:20] LABS: Potassium 4.4 mmol/L (3.5-5.1)
[2023-07-15 11:25] LABS: Glucose,Whole Blood 223 mg/dL (70-110)
--- NOTE | 2023-07-15 11:56 | P.PN ---
Subjective Progress Note Date: 07/15/23 82-year-old female seen in the emergency department, on July 06. She has a history of prior CVA with right-sided deficits, and presents to the emergency department, from a nursing facility, for possible new CVA. The patient was found to be minimally responsive at the [facility], and only responsive to painful stimuli. For that reason, EMS was called, and she was brought to be evaluated. On arrival to the ER, the patient was slurring her words, and mumbling, without any comprehensible words. Brain CT showed evidence of encephalomalacia, within the left superior frontal gyrus with additional hypodensity extending to the left middle frontal gyrus. Findings were likely to reflect more chronic infarction then acute abnormality. Laboratory data includes a white count 12.3, hemoglobin 11.4, hematocrit 35.1, and a normal platelet count. Blood gases show pO2 of 95, pCO2 40, pH is 7.51. Sodium 133, potassium 3.4, chlorides 93, CO2 29, within normal BUN and creatinine. Pro- calcitonin level was 0.28. TSH was normal. Chest x-ray showed evidence of pulmonary vascular congestion, scattered infiltrates, and bilateral pleural effusions with cardiomegaly. Progress note dated 07/08/2023. 82-year-old female seen yesterday in consultation. The patient was thought to have either pneumonia and/or heart failure. Clinically, she feels better today. She remains on O2 at 6 L, with saturations of 98%. That can be titrated down. She's getting saline at 20 mL an hour. She did not use BiPAP last night. She was on BiPAP yesterday when I saw her. Current labs included glucose 154. On today's evaluation of 07/09/2023, seeing the patient for a follow-up. The patient is resting comfortably in bed. No signs of any significant respiratory distress. No focal neurological deficits. The patient's left-sided weakness is improved. Cardiac exam shows an ejection fraction of 40-45% and the patient's chest x-ray showed CHF and bilateral small pleural effusions the patient remains on IV Lasix. The patient has no significant complaints otherwise. Blood work from today shows a sodium level of 131, potassium level of 3.5, BUN is 40 with a creatinine of 0.4. Blood sugars at 192. Neuro workup is in progress and the patient is going to undergo an MRI/MRA of the brain. Chest x-ray from today still showing CHF with small pleural effusion and interstitial infiltrates bilaterally and the patient has previous sternotomy. The patient remains on IV Zosyn. The patient remains on Lasix 20 mg IV every 12 hours. The fluid balance over the past 24 hours essentially negative. The patient has no specific complaints at this point in time. 07/10/2023, I'm seeing the patient for a follow-up. The patient has been on oxygen and she remains on 1.5 L nasal cannula with a pulse ox of 93-94%. She has a congested cough. She is quite weak and debilitated. She is afebrile. She remains on broad-spectrum antibiotics and the patient remains on IV Zosyn. She is also receiving Lasix 20 mg IV every 12 hours. Blood work from today shows a sodium level of 129, potassium levels at 2.4 to be replaced, BUN is at 10 with a creatinine of 0.49. Neurologically, the patient is quite debilitated. She is weak. She is responsive. She does have some residual left-sided weakness. Her mentation is also slow. She is on aspirin and anticoagulation without a course regarding her chronic atrial fibrillation. Neurology is still on the case. MRI of the brain was completed yesterday and the patient was found to have an acute/subacute CVA involving the right medial frontal lobe possibly the cortex of the medial aspect of the left frontal lobe which is superimposed remote-appearing injury on the left frontal lobe. There is also nonspecific white matter changes. MRA of the brain showed no significant change and there was some mild to moderate narrowing of the right supraclinoid internal carotid artery otherwise there was no aneurysm. 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 On today's evaluation of 07/11/2023, the patient is on 2 L of oxygen by nasal ca nnula with a pulse ox of 96%. The patient is post CVA with left-sided weakness. The patient is currently on Plavix. The patient is also on anticoagulation with Eliquis 5 mg by mouth twice a day regarding her chronic into fibrillation. No plans for cardiac catheterization per cardiology. Electrolytes are still abnormal and the patient's sodium levels of 126 with a potassium level of 2.2 that needs to be replaced with a BUN of 9 and a creatinine of 0.5 the patient is currently on normal saline at 20 mL an hour. The patient is receiving potassium supplements in addition to potassium replacement. No major change in her condition for now. The patient was seen by nephrology. She is euvolemic. Lasix was discontinued and the patient was placed on fluid restriction and salt tablets. 07/12/2023, the patient remains on oxygen at 2 L. A repeat chest x-ray was done and showed bibasilar pulmonary infiltrates and effusion consistent with CHF. The patient was on diuretics and diuretics were placed on hold because of hyponatremia. As such, the patient will be given another dose of Lasix today 20 mg IV push. She is still having generalized weakness and the weakness is more so on the right related to her recent CVA. The patient's sodium today is at 127, BUN is at 6 with a creatinine of 0.45 and a potassium levels at 3.7. Bicarb is at 33. The white cell count is 6.9 with a hemoglobin of 10.8. No respiratory distress. No difficulties in swallowing. Her oral intake is quite diminished. She remains significantly debilitated. 07/13/2023, the patient is awake and alert and she is communicating. No new complaints. She was given a dose of Lasix yesterday with adequate diuresis. She remains on IV Zosyn. She remains on 2 L of oxygen by nasal cannula. The labs from today shows a sodium level of 128 with a potassium level of 3.3. Note that his sodium level is slightly improved compared to yesterday. BUN is at 5 the creatinine 0.4. Blood sugars at 218. The patient is producing adequate amount of urine output. Oral intake remains poor. Hemodynamically stable. 07/14/2023, the patient remains on 2 L. No significant respiratory distress. Sodium level is improved and is currently up to 133. BUN is at 4 with a creatinine of 0.5 and the rest of the electrolytes are normal. No fever. No chills. On 3 L O2 nasal cannula with a pulse ox of 99%. She's afebrile. Tolerating her diet. 07/15/2023, patient is doing well. No complaints. A repeat chest x-ray was done and showed improvement in the lung findings with small amount of pleural effusions bilaterally. The patient otherwise is doing well. The patient oxygen and the patient is currently on room air oxygen. Tolerating diet. No aspiration. Blood work from today shows a sodium of 135, potassium of 4.4, BUN is at 5 with a creatinine of 0.47. No new onset focal neurological deficits and the patient's neurologic functions are stable. She is calm and comfortable without any respiratory difficulties. The patient is currently on Plavix. The patient is also on long-term and coagulation with Eliquis. Objective - Vital Signs Vital signs: Vital Signs Temp 97.7 F 07/15/23 08:00 Pulse 95 07/15/23 08:00 Resp 20 07/15/23 08:00 BP 175/85 07/15/23 08:00 Pulse Ox 94 L 07/15/23 08:44 FiO2 50 07/07/23 11:25 Intake & Output 07/14/23 07/15/23 07/15/23 18:59 06:59 18:59 Intake Total 480 Output Total 850 1200 500 Balance -370 -1200 -500 Weight 77.5 kg Intake: Oral 480 Output: Urine 850 1200 500 Other: Voiding Method External Catheter External Catheter External Catheter - Exam No acute distress, oriented, currently on room air oxygen HEENT examination is grossly unremarkable. Neck supple. Full range of motion. No adenopathy thyromegaly or neck vein distention. Cardiovascular examination reveals regular rhythm rate. S1-S2 normal. No S3 or S4. No discernible murmur noted. Heart sounds are distant. Lungs reveal scattered rhonchi. No wheezes or crackles. The patient diminished breath sounds bilaterally Abdomen soft bowel sounds are heard. No masses or tenderness. Extremities are intact. No cyanosis clubbing or edema. Skin is without rash or lesion. Neurologically, the patient is awake and alert and the patient does not have any focal neurological deficit. Cranial nerves are essentially intact. - Labs CBC & Chem 7: 07/12/23 07:21 07/15/23 08:26 Labs: Abnormal Lab Results - Last 24 Hours (Table) 07/14/23 07/14/23 07/14/23 Range/Units 11:25 16:39 20:23 Sodium (137-145) mmol/L BUN (7-17) mg/dL Creatinine (0.52-1.04) mg/dL Glucose (74-99) mg/dL POC Glucose (mg/dL) 135 H 169 H 217 H (70-110) mg/dL Calcium (8.4-10.2) mg/dL 07/15/23 07/15/23 Range/Units 05:56 08:26 Sodium 135 L (137-145) mmol/L BUN 5 L (7-17) mg/dL Creatinine 0.47 L (0.52-1.04) mg/dL Glucose 155 H (74-99) mg/dL POC Glucose (mg/dL) 172 H (70-110) mg/dL Calcium 8.2 L (8.4-10.2) mg/dL Assessment and Plan Plan: Acute on chronic neurologic symptomatology, rule out new CVA., Currently inactive and stable and the patient is undergoing further workup including MRI/MRA of the brain. The patient is currently on aspirin and anticoagulation with Eliquis MRI of the brain showed an acute/subacute CVA involving the right medial frontal lobe possibly the cortex of the medial aspect of the left frontal lobe which is superimposed on a remote-appearing injury of the left frontal lobe. Acute hypoxic respiratory failure improved and the patient is currently on room air oxygen. The patient completed a course of Zosyn. The patient was also diuresed. Chest x-ray shows small amount about the pleural effusions. Nevertheless, oxygenation is improved and the patient is currently on room air. Chronic systolic heart failure with an ejection fraction of 40-45% along with some mild mitral regurgitation Acute hyponatremia and hypokalemia, euvolemic, the patient was given samsca, sodium levels improved History of hypertension. History of diabetes mellitus. History of atrial fibrillation. The rate is controlled at this point in time, the patient is currently on anti-coagulation with Eliquis History of hyperlipidemia. History of hypothyroidism. History of colon and uterine cancer Plan: Clinically improved and she on room air oxygen. Clinically stable Chest x-ray improved Sodium level is improved IV monitor urine output Patient is currently off diuretics Continue on IV Zosyn MRI/MRA of the brain was noted Full CODE STATUS for now Rehab by Sunday
--- NOTE | 2023-07-15 12:16 | P.PN ---
Subjective Progress Note Date: 07/15/23 Patient evaluated today resting in bed no neurological deficits noted. Left sided weakness appears resolved at this time, patient does have chronic right weakness from prior stroke. Echocardiogram completed with an EF noted of 40- 45%. Patient remains on 5 L of oxygen with a oxygen saturation around 90%. Chest x-ray reveals CHF with bilateral consolidation and small effusion. Patient will be given IV Lasix. Pending MRI/MRA and neurology is following this patient closely. Remains on high flow cannula which is being weaned. Labs today show sodium of 131, BUN 14, creatinine 0.44, blood glucose 192. 07/10/2023 Patient evaluated today sitting up in bed family at the bedside. Discussed positive MRI findings with daughter which does show acute/subacute CVA right medial frontal lobe possibly the cortex of the medial aspect of the left frontal lobe which is super imposed on a remote appearing injury of the left frontal lobe. Nonspecific white matter changes, likely secondary to small vessel isc hemic change. Patient was discharged from [facility] 1 week ago for acute stroke and at that time pts dtr states LV function was normal with EF of 65%. Reports are requested and cardiology has also been consulted for the decreased EF. 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 We will ask wound care to see. 07/11/2023 Is evaluated today resting in bed family at the bedside. She has improved tj pheral edema however her sodium continues to drop on IV Lasix and this will be stopped and nephrology is consulted. Patient also has decreased EF and cardiology was contacted. Discussed with neurology and patient has been transitioned to eliquis 2.5mg twice a day with Plavix 75 mg daily. Wound care has evaluated the patient recommending honey gel and optifoam to the sacral ulceration and to change Sunday as well as tried to left heel and heel protectors. Labs today showing a sodium of 126, potassium 2.2, BUN of 9, creatinine 0.54, magnesium 1.8. A proBNP elevated at 1220. Hemodynamically patient is stable. 07/12/2023 Patient evaluated today resting in bed she continues with diffuse weakness and poor oral intake. IV Lasix was stopped due to the low sodium nephrology was consulted and patient was given a dose of oral sodium bicarbonate. Patient appears to still be in CHF and was given a one-time dose of IV Lasix today. Cardiology was consult for the cardiomyopathy recommending outpatient follow-up in 6-8 weeks for possible stress test. Eliquis has been increased to 5 mg twice a day. 07/13/2023 Patient evaluated today sitting up in bed and there was concern the patient was having increased lethargy, however today she is alert and oriented 3 and patient feels that she is not lethargic. Patient has not had much activity has not been out of bed for prolonged periods of time patient is a total assistance at this time and has been leaning backwards. Patient was able to stand and pivot to the chair today with a 2 person assist. Cardiology recommending to optimize medications for the cardiomyopathy and follow-up in 6-8 weeks for possible stress test. Again eliquis was increased to 5 mg twice a day. Nephrology is following the hyponatremia and sodium level today is 128. She received a dose of Samsca 7.5 mg once. Remains on IV Zosyn for a possible aspiration pneumonia. Hemodynamically she is stable and she has 100% oxygen saturation on 2 L nasal cannula and this can be weaned. Discharge planning in progress and patient is pending prior authorization to discharge back to [facility]. Diet has been downgraded to a dysphagia level CHF with fluid restriction 12-lead cc and Dr. thick liquids and no straws. Patient is on strict aspiration precautions. 07/14/2023 Patient evaluated today sitting in bed she is much more awake and has decreased lethargy. Sodium is also improved 133 patient is being followed by nephrology for this. Pulmonary is recommending additional dose of IV Lasix if okay with nephrology. Remains on IV Zosyn. Patient will discharge back to the [facility] pending insurance authorization. She reports feeling better and hemodynamically she is stable. 07/15/2023 Issue is evaluated today sitting up in bed she continues to be more awake and less lethargic and increased appetite. Sodium level today to further improve up to 135. Her blood glucose remains elevated in the 200s and we'll recommend to increase insulin coverage. No new neurological deficits. Her peripheral edema has significantly improved as well. Patient is a return to the care home and this will likely be completed on Sunday. Medically she seems to be doing well and stable. She remains on an increased dose of eliquis 5 mg twice a day. Review of Systems Constitutional: Denied any fatigue denied any fever. Cardio vascular: denied any chest pain, palpitations Gastrointestinal: denied any nausea, vomiting, diarrhea Pulmonary: Reports shortness of breath, cough Neurologic: Continues with diffuse weakness and right greater than left UE weakness. All inpatient medications were reviewed and appropriate changes in these med ications as dictated in the interval history and assessment and plan. PHYSICAL EXAMINATION: GENERAL: The patient is alert and oriented x3, not in any acute distress. Well developed, well nourished. HEENT: Pupils are round and equally reacting to light. EOMI. No scleral icterus. No conjunctival pallor. Normocephalic, atraumatic. No pharyngeal erythema. No thyromegaly. CARDIOVASCULAR: S1 and S2 present. No murmurs, rubs, or gallops. PULMONARY: Chest is clear to auscultation, no wheezing or crackles. ABDOMEN: Soft, nontender, nondistended, normoactive bowel sounds. No palpable organomegaly. MUSCULOSKELETAL: No joint swelling or deformity. EXTREMITIES: No cyanosis, clubbing, Bilateral lower extremity edema and right arm peripheral edema NEUROLOGICAL: Gross neurological examination did not reveal any focal deficits. Right UE weakness and edema Has mild LE weakness as well. SKIN: No rashes. Pressure injury/wound to the coccyx. Assessment Significant episode of unresponsiveness and new left sided weakness MRI positive for acute/subacute CVA right medial frontal lobe. 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 Cardiology consultation for the decreased LV systolic function recommending outpatient follow up 6 to 8 weeks for stress test. Sodium level has improved to 135 peripheral edema has significantly improved as well. Patient's mentation is improved she is more awake alert and oriented. Plan is for return to [facility] on discharge and insurance authorization is currently pending. Patient to discharge back to rehab on sunday. Continue with aspiration precautions and assistance with meals if needed. The impression and plan of care has been dictated by Janie Thompson, Nurse Practitioner as directed. Dr. Vicky MD I have performed a history and physical examination and medical decision making of this patient, discussed the same with the dictator, and agree with the di ctators assessment and plan as written, documented as a scribe. Based on total visit time, I have performed more than 50% of this visit. Objective - Vital Signs Vital signs: Vital Signs Temp 98.6 F 07/14/23 20:00 Pulse 91 07/15/23 04:00 Resp 19 07/15/23 04:00 BP 165/84 07/15/23 04:00 Pulse Ox 94 L 07/15/23 04:00 FiO2 50 07/07/23 11:25 Intake & Output 07/14/23 07/15/23 07/15/23 18:59 06:59 18:59 Intake Total 480 Output Total 850 1200 500 Balance -370 -1200 -500 Weight 77.5 kg Intake: Oral 480 Output: Urine 850 1200 500 Other: Voiding Method External Catheter External Catheter - Labs CBC & Chem 7: 07/12/23 07:21 07/15/23 08:26 Labs: Abnormal Lab Results - Last 24 Hours (Table) 07/14/23 07/14/23 07/14/23 Range/Units 09:03 11:25 16:39 Sodium 133 L (137-145) mmol/L Chloride 96 L (98-107) mmol/L Carbon Dioxide 32 H (22-30) mmol/L BUN 4 L (7-17) mg/dL Glucose 124 H (74-99) mg/dL POC Glucose (mg/dL) 135 H 169 H (70-110) mg/dL Calcium 8.1 L (8.4-10.2) mg/dL 07/14/23 07/15/23 Range/Units 20:23 05:56 Sodium (137-145) mmol/L Chloride (98-107) mmol/L Carbon Dioxide (22-30) mmol/L BUN (7-17) mg/dL Glucose (74-99) mg/dL POC Glucose (mg/dL) 217 H 172 H (70-110) mg/dL Calcium (8.4-10.2) mg/dL Assessment and Plan Time with Patient: Less than 30
--- NOTE | 2023-07-15 12:37 | P.PN ---
Subjective Progress Note Date: 07/15/23 Follow-up for hyponatremia. Sodium improving. No nausea vomiting diarrhea. Objective - Vital Signs Vital signs: Vital Signs Temp 98.1 F 07/15/23 12:00 Pulse 82 07/15/23 12:00 Resp 18 07/15/23 12:00 BP 168/91 07/15/23 12:00 Pulse Ox 94 L 07/15/23 12:00 FiO2 50 07/07/23 11:25 Intake & Output 07/14/23 07/15/23 07/15/23 18:59 06:59 18:59 Intake Total 480 240 Output Total 850 1200 700 Balance -370 1200 -460 Weight 77.5 kg Intake: Oral 480 240 Output: Urine 850 1200 700 Other: Voiding Method External Catheter External Catheter External Catheter - Exam No acute distress S1-S2 heard Decreased breath sounds Abdomen soft No edema - Labs CBC & Chem 7: 07/12/23 07:21 07/15/23 08:26 Labs: Abnormal Lab Results - Last 24 Hours (Table) 07/14/23 07/14/23 07/15/23 Range/Units 16:39 20:23 05:56 Sodium (137-145) mmol/L BUN (7-17) mg/dL Creatinine (0.52-1.04) mg/dL Glucose (74-99) mg/dL POC Glucose (mg/dL) 169 H 217 H 172 H (70-110) mg/dL Calcium (8.4-10.2) mg/dL 07/15/23 07/15/23 Range/Units 08:26 11:22 Sodium 135 L (137-145) mmol/L BUN 5 L (7-17) mg/dL Creatinine 0.47 L (0.52-1.04) mg/dL Glucose 155 H (74-99) mg/dL POC Glucose (mg/dL) 223 H (70-110) mg/dL Calcium 8.2 L (8.4-10.2) mg/dL Assessment and Plan Assessment: #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 #2 hypokalemia secondary to Florinef, decreased oral intake. #3 hypomagnesemia secondary to diuretic use #4 CHF with systolic dysfunction EF of 40% Plan: #1 sodium improving #2 stable from nephrology for discharge
[2023-07-15] MEDS: HYDROcodone/APAP 5-325MG 1 EACH TAB PO PRN (13:21)
[2023-07-15 16:07] LABS: Glucose,Whole Blood 141 mg/dL (70-110)
[2023-07-15 20:07] LABS: Glucose,Whole Blood 160 mg/dL (70-110)
[2023-07-15] MEDS: MAGNESIUM OXIDE 400 MG TAB PO SCH (20:40)
[2023-07-15] MEDS: ATORVASTATIN 40 MG TAB PO SCH (20:40)
[2023-07-15] MEDS ORDERED: INSULIN DETEMIR (LEVEMIR) 100 UNIT/ML SYR SQ SCH (21:00)
[2023-07-16 06:02] LABS: Glucose,Whole Blood 113 mg/dL (70-110)
[2023-07-16] MEDS: APIXABAN 5 MG TAB PO SCH (06:37)
[2023-07-16] MEDS: LEVOTHYROXINE 25 MCG TAB PO SCH (06:37)
[2023-07-16] MEDS: INSULIN ASPART (NovoLOG) 100 UNIT/ML VIAL SQ SCH ×6 (09:14→17:55)
[2023-07-16] MEDS: POTASSIUM CHLORIDE ER 20 MEQ TAB.ER PO SCH (09:23)
[2023-07-16] MEDS: METOPROLOL SUCCINATE (ER) 25 MG TAB.ER.24H PO SCH (09:23)
[2023-07-16] MEDS: CLOPIDOGREL 75 MG TAB PO SCH (09:23)
[2023-07-16] MEDS: MULTIVITAMINS, THERA 1 EACH TAB PO SCH (09:23)
[2023-07-16] MEDS: FLUDROCORTISONE 0.1 MG TAB PO SCH (09:23)
[2023-07-16] MEDS: FAMOTIDINE 20 MG TAB PO SCH (09:23)
[2023-07-16] MEDS: MAGNESIUM OXIDE 400 MG TAB PO SCH (09:23)
[2023-07-16] MEDS: CITALOPRAM HYDROBROMIDE 20 MG TAB PO SCH (09:23)
[2023-07-16] MEDS: HYDROPHILIC CREAM 180 GM TUBE TOPICAL SCH (09:32)
[2023-07-16 11:39] LABS: Glucose,Whole Blood 118 mg/dL (70-110)
--- NOTE | 2023-07-16 12:14 | P.PN ---
Subjective patient is seen for follow-up for hyponatremia secondary to SIADH. Sodium 135 today. No complaints Objective - Vital Signs Vital signs: Vital Signs Temp 98.1 F 07/16/23 09:20 Pulse 91 07/16/23 09:20 Resp 16 07/16/23 09:20 BP 189/65 07/16/23 09:20 Pulse Ox 95 07/16/23 09:20 FiO2 50 07/07/23 11:25 Intake & Output 07/15/23 07/16/23 07/16/23 18:59 06:59 18:59 Intake Total 240 Output Total 850 900 250 Balance -610 -900 -262 Weight 75.5 kg Intake: Oral 240 Output: Urine 850 900 250 Other: Voiding Method External Catheter External Catheter External Catheter - Exam .patient is awake, comfortable, in no acute distress Examination of the heart S1 and S2 Examination of the lungs bilateral breath sounds are heard Abdomen is soft nontender Examination of lower extremities shows no significant edema [employer] exam grossly intact - Labs CBC & Chem 7: 07/12/23 07:21 07/15/23 08:26 Labs: Abnormal Lab Results - Last 24 Hours (Table) 07/15/23 07/15/23 07/16/23 Range/Units 16:05 20:05 06:00 POC Glucose (mg/dL) 141 H 160 H 113 H (70-110) mg/dL 07/16/23 Range/Units 11:38 POC Glucose (mg/dL) 118 H (70-110) mg/dL Assessment and Plan Assessment: #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 #2 hypokalemia secondary to Florinef, decreased oral intake. #3 hypomagnesemia secondary to diuretic use #4 CHF with systolic dysfunction EF of 40% Plan: repeat labs today
[2023-07-16 13:43] VITALS: BP 172/85; PULSE 78; RESP 18; TEMP 98
--- NOTE | 2023-07-16 13:52 | P.PN ---
Subjective Progress Note Date: 07/16/23 Principal diagnosis: Acute hypoxic respiratory failure secondary to chronic systolic congestive heart failure, possible acute CVA 82-year-old female seen in the emergency department, on July 06. She has a history of prior CVA with right-sided deficits, and presents to the emergency department, from a nursing facility, for possible new CVA. The patient was found to be minimally responsive at the senior care, and only responsive to painful stimuli. For that reason, EMS was called, and she was brought to be evaluated. On arrival to the ER, the patient was slurring her words, and mumbling, without any comprehensible words. Brain CT showed evidence of encephalomalacia, within the left superior frontal gyrus with additional hypodensity extending to the left middle frontal gyrus. Findings were likely to reflect more chronic infarction then acute abnormality. Laboratory data includes a white count 12.3, hemoglobin 11.4, hematocrit 35.1, and a normal platelet count. Blood gases show pO2 of 95, pCO2 40, pH is 7.51. Sodium 133, potassium 3.4, chlorides 93, CO2 29, within normal BUN and creatinine. Pro- calcitonin level was 0.28. TSH was normal. Chest x-ray showed evidence of pulmonary vascular congestion, scattered infiltrates, and bilateral pleural effusions with cardiomegaly. Progress note dated 07/08/2023. 82-year-old female seen yesterday in consultation. The patient was thought to have either pneumonia and/or heart failure. Clinically, she feels better today. She remains on O2 at 6 L, with saturations of 98%. That can be titrated down. She's getting saline at 20 mL an hour. She did not use BiPAP last night. She was on BiPAP yesterday when I saw her. Current labs included glucose 154. On today's evaluation of 07/09/2023, seeing the patient for a follow-up. The patient is resting comfortably in bed. No signs of any significant respiratory distress. No focal neurological deficits. The patient's left-sided weakness is improved. Cardiac exam shows an ejection fraction of 40-45% and the patient's chest x-ray showed CHF and bilateral small pleural effusions the patient remains on IV Lasix. The patient has no significant complaints otherwise. Blood work from today shows a sodium level of 131, potassium level of 3.5, BUN is 40 with a creatinine of 0.4. Blood sugars at 192. Neuro workup is in progress and the patient is going to undergo an MRI/MRA of the brain. Chest x-ray from today still showing CHF with small pleural effusion and interstitial infiltrates bilaterally and the patient has previous sternotomy. The patient remains on IV Zosyn. The patient remains on Lasix 20 mg IV every 12 hours. The fluid balance over the past 24 hours essentially negative. The patient has no specific complaints at this point in time. 07/10/2023, I'm seeing the patient for a follow-up. The patient has been on oxygen and she remains on 1.5 L nasal cannula with a pulse ox of 93-94%. She has a congested cough. She is quite weak and debilitated. She is afebrile. She remains on broad-spectrum antibiotics and the patient remains on IV Zosyn. She is also receiving Lasix 20 mg IV every 12 hours. Blood work from today shows a sodium level of 129, potassium levels at 2.4 to be replaced, BUN is at 10 with a creatinine of 0.49. Neurologically, the patient is quite debilitated. She is weak. She is responsive. She does have some residual left-sided weakness. Her mentation is also slow. She is on aspirin and anticoagulation without a course regarding her chronic atrial fibrillation. Neurology is still on the case. MRI of the brain was completed yesterday and the patient was found to have an acute/subacute CVA involving the right medial frontal lobe possibly the cortex of the medial aspect of the left frontal lobe which is superimposed remote-appearing injury on the left frontal lobe. There is also nonspecific white matter changes. MRA of the brain showed no significant change and there was some mild to moderate narrowing of the right supraclinoid internal carotid artery otherwise there was no aneurysm. 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 On today's evaluation of 07/11/2023, the patient is on 2 L of oxygen by nasal cannula with a pulse ox of 96%. The patient is post CVA with left-sided weakness. The patient is currently on Plavix. The patient is also on an ticoagulation with Eliquis 5 mg by mouth twice a day regarding her chronic into fibrillation. No plans for cardiac catheterization per cardiology. Electrolytes are still abnormal and the patient's sodium levels of 126 with a potassium level of 2.2 that needs to be replaced with a BUN of 9 and a cr eatinine of 0.5 the patient is currently on normal saline at 20 mL an hour. The patient is receiving potassium supplements in addition to potassium replacement. No major change in her condition for now. The patient was seen by nephrology. She is euvolemic. Lasix was discontinued and the patient was placed on fluid restriction and salt tablets. 07/12/2023, the patient remains on oxygen at 2 L. A repeat chest x-ray was done and showed bibasilar pulmonary infiltrates and effusion consistent with CHF. The patient was on diuretics and diuretics were placed on hold because of hyponatremia. As such, the patient will be given another dose of Lasix today 20 mg IV push. She is still having generalized weakness and the weakness is more so on the right related to her recent CVA. The patient's sodium today is at 127, BUN is at 6 with a creatinine of 0.45 and a potassium levels at 3.7. Bic arb is at 33. The white cell count is 6.9 with a hemoglobin of 10.8. No respiratory distress. No difficulties in swallowing. Her oral intake is quite diminished. She remains significantly debilitated. 07/13/2023, the patient is awake and alert and she is communicating. No new complaints. She was given a dose of Lasix yesterday with adequate diuresis. She remains on IV Zosyn. She remains on 2 L of oxygen by nasal cannula. The labs from today shows a sodium level of 128 with a potassium level of 3.3. Note that his sodium level is slightly improved compared to yesterday. BUN is at 5 the creatinine 0.4. Blood sugars at 218. The patient is producing adequate amount of urine output. Oral intake remains poor. Hemodynamically stable. 07/14/2023, the patient remains on 2 L. No significant respiratory distress. Sodium level is improved and is currently up to 133. BUN is at 4 with a creatinine of 0.5 and the rest of the electrolytes are normal. No fever. No chills. On 3 L O2 nasal cannula with a pulse ox of 99%. She's afebrile. Tolerating her diet. 07/15/2023, patient is doing well. No complaints. A repeat chest x-ray was done and showed improvement in the lung findings with small amount of pleural effusions bilaterally. The patient otherwise is doing well. The patient oxygen and the patient is currently on room air oxygen. Tolerating diet. No aspiration. Blood work from today shows a sodium of 135, potassium of 4.4, BUN is at 5 with a creatinine of 0.47. No new onset focal neurological deficits and the patient's neurologic functions are stable. She is calm and comfortable without any respiratory difficulties. The patient is currently on Plavix. The patient is also on long-term and coagulation with Eliquis. Patient was reevaluated today on 07/16/2023, patient seems to be doing better, although she may benefit from diuretics, her diuretics have been placed on hold by nephrology chest x-ray continues to show small bilateral pleural effusions. Considering the patient is tolerating room air and O2 sat is 96%, will agree to hold diuretics for now. Electrolytes are normal, renal profile is normal. CBC is relatively unremarkable Objective - Vital Signs Vital signs: Vital Signs Temp 98 F 07/16/23 12:40 Pulse 78 07/16/23 12:40 Resp 18 07/16/23 12:40 BP 172/85 07/16/23 12:40 Pulse Ox 96 07/16/23 12:40 FiO2 50 07/07/23 11:25 Intake & Output 07/15/23 07/16/23 07/16/23 18:59 06:59 18:59 Intake Total 240 Output Total 850 900 250 Balance -610 -900 -250 Weight 75.5 kg Intake: Oral 240 Output: Urine 850 900 250 Other: Voiding Method External Catheter External Catheter External Catheter - Exam Physical Exam: Revealed an 82-year-old female in no distress on room air Head: Atraumatic, normocephalic HEENT:[Neck is supple.] [No neck masses.] [No thyromegaly.] [No JVD.] Chest: [Diminished breath sound bilaterally with dullness. Cardiac Exam: [Normal S1 and S2, no S3 gallop, no murmur.] Abdomen: [Soft, nontender, no megaly, no rebound, no guarding, normal bowel sounds.] Extremities: [No clubbing, no edema, no cyanosis.] Neurological Exam: [No focal neurologic deficit.] - Labs CBC & Chem 7: 07/12/23 07:21 07/15/23 08:26 Labs: Abnormal Lab Results - Last 24 Hours (Table) 07/15/23 07/15/23 07/16/23 Range/Units 16:05 20:05 06:00 POC Glucose (mg/dL) 141 H 160 H 113 H (70-110) mg/dL 07/16/23 Range/Units 11:38 POC Glucose (mg/dL) 118 H (70-110) mg/dL Assessment and Plan Assessment: Impression: Unresponsiveness with new left-sided weakness, questionable CVA or TIA Acute hypoxic respiratory failure secondary to congestive heart failure/acute systolic congestive heart failure ejection fraction of 40-45% Hyponatremia secondary to SIADH Type 2 diabetes History of previous CVA and right-sided deficit Chronic atrial fibrillation Hypothyroidism History of coronary and uterine cancer History of dyslipidemia Benign essential hypertension Chronic systolic congestive heart failure Recommendation: Continue present supportive care measures Continue to monitor sodium Continue to hold diuretics for now however if pulmonary status worsens may have to restart diuretics Continue antibiotics Possible rehab this week We will continue to Time with Patient: Less than 30
[2023-07-16 14:22] VITALS: BMI 32.5
[2023-07-16 14:22] LABS: African American GFR (CKD) >90 (>60 ml/min/1.73 sqM); Anion Gap 6 mmol/L; Blood Urea Nitrogen 6 mg/dL (7-17); Calcium 8.2 mg/dL (8.4-10.2); Carbon Dioxide 27 mmol/L (22-30); Chloride 102 mmol/L (98-107); Glucose 99 mg/dL (74-99); Non-African American GFR(CKD) >90 (>60 ml/min/1.73 sqM); Potassium 3.8 mmol/L (3.5-5.1); Sodium 135 mmol/L (137-145)
--- NOTE | 2023-07-16 14:26 | P.DS ---
Providers Date of admission: 07/06/23 06:42 Attending physician: Jet Coulter MD Consults: 07/06/23 06:43 Consult Physician Routine Consulting Provider: Kaushal Aguilera Consult Reason/Comments: CVA Do you want consulting provider notified?: Yes, Notify in am 07/06/23 18:34 Consult Physician Routine Consulting Provider: Jerad Aguilera Consult Reason/Comments: Increased oxygen requirements Do you want consulting provider notified?: Yes, Notify in am Consult Physician Urgent Consulting Provider: Jerad Aguilera Consult Reason/Comments: hypoxia Do you want consulting provider notified?: Yes 07/11/23 11:53 Consult Physician Routine Consulting Provider: Tomer Trinh Consult Reason/Comments: hyponatremia Do you want consulting provider notified?: Yes Primary care physician: Rohini Voss DO Hospital Course: Final Diagnosis Significant episode of unresponsiveness and new left sided weakness MRI positive for acute/subacute CVA right medial frontal lobe. 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 Patient does have history of atrial fibrillation and eliquis was increased to 5 mg twice a day this admission additionally patient will be discharged on Plavix 75 mg daily as well as a statin for primary stroke prevention. Patient is a total assist with physical therapy and will benefit from return to subacute rehab on discharge. Patient has been also started on lisinopril 2.5 mg daily for improved blood pressure control. Patient to follow- up with cardiology, pulmonary services, nephrology, neurology on discharge. Patient also to follow-up with her PCP Dr. Rohini Voss in 1-2 days. Patient is recommended to follow-up with the [facility] for the sacral/coccyx chronic wound. Local wound care in place to continue with saline cleanse and honey gel with sacrum border foam to change Sunday. Patient recommended to continue with Triad cream and to apply daily to the left foot ulcer/wound. Patient is continued on a dysphagia level III chopped diet with a 1200 mL fluid restriction and nectar thick liquids with no straws. Patie nt should be maintained and aspiration precautions. Patient can also continue with Glucerna 3 times a day with meals. Recommending to repeat labs in 2-3 days. 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 Patient also has history of stroke with residual right-sided deficits. Patient was just discharged week ago from [facility] where she was diagnosed with stroke and discharged to subacute rehab on eliquis 2.5 mg daily. As well as aspirin 81 mg daily. While at the care home patient developed altered mental status and was unresponsive as well as a new left-sided weakness. Patient was brought to [facility] for further evaluation. She was at [facility] for rehabilitation which is close to her daughter's house. Brain CT on admission shows encephalomalacia with missed left superior frontal gyrus with additional hypodensity extending to the left middle frontal gyrus. This is related to chronic infarction with no signs of acute infarction identified. There is small vessel ischemic degenerative changes cerebral and cerebellar atrophy. Patient also had a CT angiography completed which was a limited examination given lack of Imaging of the head. 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 There is burden of atherosclerotic disease as described in the body of the report. Chest x-ray shows pulmonary venous congestion with scattered infiltrates bilateral pleural effusions and cardiomegaly on initial. Patient was admitted to the hospital under medicine with a consult placed to neurology for further evaluation. Additional stroke workup includes an EEG which was negative for any seizure-like activity. Patient had an echocardiogram done shows mild impaired LV function with an EF of 40-45% with thickened mitral valve and mitral valve prolapse with [id number] MR. This is a change from prior as per the reports from her prior hospital stay patient had an echocardiogram done showing an EF of 65-70%. Due to the new systolic heart failure cardiology was consult in for evaluation. Patient was treated with IV Lasix and had improvement in her peripheral edema and was weaned to room air. Patient did have hyponatremia this is likely due to the volume overload and likely attribute it also to her altered mentation and lethargy as this improved also with improvement of her sodium. Pulmonary evaluated the patient as well. Patient underwent a head MRA and a brain MRI which shows mild to moderate narrowing of the right supra clinoid internal carotid artery otherwise there is no aneurysm or significant stenosis. There is acute subacute CVA involving the right medial frontal body possibly the cortex of the medial aspect of the left frontal lobe which is superimposed on a remote appearing injury of the left frontal lobe. There is nonspecific white matter changes likely secondary to small vessel ischemic disease. recommending to increase eliquis up to 5 mg twice a day and patient also to continue on Plavix 75 mg daily medications have been adjusted. Recent checks x-ray does show persistent but slightly improved pulmonary venous congestion with basilar pleural effusions and probable atelectasis. Underlying infiltrates other etiologies are not excluded. There was concern for possible aspiration pneumonia due to patient's intermittent lethargy and she received IV Zosyn while in the hospital. Diet was downgraded to a dysphagia level III chopped with aspiration precautions and also a fluid restriction. Patient does need assistance and encouragement to use her incentive spirometer for the atelectasis. Labs were repeated today with most recent sodium level of 135, potassium is 3.8, normal kidney function of BUN 6 creatinine 0.43 and a blood glucose of 118. Calcium is 8.2. Patient will discharge on a dose of oral Lasix 40 mg daily. Currently she is denying chest pain denies shortness of breath. She is denying any nausea vomiting or diarrhea. She does have increased appetite and has been also getting Glucerna with meals. Currently her lungs are clear but diminished no crackles noted in the lung bases. S1 and S2 is auscultated. She remains in atrial fibrillation with a controlled ventricular rate. Patient abdomen is soft and nontender. Peripheral edema has improved. She does have pressure reduction boots in place and would recommend is to continue at the rehab facility. Patient will be discharged today to subacute rehab. Please see medication reconciliation for list of current medications. Thank you for allowing us to participate in the care of this patient. The impression and plan of care has been dictated by Janie Thompson, Nurse Pr actitioner as directed. Dr. Vicky MD I have performed a history and physical examination and medical decision making of this patient, discussed the same with the dictator, and agree with the dicta tors assessment and plan as written, documented as a scribe. Based on total visit time, I have performed more than 50% of this visit. Patient Condition at Discharge: Fair Plan - Discharge Summary Discharge Rx Participant: No New Discharge Prescriptions: New Apixaban [Eliquis] 5 mg PO BID@0700,1900 tab INSULIN ASPART (NovoLOG) [NovoLOG (formulary)] 2 unit SQ AC-TID each Famotidine [Pepcid] 20 mg PO DAILY tab Clopidogrel [Plavix] 75 mg PO DAILY tab lisinopriL [Zestril] 2.5 mg PO DAILY tab Atorvastatin [Lipitor] 40 mg PO HS tab HYDROcodone/APAP 5-325MG [[place] 5-325] 1 each PO Q6HR PRN #4 tab PRN Reason: Pain INSULIN ASPART (NovoLOG) [NovoLOG (formulary)] 0 unit SQ ACHS each Metoprolol Succinate (ER) [Toprol XL] 25 mg PO DAILY tab Continue Insulin Lispro [humaLOG Kwikpen] See Protocol SQ ACHS Insulin Glargine,Hum.rec.anlog [Lantus Solostar Pen] 5 units SQ HS@2000 Icy Hot Back External Patch 5% 1 patch TRANSDERM HS amLODIPine [Norvasc] 5 mg PO DAILY Levothyroxine Sodium [Synthroid] 25 mcg PO DAILY@0500 Atorvastatin [Lipitor] 40 mg PO HS@2000 Multivitamins, Thera [Multivitamin (formulary)] 1 tab PO DAILY Acetaminophen [Tylenol 8 Hour] 650 mg PO Q6H PRN PRN Reason: Pain Fludrocortisone [Florinef] 0.1 mg PO DAILY Citalopram Hydrobromide [CeleXA] 20 mg PO DAILY Discontinued Metoprolol Tartrate [Lopressor] 25 mg PO BID Apixaban [Eliquis] 2.5 mg PO BID@0700,1900 Aspirin 81 mg PO DAILY Discharge Medication List Acetaminophen [Tylenol 8 Hour] 650 mg PO Q6H PRN 07/06/23 [History] Atorvastatin [Lipitor] 40 mg PO HS@199907/06/23 [History] Citalopram Hydrobromide [CeleXA] 20 mg PO DAILY 07/06/23 [History] Fludrocortisone [Florinef] 0.1 mg PO DAILY 07/06/23 [History] Icy Hot Back External Patch 5% 1 patch TRANSDERM HS 07/06/23 [History] Insulin Glargine,Hum.rec.anlog [Lantus Solostar Pen] 5 units SQ HS@199907/06/23 [History] Insulin Lispro [humaLOG Kwikpen] See Protocol SQ ACHS 07/06/23 [History] Levothyroxine Sodium [Synthroid] 25 mcg PO DAILY@0500 07/06/23 [History] Multivitamins, Thera [Multivitamin (formulary)] 1 tab PO DAILY 07/06/23 [History] amLODIPine [Norvasc] 5 mg PO DAILY 07/06/23 [History] Apixaban [Eliquis] 5 mg PO BID@0700,1900 tab 07/16/23 [Rx] Atorvastatin [Lipitor] 40 mg PO HS tab 07/16/23 [Rx] Clopidogrel [Plavix] 75 mg PO DAILY tab 07/16/23 [Rx] Famotidine [Pepcid] 20 mg PO DAILY tab 07/16/23 [Rx] HYDROcodone/APAP 5-325MG [[place] 5-325] 1 each PO Q6HR PRN #4 tab 07/16/23 [Rx] INSULIN ASPART (NovoLOG) [NovoLOG (formulary)] 0 unit SQ ACHS each 07/16/23 [Rx] INSULIN ASPART (NovoLOG) [NovoLOG (formulary)] 2 unit SQ AC-TID each 07/16/23 [Rx] Metoprolol Succinate (ER) [Toprol XL] 25 mg PO DAILY tab 07/16/23 [Rx] lisinopriL [Zestril] 2.5 mg PO DAILY tab 07/16/23 [Rx] Follow up Appointment(s)/Referral(s): Maximiliano Perales MD [Medical Doctor] - 1 Week Rohini Voss DO [Primary Care Provider] - 1-2 Days Adeel Prieto MD [Medical Doctor] - 1 Week [facility] [NON-STAFF] - 1 Week Mona Ferrell MD [STAFF PHYSICIAN] - As Needed Tomer Trinh DO [STAFF PHYSICIAN] - 1 Week Ambulatory/Diagnostic Orders: Basic Metabolic Panel [LAB.AMB] Time Frame: 3 Days, Location: None Selected Complete Blood Count w/diff [LAB.AMB] Time Frame: 3 Days, Location: None Selected Patient Instructions/Handouts: Ischemic Stroke (GEN) Activity/Diet/Wound Care/Special Instructions: Continue with local wound care to the sacral wound with honey gel and sacrum border foam to change Sunday. Cleanse with normal saline prior to applying the honey gel. Continue local wound care to the left foot ulcer/wound with Triad cream and apply daily after cleansing with normal saline. Patient can follow up with [facility] wound care center as needed. Continue on dysphagia level III chopped diet with 1200 mL fluid restriction and nectar thick liquids with no straws. Patient has an aspiration precaution and should be a one-to-one assist for feeding. Continue with Glucerna 3 times a day with meals Patient to follow-up with neurology, nephrology, cardiology as well as primary provider on discharge. Recommend to repeat labs in 2-3 days Patient has been discharged on eliquis 5 mg twice a day as well as Plavix and a statin for primary stroke prevention. Discharge Disposition: TRANSFER TO SNF/ECF
[2023-07-16 16:27] LABS: Glucose,Whole Blood 114 mg/dL (70-110)
== END 2023-07-16 18:15 | DRG 64 ==
LOC: EC 05:36 → 3SCARD 06:42
PROVIDERS: ADMIT Internal Medicine; ATTEND Internal Medicine
PROC: 5A09357 Assistance with Respiratory Ventilation, Less than 24 Consecutive Hours, Continuous Positive Airway Pressure (ICD-10-PCS; principal; 2023-07-06)
DX: I63.9 Cerebral infarction, unspecified (principal); I50.23 Acute on chronic systolic (congestive) heart failure; J96.01 Acute respiratory failure with hypoxia; J69.0 Pneumonitis due to inhalation of food and vomit; E22.2 Syndrome of inappropriate secretion of antidiuretic hormone; I48.19 Other persistent atrial fibrillation; G81.94 Hemiplegia, unspecified affecting left nondominant side; I69.351 Hemiplegia and hemiparesis following cerebral infarction affecting right dominant side; G93.49 Other encephalopathy; I42.8 Other cardiomyopathies; R47.81 Slurred speech; E78.5 Hyperlipidemia, unspecified; E87.6 Hypokalemia; E83.42 Hypomagnesemia; T38.0X5A Adverse effect of glucocorticoids and synthetic analogues, initial encounter; T50.2X5A Adverse effect of carbonic-anhydrase inhibitors, benzothiadiazides and other diuretics, initial encounter; I11.0 Hypertensive heart disease with heart failure; R29.732 NIHSS score 32; R13.10 Dysphagia, unspecified; L89.152 Pressure ulcer of sacral region, stage 2; L89.621 Pressure ulcer of left heel, stage 1; E03.9 Hypothyroidism, unspecified; G93.89 Other specified disorders of brain; I27.20 Pulmonary hypertension, unspecified; I34.1 Nonrheumatic mitral (valve) prolapse; I34.0 Nonrheumatic mitral (valve) insufficiency; I49.3 Ventricular premature depolarization; R53.81 Other malaise; L98.499 Non-pressure chronic ulcer of skin of other sites with unspecified severity; I25.10 Atherosclerotic heart disease of native coronary artery without angina pectoris; E11.622 Type 2 diabetes mellitus with other skin ulcer; I66.11 Occlusion and stenosis of right anterior cerebral artery; Z87.891 Personal history of nicotine dependence; Z79.01 Long term (current) use of anticoagulants; Z88.2 Allergy status to sulfonamides; Z79.899 Other long term (current) drug therapy; Z79.82 Long term (current) use of aspirin; Z79.4 Long term (current) use of insulin; Z79.890 Hormone replacement therapy; Z95.1 Presence of aortocoronary bypass graft; Z85.42 Personal history of malignant neoplasm of other parts of uterus; Z85.3 Personal history of malignant neoplasm of breast; Z85.038 Personal history of other malignant neoplasm of large intestine; Z79.52 Long term (current) use of systemic steroids
CPT/HCPCS: 36415; 36600; 70450; 70496; 70498; 70544; 70551; 71045; 71046; 80048; 80053; 80061; 81003; 82140; 82533; 82550; 82607; 82746; 82805; 83036; 83735; 83880; 83930; 83935; 84132; 84145; 84300; 84443; 84484; 85025; 85610; 85730; 86140; 93005; 93306; 93880; 94660; 94760; 95816; 96361; 96365; 96375; 99291